=== PATIENT | female | born 1980 | race American Indian/Alaskan Native ===

== ENCOUNTER 2016-02-21 10:21 | Outpatient (CLI) | payer MEDICARE ==
[2016-02-21 10:46] LABS: Hematocrit 24.8 % (30.3-42.9); Hemoglobin 8.5 gm/dl (10.1-14.3); Mean Corpuscular HGB Conc 34 % (30-34); Mean Corpuscular Hemoglobin 32 pg (28-32); Mean Corpuscular Volume 92 fl (79-97); Platelet Count 235 K/mm3 (140-440); Red Blood Count 2.68 M/mm3 (3.65-5.03); Red Cell Distribution Width 14.8 % (13.2-15.2)
[2016-02-21 11:41] LABS: Albumin 3.7 g/dL (3.9-5); Alkaline Phosphatase 201 units/L (35-129); BUN/Creatinine Ratio 5.57; Bilirubin,Total 0.2 mg/dL (0.1-1.2); Blood Urea Nitrogen 53 mg/dL (7-17); Calcium 8.2 mg/dL (8.4-10.2); Carbon Dioxide 23 mmol/L (22-30); Chloride 97.2 mmol/L (98-107); Glucose 84 mg/dL (65-100); Potassium 4.9 mmol/L (3.6-5.0); Sodium 139 mmol/L (137-145); Total Protein 7.4 g/dL (6.3-8.2)
[2016-02-21 11:42] LABS: Alanine Aminotransferase < 5 units/L (7-56); Anion Gap 24 mmol/L
[2016-02-21 21:41] LABS: Iron 64 ug/dL (37-170); Total Iron Binding Capacity 220 mcg/dL (250-450)
== END 2016-02-21 10:22 | disposition home or self-care (01) ==
LOC: LAB 10:21
DX: N18.6 End stage renal disease (principal); D63.1 Anemia in chronic kidney disease; R06.02 Shortness of breath
CPT/HCPCS: 36415; 80053; 82728; 83550; 83735; 85027

== ENCOUNTER 2016-08-29 10:31 | Outpatient (CLI) | payer MEDICARE ==
--- NOTE | 2016-08-29 13:37 | Ultrasound Report ---
Thyroid ultrasound: Hyperparathyroid. The right thyroid lobe measures 4 x 4.2 x 8.2 cm. It is occupied by a large relatively inhomogeneous mass containing scattered cystic areas with confluence of poorly circumscribed a smaller masses. Some scattered cystic areas are noted. In the superior lobe there is a calcific shell that may lie in the periphery of a mass but the mass itself is obscured by shadowing. The left lobe measures 15 x 17 x 55 mm. It is also heterogeneous. There is a complex hypodense area in the medial mid gland measuring 17 mm which is at least partially cystic. In the inferior lobe is a similar mass which is partially solid and partially cystic measuring 2 cm. In the isthmus there are 2 relatively cystic masses containing calcification measuring 8 and 11 mm. Impression: The findings appear to be primarily those of a goiter. Although there are some defined masses none of these have any suspicious characteristics. Recommendation: Followup exam in approximately one year is recommended to reevaluate any changes.
--- NOTE | 2016-09-01 10:54 | Nuclear Medicine Report ---
Parathyroid nuclear scan: Clinical findings of secondary hyperparathyroidism. Following injection of sestamibi tagged technetium 99m initial images demonstrate normal distribution activity. A slight area of focal increased activity is identified overlying the superior right thyroid lobe. On the 3 hour washout images there is still a very faint area of retained increased activity in this region. Impression: Suspicious area overlying the upper right thyroid lobe. Recommendation: Confirmation with additional imaging such as enhanced CT scan should be considered.
== END 2016-08-29 10:32 | disposition home or self-care (01) ==
LOC: NM 10:31
DX: N18.6 End stage renal disease (principal); N25.81 Secondary hyperparathyroidism of renal origin; E07.89 Other specified disorders of thyroid
CPT/HCPCS: 76536; 78070; A9500

== ENCOUNTER 2017-01-31 07:01 | Inpatient (IN) | payer MEDICARE ==
[2017-01-31] MEDS ORDERED: ZOFRAN IM ONE (10:40)
[2017-01-31 11:01] LABS: Basophils % (Auto) 0.5 % (0.0-1.8); Eosinophils % (Auto) 0.1 % (0.0-4.3); Hematocrit 39.4 % (30.3-42.9); Hemoglobin 12.9 gm/dl (10.1-14.3); Mean Corpuscular HGB Conc 33 % (30-34); Mean Corpuscular Hemoglobin 32 pg (28-32); Mean Corpuscular Volume 97 fl (79-97); Platelet Count 312 K/mm3 (140-440); Red Blood Count 4.04 M/mm3 (3.65-5.03); Red Cell Distribution Width 14.6 % (13.2-15.2); White Blood Count 18.3 K/mm3 (4.5-11.0)
[2017-01-31] MEDS ORDERED: APRESOLINE IV ONE (11:18)
[2017-01-31] MEDS ORDERED: BENTYL PO ONE ×2 (11:18→12:00)
[2017-01-31] MEDS ORDERED: REGLAN IV ONE (11:18)
[2017-01-31] MEDS ORDERED: CARAFATE PO ONE (11:18)
--- NOTE | 2017-01-31 11:19 | Emergency Department Report ---
ED General Adult HPI - General Chief complaint: Nausea/Vomiting/Diarrhea Stated complaint: N/V Time Seen by Provider: 01/31/17 11:06 Source: patient, RN notes reviewed Mode of arrival: Ambulatory Limitations: No Limitations - History of Present Illness Initial comments: This is a 36-year-old female who is previously unknown to this provider. 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 Presents to the ER at the assistance of one of her children. Patient reports that for the past 2 weeks, she's had body aches and chills, reports low-grade fever at home to 99/100. Reports that her dialysis nurse and blood cultures, reports that blood cultures came back negative. Patient describes nausea and vomiting, epigastric and lower abdominal discomfort, and throat discomfort from nausea and vomiting. No cough or mucus production, positive total body aches, patient reports making scant urine, and denies irritative/obstructive urinary symptoms. Patient also reports being given "antibiotics" for a "stomach infection", but can't recall what she was given. Her symptoms do not radiate anywhere, and they do not have exacerbating or relieving factors. -: Gradual, week(s) Radiation: abdomen Severity scale (0 -10): 0 Quality: aching Consistency: intermittent Improves with: none Worsens with: none Associated Symptoms: fever/chills, loss of appetite, malaise, nausea/vomiting, weakness - Related Data Allergies Allergy/AdvReac Type Severity Reaction Status Date / Time promethazine HCl Allergy Itching Verified 01/31/17 11:41 [From Phenergan] ED Review of Systems ROS: Stated complaint: N/V Other details as noted in HPI ED Past Medical Hx - Past Medical History Previous Medical History?: Yes Hx Hypertension: Yes Hx Renal Disease: Yes (Home hemodialysis, Left chest AV graft) - Surgical History Past Surgical History?: Yes Additional Surgical History: Left chest permcath, AV fistula left arm - Social History Smoking Status: Never Smoker Substance Use Type: Prescribed ED Physical Exam - General Limitations: No Limitations General appearance: alert, in no apparent distress - Head Head exam: Present: atraumatic, normocephalic - Eye Eye exam: Present: normal appearance, EOMI. Absent: nystagmus - ENT ENT exam: Present: normal exam, normal orophraynx, mucous membranes moist, normal external ear exam - Neck Neck exam: Present: normal inspection, full ROM - Respiratory Respiratory exam: Present: normal lung sounds bilaterally. Absent: respiratory distress - Cardiovascular Cardiovascular Exam: Present: normal rhythm, tachycardia, normal heart sounds. Absent: systolic murmur, diastolic murmur, rubs, gallop - GI/Abdominal GI/Abdominal exam: Present: soft, tenderness, normal bowel sounds, other (there is epigastric tenderness, there is no rebound, guarding or peritoneal signs). Absent: distended, guarding, rebound, rigid, pulsatile mass - Extremities Exam Extremities exam: Present: normal inspection, full ROM, normal capillary refill , other (upper extremity AV fistula noted, no redness, pus or streaking. 2+ pulses noted in the bilateral upper and lower extremities, compartment is soft.) . Absent: pedal edema, joint swelling, calf tenderness - Back Exam Back exam: Present: normal inspection, full ROM. Absent: tenderness, CVA tenderness (R), paraspinal tenderness, vertebral tenderness - Neurological Exam Neurological exam: Present: alert, oriented X3, CN II-XII intact, other ( Extraocular movements intact. Tongue midline. No facial droop. Facial sensation intact to light touch in the V1, V2, V3 distribution bilaterally. 5 and 5 strength in 4 extremities.. Sensation is intact to light touch in 4 extremities.). Absent: motor sensory deficit - Psychiatric Psychiatric exam: Present: normal affect, normal mood - Skin Skin exam: Present: warm, dry, intact, normal color. Absent: rash ED Course Vital Signs 01/31/17 01/31/17 01/31/17 07:11 07:29 08:06 Temperature 98.7 F 99.9 F H Pulse Rate 114 H 105 H Respiratory 18 18 18 Rate Blood Pressure 164/122 164/122 183/140 O2 Sat by Pulse 99 99 Oximetry 01/31/17 01/31/17 01/31/17 10:30 10:45 11:00 Temperature Pulse Rate 100 H 103 H Respiratory 13 13 Rate Blood Pressure 174/131 194/142 O2 Sat by Pulse 99 100 98 Oximetry 01/31/17 01/31/17 01/31/17 11:30 11:43 12:05 Temperature 99.1 F Pulse Rate 107 H 114 H Respiratory 17 16 Rate Blood Pressure 194/147 194/147 O2 Sat by Pulse 100 98 Oximetry 01/31/17 12:37 Temperature Pulse Rate 100 H Respiratory 19 Rate Blood Pressure 194/147 O2 Sat by Pulse Oximetry - Reevaluation(s) Reevaluation #1: 01/31/17 11:29 Differential diagnosis, including not limited to: Viral syndrome, pneumonia, intra-abdominal infection, urinary tract infection, viremia, bacteremia, electrolyte derangement Assessment and plan: 36-year-old female with a complaint of abdominal pain, subjective fevers, epigastric burning, malaise, reports negative outpatient blood cultures with tachycardia, leukocytosis, ruling in for systemic inflammatory response syndrome. Has a mildly tender abdomen. Patient will be medicated appropriately, noncontrast CT scan of abdomen and pelvis and chest x- ray are pending, I will discuss with her lock and dam equipment repairer once her laboratory studies and CT scan have resulted. 01/31/17 12:24 Reevaluation #2: 01/31/17 13:[address] scan negative. X-ray of the chest nondiagnostic. Elevated lactic acid is noted. Elevated blood pressure also appreciated, however given the patient is ruling in for systemic inflammatory response syndrome, I am concerned about precipitating hemodynamic collapse if administering antihypertensive medication. Patient will be loaded empirically with 250 mL of normal saline, and ceftriaxone. Given underlying renal insufficiency, the recommended dose for sepsis, 30 mL/kg would not be safe or prudent at this time , especially given that the patient does not demonstrate hemodynamic instability. Discussed with covering nephrology, Dr. Marcos, he agrees with plan , and will follow in consultation. Hospital physician paged Reevaluation #3: 01/31/17 13:10 Dr Pedraza accepts patient to the medical service ED Medical Decision Making - Lab Data Result diagrams: 01/31/17 10:58 01/31/17 10:58 Vital Signs 01/31/17 01/31/17 01/31/17 07:11 07:29 08:06 Temperature 98.7 F 99.9 F H Pulse Rate 114 H 105 H Respiratory 18 18 18 Rate Blood Pressure 164/122 164/122 183/140 O2 Sat by Pulse 99 99 Oximetry 01/31/17 01/31/17 01/31/17 10:30 10:45 11:00 Temperature Pulse Rate 100 H 103 H Respiratory 13 13 Rate Blood Pressure 174/131 194/142 O2 Sat by Pulse 99 100 98 Oximetry 01/31/17 01/31/17 11:30 11:43 Temperature 99.1 F Pulse Rate 107 H Respiratory 17 Rate Blood Pressure 194/147 O2 Sat by Pulse 100 Oximetry Lab Results 01/31/17 01/31/17 01/31/17 Range/Units 10:58 10:58 10:58 WBC 18.3 H (4.5-11.0) K/mm3 RBC 4.04 (3.65-5.03) M/mm3 Hgb 12.9 (10.1-14.3) gm/dl Hct 39.4 (30.3-42.9) % MCV 97 (79-97) fl MCH 32 (28-32) pg MCHC 33 (30-34) % RDW 14.6 (13.2-15.2) % Plt Count 312 (140-440) K/mm3 Lymph % (Auto) 13.1 L (13.4-35.0) % [place] % (Auto) 8.0 H (0.0-7.3) % Eos % (Auto) 0.1 (0.0-4.3) % Baso % (Auto) 0.5 (0.0-1.8) % Lymph # 2.4 (1.2-5.4) K/mm3 [place] # 1.5 H (0.0-0.8) K/mm3 Eos # 0.0 (0.0-0.4) K/mm3 Baso # 0.1 (0.0-0.1) K/mm3 Seg Neutrophils % 78.3 H (40.0-70.0) % Seg Neutrophils # 14.3 H (1.8-7.7) K/mm3 Sodium 137 (137-145) mmol/L Potassium 4.5 (3.6-5.0) mmol/L Chloride 90.7 L (98-107) mmol/L Carbon Dioxide 23 (22-30) mmol/L Anion Gap 28 mmol/L BUN 30 H (7-17) mg/dL Creatinine 8.4 H (0.7-1.2) mg/dL Estimated GFR 6 ml/min BUN/Creatinine Ratio 4 % Glucose 87 (65-100) mg/dL Calcium 10.2 (8.4-10.2) mg/dL Total Bilirubin 0.30 (0.1-1.2) mg/dL Direct Bilirubin < 0.2 (0-0.2) mg/dL Indirect Bilirubin 0.1 mg/dL AST 26 (5-40) units/L ALT < 5 L (7-56) units/L Alkaline Phosphatase 174 H (35-129) units/L Total Creatine Kinase 74 (30-135) units/L Total Protein 9.1 H (6.3-8.2) g/dL Albumin 4.4 (3.9-5) g/dL Albumin/Globulin Ratio 0.9 % Lipase 19 (13-60) units/L HCG, Quant (0-4) mIU/mL // Range/Units 11:23 WBC (4.5-11.0) K/mm3 RBC (3.65-5.03) M/mm3 Hgb (10.1-14.3) gm/dl Hct (30.3-42.9) % MCV (79-97) fl MCH (28-32) pg MCHC (30-34) % RDW (13.2-15.2) % Plt Count (140-440) K/mm3 Lymph % (Auto) (13.4-35.0) % [place] % (Auto) (0.0-7.3) % Eos % (Auto) (0.0-4.3) % Baso % (Auto) (0.0-1.8) % Lymph # (1.2-5.4) K/mm3 [place] # (0.0-0.8) K/mm3 Eos # (0.0-0.4) K/mm3 Baso # (0.0-0.1) K/mm3 Seg Neutrophils % (40.0-70.0) % Seg Neutrophils # (1.8-7.7) K/mm3 Sodium (137-145) mmol/L Potassium (3.6-5.0) mmol/L Chloride (98-107) mmol/L Carbon Dioxide (22-30) mmol/L Anion Gap mmol/L BUN (7-17) mg/dL Creatinine (0.7-1.2) mg/dL Estimated GFR ml/min BUN/Creatinine Ratio % Glucose (65-100) mg/dL Calcium (8.4-10.2) mg/dL Total Bilirubin (0.1-1.2) mg/dL Direct Bilirubin (0-0.2) mg/dL Indirect Bilirubin mg/dL AST (5-40) units/L ALT (7-56) units/L Alkaline Phosphatase (35-129) units/L Total Creatine Kinase (30-135) units/L Total Protein (6.3-8.2) g/dL Albumin (3.9-5) g/dL Albumin/Globulin Ratio % Lipase (13-60) units/L HCG, Quant < 2 (0-4) mIU/mL - EKG Data When compared to previous EKG there are: previous EKG unavailable 01/31/17 12:25 Sinus tachycardia, 103 bpm, normal axis, QTC prolonged, poor R-wave progression , abnormal EKG, not having chest pain, not morphologically consistent with ST elevation myocardial infarction. - Radiology Data Radiology results: pending, report reviewed, image reviewed Referring Physician: RASHEED DENIS Patient Name: SAGE CABEZAS Date of : 1980 Sex: Female Report Date: 2017-01-31 Report Status: Finalized Findings [facility] [address] [place] [address] Cat Scan Report Signed Patient: SAGE CABEZAS MR#: [id number] : 1980 Acct:[id number] Age/Sex: 36 / F ADM Date: 01/31/17 Loc: ED Attending Dr: Ordering Physician: RASHEED DENIS MD Date of Service: 01/31/17 Procedure(s): CT abdomen pelvis wo con Accession Number(s): [id number] cc: RASHEED DENIS MD CT scan of abdomen and pelvis without IV contrast: Findings: Normal lung bases. No pleural pericardial effusion. Moderate sized hiatal hernia. Normal stomach gallbladder and pancreas. Calcification in the spleen probably is from calcified granuloma. Normal adrenals. Right kidney measures 7.3 cm vertically and left kidney measures 6.5 cm vertically. Subcentimeter cysts are identified in the cortex of the right kidney with the largest cyst measuring 2 cm. Exophytic large cyst in the lower pole of left kidney measures 2.2 cm. Subcentimeter exophytic cysts and intraparenchymal cysts also noted left kidney. No calculi. No evidence of hydronephrosis. Normal bladder. Uterus may be enlarged. No mass in the uterus. No free intraperitoneal fluid. No evidence of adenopathy. Small umbilical hernia containing fat. Normal appendix. Diverticulosis sigmoid colon. Large stool in the ascending and transverse colon. No bowel distention. Impression: Calcified granuloma spleen. Multiple cysts right and left kidney. Bilateral small kidneys. Moderate size hiatal hernia. Small umbilical hernia. Diverticulosis sigmoid colon stool in transverse and ascending colon Transcribed By: PTP Dictated By: TY BETTS MD Electronically Authenticated By: TY BETTS MD Signed Date/Time: 01/31/17 1214 [facility] [address] [place] [address] XRay Report Signed Patient: SAGE CABEZAS MR#: [id number] : 1980 Acct:[id number] Age/Sex: 36 / F ADM Date: 01/31/17 Loc: ED Attending Dr: Ordering Physician: RASHEED DENIS MD Date of Service: 01/31/17 Procedure(s): XR chest routine 2V Accession Number(s): [id number] cc: RASHEED DENIS MD Fluoro Time In Minutes: Single view chest: Compared to 12/20/14. History: Nausea vomiting. Fever. Findings: Cardiomegaly. Trachea is midline. Stable large well venous catheter with tip in the right atrium. No consolidation or pleural effusion. Impression: No acute cardiopulmonary findings. Transcribed By: PTP Dictated By: TY BETTS MD Electronically Authenticated By: TY BETTS MD Signed Date/Time: 01/31/17 1234 DD/ 1234 Critical care attestation.: If time is entered above; I have spent that time in minutes in the direct care of this critically ill patient, excluding procedure time. ED Disposition Clinical Impression: SIRS (systemic inflammatory response syndrome) Disposition: DC-[id number] OP ADMIT IP TO THIS HOSP Is pt being admited?: Yes Condition: Good Referrals: RASHEED TIWARI MD [Primary Care Provider] - 3-5 Days
[2017-01-31] MEDS ORDERED: TYLENOL PO ONE (11:23)
[2017-01-31 11:27] LABS: Calcium 10.2 mg/dL (8.4-10.2); Chloride 90.7 mmol/L (98-107)
[2017-01-31 11:33] LABS: Potassium 4.5 mmol/L (3.6-5.0)
[2017-01-31] MEDS ORDERED: BENTYL ONE (11:42)
[2017-01-31 11:51] LABS: Albumin 4.4 g/dL (3.9-5); Albumin/Globulin Ratio 0.9 %; Alkaline Phosphatase 174 units/L (35-129); Creatine Kinase 74 units/L (30-135); Lipase 19 units/L (13-60); Total Protein 9.1 g/dL (6.3-8.2)
[2017-01-31 11:57] LABS: Alanine Aminotransferase < 5 units/L (7-56); Bilirubin,Direct < 0.2 mg/dL (0-0.2); Bilirubin,Indirect 0.1 mg/dL
--- NOTE | 2017-01-31 12:32 | Cat Scan Report ---
CT scan of abdomen and pelvis without IV contrast: Findings: Normal lung bases. No pleural pericardial effusion. Moderate sized hiatal hernia. Normal stomach gallbladder and pancreas. Calcification in the spleen probably is from calcified granuloma. Normal adrenals. Right kidney measures 7.3 cm vertically and left kidney measures 6.5 cm vertically. Subcentimeter cysts are identified in the cortex of the right kidney with the largest cyst measuring 2 cm. Exophytic large cyst in the lower pole of left kidney measures 2.2 cm. Subcentimeter exophytic cysts and intraparenchymal cysts also noted left kidney. No calculi. No evidence of hydronephrosis. Normal bladder. Uterus may be enlarged. No mass in the uterus. No free intraperitoneal fluid. No evidence of adenopathy. Small umbilical hernia containing fat. Normal appendix. Diverticulosis sigmoid colon. Large stool in the ascending and transverse colon. No bowel distention. Impression: Calcified granuloma spleen. Multiple cysts right and left kidney. Bilateral small kidneys. Moderate size hiatal hernia. Small umbilical hernia. Diverticulosis sigmoid colon stool in transverse and ascending colon
[2017-01-31] MEDS ORDERED: ROCEPHIN/NS 1 GM/50 ML 1 GM/50 ML BAG IV ONE (12:51)
[2017-01-31] MEDS ORDERED: NACL 0.9% 250ML 250 ML IV ONE (12:51)
--- NOTE | 2017-01-31 12:52 | XRay Report ---
Single view chest: Compared to 12/20/14. History: Nausea vomiting. Fever. Findings: Cardiomegaly. Trachea is midline. Stable large well venous catheter with tip in the right atrium. No consolidation or pleural effusion. Impression: No acute cardiopulmonary findings.
[2017-01-31] MEDS ORDERED: NACL 0.9% 1000 ML 1,000 ML ONE ×2 (12:59→13:12)
[2017-01-31] MEDS ORDERED: cefTRIAXone 1 GM in NACL 0.9% 20 ML IV ONE (13:00)
[2017-01-31] MEDS ORDERED: ROCEPHIN ONE (13:04)
--- NOTE | 2017-01-31 13:10 | History and Physical Report ---
History of Present Illness Chief complaint: I have fever, and i feel sick, and i keep getting weak History of present illness: 36 YO Female with ESRD on Home HD(T,R,Sa), HTN, Obesity presents to ED for evaluation. Pt states that she has experienced feeling weak, tired for the past 2 weeks. Pt states tht she has experienced fever(subjective), body aches, and shaking chills. Pt states that symptoms have gotten worse over the past 3 days, and now she feel too weak to walk independently and connot conduct activities of daily living. Pt seen and evaluated in ED and found to have sepsis. Pt treated IAW sepsis protocol, Nephrology consulted in ED. Past History Past Medical History: ESRD, hypertension, other (obesity) Past Surgical History: Other (Left permachth, L AVF) Social history: . denies: smoking, alcohol abuse, prescription drug abuse Family history: diabetes, hypertension Medications and Allergies Allergies Allergy/AdvReac Type Severity Reaction Status Date / Time promethazine HCl Allergy Itching Verified 01/31/17 11:41 [From Phenergan] Review of Systems Constitutional: fever, chills, fatigue, weakness Ears, nose, mouth and throat: no ear pain, no ear discharge, no tinnitis, no decreased hearing, no nose pain Breasts: no change in shape, no swelling, no mass Cardiovascular: no chest pain, no orthopnea, no palpitations, no rapid/ irregular heart beat, no edema Respiratory: no cough, no cough with sputum, no excessive sputum, no hemoptysis , no shortness of breath Gastrointestinal: no nausea, no vomiting, no diarrhea, no constipation Genitourinary Female: no pelvic pain, no flank pain, no menorrhagia, no dysuria , no urinary frequency Rectal: no pain, no incontinence, no bleeding Musculoskeletal: no neck stiffness, no neck pain, no shooting arm pain, no arm numbness/tingling, no low back pain Integumentary: no rash, no pruritis, no redness, no sores, no wounds, no jaundice Neurological: no head injury, no transient paralysis, no paralysis, no weakness , no parathesias, no numbness Psychiatric: no anxiety, no memory loss, no change in sleep habits, no sleep disturbances, no insomnia, no hypersomnia Endocrine: no cold intolerance, no heat intolerance, no polyphagia, no excessive thirst, no polydipsia, no polyuria, no nocturia Hematologic/Lymphatic: no easy bruising, no easy bleeding Allergic/Immunologic: no urticaria, no allergic rhinitis, no wheezing Exam - Constitutional Vitals: Temp Pulse Resp BP Pulse Ox 99.1 F 100 H 19 194/147 98 01/31/17 11:43 01/31/17 12:37 01/31/17 12:37 01/31/17 12:37 01/31/17 12:05 General appearance: Present: mild distress - EENT Eyes: Present: PERRL ENT: hearing intact, clear oral mucosa - Neck Neck: Present: supple, normal ROM - Respiratory Respiratory effort: normal Respiratory: bilateral: CTA - Cardiovascular Heart Sounds: Present: S1 & S2. Absent: rub, click - Extremities Extremities: pulses symmetrical, No edema Peripheral Pulses: abnormal (Capillary refill greater than 3.5 seconds) - Abdominal General gastrointestinal: Present: soft, non-tender, non-distended, normal bowel sounds Female genitourinary: Present: normal - Integumentary Integumentary: Present: clear, warm, dry - Musculoskeletal Musculoskeletal: gait normal, strength equal bilaterally - Psychiatric Psychiatric: appropriate mood/affect, intact judgment & insight - Neurologic Neurologic: CNII-XII intact, moves all extremities Results - Labs CBC & Chem 7: 01/31/17 10:58 01/31/17 10:58 Labs: Abnormal lab results 01/31/17 01/31/17 01/31/17 Range/Units 10:58 10:58 10:58 WBC 18.3 H (4.5-11.0) K/mm3 Lymph % (Auto) 13.1 L (13.4-35.0) % [place] % (Auto) 8.0 H (0.0-7.3) % [place] # 1.5 H (0.0-0.8) K/mm3 Seg Neutrophils % 78.3 H (40.0-70.0) % Seg Neutrophils # 14.3 H (1.8-7.7) K/mm3 Chloride 90.7 L (98-107) mmol/L BUN 30 H (7-17) mg/dL Creatinine 8.4 H (0.7-1.2) mg/dL Lactic Acid (0.7-2.0) mmol/L ALT < 5 L (7-56) units/L Alkaline Phosphatase 174 H (35-129) units/L Total Protein 9.1 H (6.3-8.2) g/dL 01/31/ Range/Units 11:47 WBC (4.5-11.0) K/mm3 Lymph % (Auto) (13.4-35.0) % [place] % (Auto) (0.0-7.3) % [place] # (0.0-0.8) K/mm3 Seg Neutrophils % (40.0-70.0) % Seg Neutrophils # (1.8-7.7) K/mm3 Chloride (98-107) mmol/L BUN (7-17) mg/dL Creatinine (0.7-1.2) mg/dL Lactic Acid 2.40 H* (0.7-2.0) mmol/L ALT (7-56) units/L Alkaline Phosphatase (35-129) units/L Total Protein (6.3-8.2) g/dL Assessment and Plan - Patient Problems (1) Sepsis Current Visit: Yes Status: Acute Qualifiers: Sepsis type: sepsis due to unspecified organism Qualified Code(s): A41.9 - Sepsis, unspecified organism Plan to address problem: Sepsis Protocol: IV abx, IVF resuscitation IAW sepsis protocol, monitor uop q shift, serial lactic acid measurement, (2) ESRD (end stage renal disease) on dialysis Current Visit: Yes Status: Acute Plan to address problem: Nephrology consulted in ED, dialysis as per renal team. (3) Hypertensive urgency Current Visit: Yes Status: Acute Plan to address problem: monitor bp q shift, continue medical management, IV hydralazine for systolic above 155, (4) Obesity Current Visit: Yes Status: Acute Qualifiers: Body mass index: BMI 35.0-35.9 Plan to address problem: Increased physical activity at discharge, balanced diet, (5) DVT prophylaxis Current Visit: Yes Status: Acute
[2017-01-31] MEDS ORDERED: TYLENOL PO PRN (13:17)
[2017-01-31] MEDS ORDERED: NACL 0.9% 1000 ML IV ONE (13:17)
[2017-01-31] MEDS ORDERED: PROVENTIL IH PRN (13:17)
[2017-01-31] MEDS ORDERED: ZOFRAN IV PRN (13:17)
[2017-01-31] MEDS ORDERED: VANCOMYCIN VIAL IV ONE (13:17)
[2017-01-31] MEDS ORDERED: VANCOMYCIN 2,000 MG in NACL 0.9% 500 ML 500 ML IV ONE (13:45)
[2017-01-31] MEDS ORDERED: VANCOMYCIN PHARMACY TO DOSE IV SCH (14:00)
[2017-01-31] MEDS ORDERED: ZOSYN/NS 4.5GM/100ML 4.5 GM/100 ML VIAL IV SCH (14:00)
[2017-01-31] MEDS: ZOSYN/NS 2.25 GM/50ML 2.25 GM/50 ML BAG IV SCH ×2 (14:06→23:24)
[2017-01-31] MEDS ORDERED: ULTRAM PO PRN (15:46)
[2017-01-31] MEDS ORDERED: BENADRYL PO ONE (19:00)
[2017-01-31] MEDS: NORVASC PO SCH (20:44)
[2017-01-31] MEDS: CATAPRES PO SCH (20:45)
[2017-01-31] MEDS: PEPCID PO SCH (23:24)
[2017-02-01] MEDS: ZOSYN/NS 2.25 GM/50ML 2.25 GM/50 ML BAG IV SCH (05:34)
[2017-02-01 06:27] LABS: Bacteria,Urine 2+ /HPF (Negative); Bilirubin,Urine NEG (Negative); Blood,Urine LG (Negative); Ketones,Urine NEG (Negative); Leukocyte Esterase,Urine MOD (Negative); Nitrite,Urine NEG (Negative); RBC,Urine > 182.0 /HPF (0.0-6.0); Urobilinogen,Urine < 2.0 mg/dL (<2.0); WBC,Urine > 182.0 /HPF (0.0-6.0)
--- NOTE | 2017-02-01 08:46 | Progress Note ---
Assessment and Plan Assessment and plan: Sepsis Sepsis Protocol: continue IV abx, significant leukocytosis, monitor uop q shift , serial lactic acid improved, f/u cx UTI follow-up urine cultures ESRD (end stage renal disease) on dialysis Nephrology consulted in ED, dialysis as per renal team. Hypertensive urgency monitor bp q shift, continue medical management, IV hydralazine for systolic above 155, Obesity Increased physical activity at discharge, balanced diet, DVT prophylaxis Lovenox daily History Interval history: no new issues overnight Hospitalist Physical - Constitutional Vitals: Temp Pulse Resp BP Pulse Ox 98.8 F 95 H 20 137/88 100 02/01/17 07:35 02/01/17 07:35 02/01/17 07:35 02/01/17 07:35 02/01/17 07:35 General appearance: Present: no acute distress - EENT Eyes: Present: PERRL, EOM intact ENT: hearing intact, clear oral mucosa, dentition normal - Neck Neck: Present: supple, normal ROM - Respiratory Respiratory effort: normal Respiratory: bilateral: CTA - Cardiovascular Rhythm: regular Heart Sounds: Present: S1 & S2. Absent: gallop, rub - Extremities Extremities: no ischemia, No edema, Full ROM - Abdominal General gastrointestinal: soft, non-tender, non-distended, normal bowel sounds - Integumentary Integumentary: Present: clear, warm, dry - Neurologic Neurologic: CNII-XII intact, moves all extremities Results - Labs CBC & Chem 7: 01/31/17 10:58 01/31/17 10:58 Labs: Laboratory Last Values WBC 18.3 K/mm3 (4.5-11.0) H 01/31/17 10:58 RBC 4.04 M/mm3 (3.65-5.03) 01/31/17 10:58 Hgb 12.9 gm/dl (10.1-14.3) 01/31/17 10:58 Hct 39.4 % (30.3-42.9) 01/31/17 10:58 MCV 97 fl (79-97) 01/31/17 10:58 MCH 32 pg (28-32) 01/31/17 10:58 MCHC 33 % (30-34) 01/31/17 10:58 RDW 14.6 % (13.2-15.2) 01/31/17 10:58 Plt Count 312 K/mm3 (140-440) 01/31/17 10:58 Lymph % (Auto) 13.1 % (13.4-35.0) L 01/31/17 10:58 [place] % (Auto) 8.0 % (0.0-7.3) H 01/31/17 10:58 Eos % (Auto) 0.1 % (0.0-4.3) 01/31/17 10:58 Baso % (Auto) 0.5 % (0.0-1.8) 01/31/17 10:58 Lymph # 2.4 K/mm3 (1.2-5.4) 01/31/17 10:58 [place] # 1.5 K/mm3 (0.0-0.8) H 01/31/17 10:58 Eos # 0.0 K/mm3 (0.0-0.4) 01/31/17 10:58 Baso # 0.1 K/mm3 (0.0-0.1) 01/31/17 10:58 Seg Neutrophils % 78.3 % (40.0-70.0) H 01/31/17 10:58 Seg Neutrophils # 14.3 K/mm3 (1.8-7.7) H 01/31/17 10:58 Sodium 137 mmol/L (137-145) 01/31/17 10:58 Potassium 4.5 mmol/L (3.6-5.0) 01/31/17 10:58 Chloride 90.7 mmol/L (98-107) L 01/31/17 10:58 Carbon Dioxide 23 mmol/L (22-30) 01/31/17 10:58 Anion Gap 28 mmol/L 01/31/17 10:58 BUN 30 mg/dL (7-17) H 01/31/17 10:58 Creatinine 8.4 mg/dL (0.7-1.2) H 01/31/17 10:58 Estimated GFR 6 ml/min 01/31/17 10:58 BUN/Creatinine Ratio 4 % 01/31/17 10:58 Glucose 87 mg/dL (65-100) 01/31/17 10:58 Lactic Acid 1.20 mmol/L (0.7-2.0) 02/01/17 04:50 Calcium 10.2 mg/dL (8.4-10.2) 01/31/17 10:58 Total Bilirubin 0.30 mg/dL (0.1-1.2) 01/31/17 10:58 Direct Bilirubin < 0.2 mg/dL (0-0.2) 01/31/17 10:58 Indirect Bilirubin 0.1 mg/dL 01/31/17 10:58 AST 26 units/L (5-40) 01/31/17 10:58 ALT < 5 units/L (7-56) L 01/31/17 10:58 Alkaline Phosphatase 174 units/L (35-129) H 01/31/17 10:58 Total Creatine Kinase 74 units/L (30-135) 01/31/17 10:58 Total Protein 9.1 g/dL (6.3-8.2) H 01/31/17 10:58 Albumin 4.4 g/dL (3.9-5) 01/31/17 10:58 Albumin/Globulin Ratio 0.9 % 01/31/17 10:58 Lipase 19 units/L (13-60) 01/31/17 10:58 HCG, Quant < 2 mIU/mL (0-4) 01/31/17 11:23 Urine Color Red (Yellow) 01/31/17 05:10 Urine Turbidity Cloudy (Clear) 01/31/17 05:10 Urine pH 6.0 (5.0-7.0) 01/31/17 05:10 Ur Specific [place] 1.015 (1.003-1.030) 01/31/17 05:10 Urine Protein 100 mg/dl mg/dL (Negative) 01/31/17 05:10 Urine Glucose (UA) 50 mg/dL (Negative) 01/31/17 05:10 Urine Ketones Neg mg/dL (Negative) 01/31/17 05:10 Urine Blood Lg (Negative) 01/31/17 05:10 Urine Nitrite Neg (Negative) 01/31/17 05:10 Urine Bilirubin Neg (Negative) 01/31/17 05:10 Urine Urobilinogen < 2.0 mg/dL (<2.0) 01/31/17 05:10 Ur Leukocyte Esterase Mod (Negative) 01/31/17 05:10 Urine WBC (Auto) > 182.0 /HPF (0.0-6.0) H 01/31/17 05:10 Urine RBC (Auto) > 182.0 /HPF (0.0-6.0) 01/31/17 05:10 U Epithel Cells (Auto) 52.0 /HPF (0-13.0) H 01/31/17 05:10 Urine Bacteria (Auto) 2+ /HPF (Negative) 01/31/17 05:10
[2017-02-01] MEDS: CATAPRES PO SCH (09:08)
[2017-02-01] MEDS: NORVASC PO SCH (09:08)
[2017-02-01] MEDS: PEPCID PO SCH (09:09)
--- NOTE | 2017-02-01 10:42 | Consultation ---
History of Present Illness - Reason for Consult end stage renal disease Requesting physician: RUT FONTANA - History of Present Illness 36 YO Female with ESRD on Home HD, HTN, Obesity presents to ED for evaluation. Pt states that she has experienced feeling weak, tired for the past 2 weeks. Pt states tht she has experienced fever(subjective), body aches, and shaking chills. Pt states that symptoms have gotten worse over the past 3 days, and now she feel too weak to walk independently and connot conduct activities of daily living. Pt seen and evaluated in ED and found to have sepsis. Her last hemodialysis treatment was day before yesterday, i.e. Thursday. She has just completed her home dialysis training. However she has not started doing home dialysis yet. Patient denies any shortness of breath. No further nausea or vomiting. Abdominal pain has also improved Past History Past Medical History: ESRD, hypertension, other (obesity) Past Surgical History: Other (Left permachth, L AVF) Social history: . denies: smoking, alcohol abuse, prescription drug abuse Family history: diabetes, hypertension Medications and Allergies Allergies Allergy/AdvReac Type Severity Reaction Status Date / Time promethazine HCl Allergy Itching Verified 01/31/17 11:41 [From Phenergan] Home Medications Medication Instructions Recorded Confirmed Last Taken Type Carvedilol [Coreg] 25 mg PO BID 01/31/17 01/31/17 01/30/17 10:00 History 25 mg Clonidine HCl [Catapres] 0.3 tab PO TID 01/31/17 01/31/17 01/30/17 10:00 History 0.3 Losartan BID 01/31/17 01/30/17 10:00 History Sensipar 30 mg PO QPM 01/31/17 01/31/17 01/30/17 History 30 Sevelamer Carbonate [Renvela] 800 mg PO TIDWM 01/31/17 01/31/17 01/30/17 17:00 History 800 amLODIPine 10 mg PO DAILY 01/31/17 01/31/17 01/30/17 10:00 History 10 Active Meds: Active Medications Acetaminophen (Tylenol) 650 mg PO Q4H PRN PRN Reason: Pain MILD(1-3)/Fever >100.5/LEVIN Albuterol (Proventil) 2.5 mg IH Q4HRT PRN PRN Reason: Shortness Of Breath Amlodipine Besylate (Norvasc) 10 mg PO QDAY [facility] Last Admin: 02/01/17 09:08 Dose: 10 mg Clonidine HCl (Catapres) 0.3 mg PO TID [facility] Last Admin: 02/01/17 09:08 Dose: 0.3 mg Famotidine (Pepcid) 20 mg PO BID [facility] Last Admin: 02/01/17 09:09 Dose: 20 mg Piperacillin Sod/Tazobactam Sod (Zosyn/Ns 2.25 Gm/50ml) 2.25 gm in 50 mls @ 100 mls/hr IV Q8H [facility] Last Admin: 02/01/17 05:34 Dose: 100 mls/hr Ondansetron HCl (Zofran) 4 mg IV Q8H PRN PRN Reason: N/V unrelieved by Regkelvin Tramadol HCl (Ultram) 25 mg PO Q8H PRN PRN Reason: Pain, Moderate (4-6) Last Admin: 01/31/17 16:46 Dose: 25 mg Vancomycin HCl (Vancomycin Pharmacy To Dose) 1 each IV PKCONSULT [facility] PRN Reason: Protocol Review of Systems All systems: negative (negative except as noted above) Exam - Vital Signs Vital signs: Vital Signs Resp BP 18 164/122 01/31/17 07:11 01/31/17 07:11 - General Appearance General appearance: well-developed, well-nourished, appears stated age EENT: PERRL, mucous membranes moist Neck: Present: neck supple, trachea midline, Other (left IJ PermCath in place). Absent: JVD/HJR, Masses Respiratory: Clear to Ascultation Heart: regular, normal heart rate, S1S2, no murmurs Gastrointestinal: Present: normal, normoactive bowel sounds Integumentary: other (no edema) Results - Lab Results 01/31/17 10:58 01/31/17 10:58 Most recent lab results Calcium 10.2 mg/dL (8.4-10.2) 01/31/17 10:58 Assessment and Plan Impression * End-stage renal disease on maintenance hemodialysis * Sepsis * UTI * Hypertension * Anemia secondary to ESRD Recommendations * Agree with broad-spectrum IV antibiotic. Suspect source of her sepsis most likely GI. She also does have some pyuria. * No indication for hemodialysis today. Her volume status and electrolytes are all acceptable * Shall plan to dialyze her tomorrow. * Adjust diet and meds for ESRD state * Epogen per protocol * Avoid nephrotoxins * Thank you very much for the consultation. Shall follow along with you
[2017-02-01] MEDS ORDERED: NACL 0.9% 100 ML IV PRN (10:45)
[2017-02-01 12:05] VITALS: BP 146/100
== END 2017-02-01 13:15 | disposition left against medical advice (07) | DRG 871 ==
LOC: ED 07:01 → 3A 13:17
PROVIDERS: ADMIT Internal Medicine; ATTEND Hospitalist
DX: A41.9 Sepsis, unspecified organism (principal); N18.6 End stage renal disease; N39.0 Urinary tract infection, site not specified; I12.0 Hypertensive chronic kidney disease with stage 5 chronic kidney disease or end stage renal disease; D63.1 Anemia in chronic kidney disease; I16.0 Hypertensive urgency; E66.9 Obesity, unspecified; Z68.36 Body mass index [BMI] 36.0-36.9, adult; Z83.3 Family history of diabetes mellitus; Z82.49 Family history of ischemic heart disease and other diseases of the circulatory system; Z88.8 Allergy status to other drugs, medicaments and biological substances; Z95.828 Presence of other vascular implants and grafts
CPT/HCPCS: 36415; 71020; 74176; 80048; 80074; 81001; 82140; 82550; 83690; 84702; 85025; 87040; 87400; 93005; 93010; 96372; 96374; 96375; J0696; J2405; J2543; J2765; J3370; J7030; J7040

== ENCOUNTER 2017-05-07 08:52 | Day surgery (SDC) | payer MEDICARE ==
[2017-05-07] MEDS ORDERED: WATER FOR IRRIG STERILE IR ONE (08:53)
--- NOTE | 2017-05-07 09:25 | Anesthesia Day of Surgery ---
Anesthesia Day of Surgery - Day of Surgery Patient Examined: Yes Patient H&P Reviewed: Yes Patient is NPO: Yes Beta Blockers: Yes
--- NOTE | 2017-05-07 09:25 | Anesthesia Consultation ---
Anesthesia Consult and Med Hx Date of service: 05/07/17 - Airway Anesthetic Teeth Evaluation: Poor (broken teeth in back ) ROM Head & Neck: Adequate Mental/Hyoid Distance: Adequate Mallampati Class: Class II Intubation Access Assessment: Probably Good - Pulmonary Exam CTA: Yes - Cardiac Exam Cardiac Exam: RRR - Pre-Operative Health Status ASA Pre-Surgery Classification: ASA3 Proposed Anesthetic Plan: MAC - Cardiovascular System Hx Hypertension: Yes - Endocrine Hx Renal Disease: Yes (Home hemodialysis, Left chest AV graft) Hx End Stage Renal Disease: Yes - Other Systems Hx Obesity: Yes
[2017-05-07] MEDS ORDERED: XYLOCAINE 1% 20 mL ONE (09:37)
[2017-05-07] MEDS ORDERED: DIPRIVAN 10 MG/ML IV ONE ×2 (09:37)
[2017-05-07] MEDS ORDERED: ZOFRAN ONE (09:37)
--- NOTE | 2017-05-07 09:57 | Short Stay Summary ---
Short Stay Documentation Date of service: 05/07/17 - History H&P: obtained from office - Allergies and Medications Current Medications: Allergies promethazine HCl [From Phenergan] Allergy (Verified 01/31/17 11:41) Itching Home Medications Medication Instructions Recorded Confirmed Last Taken Type Carvedilol [Coreg] 25 mg PO BID 01/31/17 05/07/17 05/06/17 History RX: Clonidine HCl [Catapres] 0.3 tab PO TID 01/31/17 05/07/17 05/07/17 History Sensipar 30 mg PO QPM 01/31/17 05/07/17 05/06/17 History Sevelamer Carbonate [Renvela] 800 mg PO TIDWM 01/31/17 05/07/17 05/06/17 History amLODIPine 10 mg PO DAILY 01/31/17 05/07/17 05/06/17 History Active Medications Sodium Chloride (Nacl 0.9% 1000 Ml) 1,000 mls @ 50 mls/hr IV DIRECT DIANNE Last Admin: 05/07/17 09:37 Dose: 50 mls/hr - Brief post op/procedure progress note Date of procedure: 05/07/17 Findings: see dictated report Estimated blood loss: none Pathology: list (antral biopsies for h.pylori) Specimen disposition: to lab Condition: stable - Disposition Condition at discharge: Good Disposition: DC-01 TO HOME OR SELFCARE - Discharge Diagnoses (1) Nausea & vomiting Status: Acute Short Stay Discharge Plan Activity: other (no driving for 24 hours) Weight Bearing Status: Full Weight Bearing Diet: renal Follow up with: RASHEED TIWARI MD [Primary Care Provider] - 7 Days
[2017-05-07] MEDS ORDERED: NACL 0.9% 1000 ML 1,000 ML IV SCH (10:00)
--- NOTE | 2017-05-07 10:00 | Operative Report ---
Operative Report Operative Report: Date of procedure: 05/07/2017 Procedure: Esophagogastroduodenoscopy with antral biopsies for H. pylori Preprocedure diagnosis: Recurrent vomiting with a 30 pound weight loss. Post procedure diagnosis: Nodular duodenitis. Moderately large hiatus hernia. Endoscopist: Dr. Berrios Anesthesia: Monitored anesthesia care per anesthesia department Medications: Propofol per anesthesia. Estimated blood loss: 0 After careful discussion of the nature and purpose of the procedure as well as details the technique risks benefits and alternatives consent was obtained. The patient was placed in the left lateral decubitus position and medicated per anesthesia. The tip of the [employer] EQ 570 video scope was passed per orum under direct vision into the esophagus and advanced into the stomach and descending duodenum. The descending duodenum was normal. The duodenal bulb revealed nodularity and moderate inflammation. No discreet ulcers are present however. The pylorus was symmetrical and normal. The scope was withdrawn into the stomach and the stomach then gently insufflated with air. The antrum was normal. 3 biopsies were taken for H. pylori testing. The stomach was further insufflated and the scope was then retroflexed and partially withdrawn. The cardia revealed a hiatus hernia on retroflexed view. The fundus and body of the stomach were within normal limits and easily distensible.The scope was then withdrawn in the forward position. The esophagogastric junction was at 36 cm. A 4-5 cm hiatus hernia was present. The esophageal body was normal throughout. The procedure was was well tolerated and the patient was observed in recovery. Impressions: Nodular duodenitis, possibly related to renal disease. Rule out H. pylori. Moderately large hiatus hernia with probable acid reflux in this setting. Plan: ontinue omeprazole 40 mg daily. Await results of antral biopsies for H. pylori. The patient called the office in approximately 10 days for escutcheon of results and further management] Electronically signed: Lemuel Berrios MD
[2017-05-07 10:45] VITALS: BP 105/62
--- NOTE | 2017-05-07 14:21 | Post Anesthesia Evaluation ---
- Post Anesthesia Evaluation Patient Participated: Yes Airway Patent: Yes Stable Respiratory Function: Yes Nausea/Vomiting: No Temp > 96.8F: Yes Pain Manageable: Yes Adequeate Hydration: Yes Anesthesia Complications: No
== END 2017-05-07 08:53 | disposition home or self-care (01) ==
LOC: GIO 08:52
PROVIDERS: ATTEND Internal Medicine Gastroenterology
DX: K29.80 Duodenitis without bleeding (principal); K44.9 Diaphragmatic hernia without obstruction or gangrene; K21.9 Gastro-esophageal reflux disease without esophagitis; I12.0 Hypertensive chronic kidney disease with stage 5 chronic kidney disease or end stage renal disease; N18.6 End stage renal disease; E66.9 Obesity, unspecified; Z68.34 Body mass index [BMI] 34.0-34.9, adult; Z99.2 Dependence on renal dialysis; Z88.8 Allergy status to other drugs, medicaments and biological substances; Z98.890 Other specified postprocedural states
CPT/HCPCS: 43239; 88305; 88342; J2405; J2704; J7030

== ENCOUNTER 2018-07-22 10:19 | Inpatient (IN) | payer MEDICARE ==
[2018-07-22] MEDS ORDERED: LACTATED RINGERS 1,000 ML ONE (11:45)
--- NOTE | 2018-07-22 11:55 | History and Physical Report ---
History of Present Illness Date of examination: 07/22/18 Date of admission: 07/22/18 11:03 Chief complaint: vaginal bleeding History of present illness: 38y/o presents with dysfunctional uterine bleeding. The patient was triaged in the clinic and found to be hypotensive. She reported heavy vaginal bleeding with the passage of clots. Most recent ultrasound demonstrated a leiomyoma measuring 3.4cm. The patient complains of being lightheaded and weak. Past History Past Medical History: hypertension, renal disease Past Surgical History: other (renal transplant; dialysis shunt) Social history: single - Obstetrical History : 4 Para: 2 Hx # Term Pregnancies: 2 Number of Pregnancies: 0 Spontaneous Abortions: 2 Induced : 0 Number of Living Children: 2 Medications and Allergies Allergies Allergy/AdvReac Type Severity Reaction Status Date / Time promethazine HCl Allergy Itching Verified 01/31/17 11:41 [From Phenergan] Home Medications Medication Instructions Recorded Confirmed Last Taken Type RX: Carvedilol [Coreg] 25 mg PO BID 01/31/17 05/07/17 05/06/17 History RX: Clonidine HCl [Catapres] 0.3 tab PO TID 01/31/17 05/07/17 05/07/17 History RX: Sevelamer Carbonate [Renvela] 800 mg PO TIDWM 01/31/17 05/07/17 05/06/17 History Sensipar 30 mg PO QPM 01/31/17 05/07/17 05/06/17 History amLODIPine 10 mg PO DAILY 01/31/17 05/07/17 05/06/17 History Active Meds: Active Medications Lactated Ringer's (Lactated Ringers) 1,000 mls @ 125 mls/hr IV DIRECT DIANNE Review of Systems Constitutional: fatigue, weakness Genitourinary: vaginal bleeding - Vital Signs Vital signs: Vital Signs Temp Pulse Resp BP Pulse Ox 98.7 F 74 18 108/63 100 07/22/18 11:35 07/22/18 11:35 07/22/18 11:35 07/22/18 11:35 07/22/18 11:35 Temp Pulse Resp BP Pulse Ox 98.7 F 74 18 108/63 100 07/22/18 11:35 07/22/18 11:35 07/22/18 11:35 07/22/18 11:35 07/22/18 11:35 Results All other labs normal. Assessment and Plan - Patient Problems (1) DUB (dysfunctional uterine bleeding) Current Visit: Yes Status: Acute Plan to address problem: admit for evaluation and treatment (2) Anemia Current Visit: Yes Status: Acute (3) Uterine leiomyoma Current Visit: Yes Status: Acute
[2018-07-22] MEDS: PERCOCET 5/325 PO PRN ×2 (12:14→18:34)
[2018-07-22] MEDS: TORADOL IV SCH ×2 (12:14→20:48)
[2018-07-22] MEDS ORDERED: ZOFRAN ODT PO PRN (12:30)
[2018-07-22] MEDS ORDERED: TYLENOL PO PRN (12:30)
--- NOTE | 2018-07-22 13:03 | Event Note ---
Date: 07/22/18 Patient evaluated. States vaginal bleeding continues to be brisk. She complains of uterine cramping. Case discussed with Dr Pitts for further evaluation for a UFE. Procedure discussed with patient.
[2018-07-22] MEDS: LACTATED RINGERS 1,000 ML IV SCH ×2 (13:36→23:30)
[2018-07-22 13:49] LABS: Hematocrit 29.1 % (30.3-42.9); Hemoglobin 9.6 gm/dl (10.1-14.3); Mean Corpuscular HGB Conc 33 % (30-34); Mean Corpuscular Volume 93 fl (79-97); Platelet Count 180 K/mm3 (140-440); Red Blood Count 3.15 M/mm3 (3.65-5.03); Red Cell Distribution Width 14.7 % (13.2-15.2)
[2018-07-22 14:09] LABS: Alanine Aminotransferase 6 units/L (7-56); Albumin 3.2 g/dL (3.9-5); BUN/Creatinine Ratio 18; Blood Urea Nitrogen 16 mg/dL (7-17); Calcium 9.4 mg/dL (8.4-10.2); Hemolysis Index 10
--- NOTE | 2018-07-22 14:21 | Consultation ---
History of Present Illness - Reason for Consult Consult date: 07/22/18 Dysfunctional uterine bleeding - History of Present Illness 38 year old female presents with dysfunctional uterine bleeding. The patient has had bleeding which was low-grade ever since she had a renal transplant 8 months ago, but especially in the last 30 days which has become extensively profuse in the last 3 days with an extensive amount of clots passing with inability to even tolerate a tampon due to the clots pushing out anything in her vaginal cavity. The patient was triaged in the clinic and found to be hypotensive. She reported heavy vaginal bleeding with the passage of clots. Most recent ultrasound demonstrated a leiomyoma measuring 3.4cm. The patient complains of being lightheaded and weak. I had a discussion with the patient and she wants to preserve her fertility because she wants to have a boy and she has 4 girls. Past History Past Medical History: hypertension, renal failure (s/p transplant) Past Surgical History: Other (renal transplant ; left AV access creation and removal) Social history: single Family history: no significant family history Medications and Allergies Allergies Allergy/AdvReac Type Severity Reaction Status Date / Time promethazine HCl Allergy Itching Verified 01/31/17 11:41 [From Phenergan] Home Medications Medication Instructions Recorded Confirmed Last Taken Type Carvedilol [Coreg] 25 mg PO BID 01/31/17 05/07/17 05/06/17 History Clonidine HCl [Catapres] 0.3 tab PO TID 01/31/17 05/07/17 05/07/17 History Sensipar 30 mg PO QPM 01/31/17 05/07/17 05/06/17 History Sevelamer Carbonate [Renvela] 800 mg PO TIDWM 01/31/17 05/07/17 05/06/17 History amLODIPine 10 mg PO DAILY 01/31/17 05/07/17 05/06/17 History Active Meds: Active Medications Acetaminophen (Tylenol) 650 mg PO Q4H PRN PRN Reason: Pain, Mild (1-3) Lactated Ringer's (Lactated Ringers) 1,000 mls @ 125 mls/hr IV DIRECT DIANNE Last Admin: 07/22/18 13:36 Dose: 125 mls/hr Documented by: Ketorolac Tromethamine (Toradol) 30 mg IV Q6H DIANNE Stop: 07/27/18 12:59 Last Admin: 07/22/18 12:14 Dose: 30 mg Documented by: Ondansetron HCl (Zofran Odt) 4 mg PO Q8H PRN PRN Reason: Nausea And Vomiting Oxycodone/Acetaminophen (Percocet 5/325) 1 tab PO Q6H PRN PRN Reason: Pain, Moderate (4-6) Last Admin: 07/22/18 12:14 Dose: 1 tab Documented by: Review of Systems All systems: negative (see HPI) Exam - Constitutional Vitals: Temp Pulse Resp BP Pulse Ox 98.7 F 74 18 108/63 100 07/22/18 11:35 07/22/18 11:35 07/22/18 11:35 07/22/18 11:35 07/22/18 11:35 General appearance: Present: no acute distress - EENT Eyes: Present: EOM intact ENT: hearing intact - Respiratory Respiratory effort: normal - Extremities Extremities: pulses intact (left radial and ulnar), normal temperature, normal color - Psychiatric Psychiatric: appropriate mood/affect, cooperative Results - Labs CBC & Chem 7: 07/22/18 13:06 07/22/18 13:06 Labs: Abnormal lab results 07/22/18 07/22/18 Range/Units 13:06 13:06 WBC 20.3 H (4.5-11.0) K/mm3 RBC 3.15 L (3.65-5.03) M/mm3 Hgb 9.6 L (10.1-14.3) gm/dl Hct 29.1 L (30.3-42.9) % Carbon Dioxide 20 L (22-30) mmol/L ALT 6 L (7-56) units/L Total Protein 5.7 L (6.3-8.2) g/dL Albumin 3.2 L (3.9-5) g/dL - Imaging and Cardiology US - abdomen: report reviewed, image reviewed Assessment and Plan 38-year-old female with dysfunctional uterine bleeding ever since she had a renal transplant 8 months ago. Creatinine is preserved. Patient has been bleeding continuously for the last month and has been profusely bleeding the last 3 days. She is symptomatic. She has been refractory to medical therapy. The patient wishes to preserve future fertility and therefore a conventional uterine artery embolization will not be performed. A [place] uterine artery embolization will be performed. She will likely have postembolization syndrome for the next few days consisting of nausea, vomiting, pain, and possibly low-grade fever. This is normal. Patient will be prophylactically placed on ciprofloxacin (Levaquin at [facility]), Zofran when necessary, Dilaudid POLLS OR SURVEYS INTERVIEWER, and bowel regimen. Dilaudid POLLS OR SURVEYS INTERVIEWER can be transitioned to oral [place] or Percocet once her pain is under control. Risks, benefits, and alternatives discussed. She wishes to proceed.
[2018-07-22 14:41] LABS: Anisocytosis Few; Basophils % (Manual) 0 % (0.0-1.8); Eosinophils % (Manual) 0 % (0.0-4.3); Total Cells Counted 100
[2018-07-22 14:42] LABS: Platelet Estimate Consistent w Auto
[2018-07-22] MEDS ORDERED: XYLOCAINE 2% INFILTRATI ONE (14:48)
[2018-07-22] MEDS ORDERED: ANCEF/STERILE WATER 2 GM/20 ML 2 GM/20 ML SYRINGE IV ONE (14:48)
[2018-07-22] MEDS ORDERED: HEPARIN/NS 5000 UNIT/500ML(CATH LAB) 1,000 ML IR ONE (14:48)
[2018-07-22] MEDS ORDERED: NACL 0.9% 500 ML 500 ML ONE (14:48)
[2018-07-22] MEDS ORDERED: CALAN ONE ×2 (14:56→15:30)
[2018-07-22] MEDS ORDERED: NITROGLYCERIN SYRINGE 3 ML ONE (14:56)
[2018-07-22] MEDS ORDERED: HEPARIN 10,000 UNITS/10 ML ONE (14:56)
[2018-07-22] MEDS: SUBLIMAZE ONE ×2 (15:20→15:23)
[2018-07-22] MEDS: VERSED ONE ×2 (15:20→15:23)
[2018-07-22] MEDS ORDERED: VERSED ONE (15:29)
[2018-07-22] MEDS ORDERED: SUBLIMAZE ONE (15:29)
[2018-07-22] MEDS: GELFOAM TP ONE ×2 (15:47→16:02)
[2018-07-22] MEDS ORDERED: TORADOL ONE (16:16)
[2018-07-22] MEDS ORDERED: DILAUDID ONE ×2 (16:16→17:31)
[2018-07-22] MEDS ORDERED: ZOFRAN ONE (16:16)
--- NOTE | 2018-07-22 16:19 | Operative Report ---
Operative Report Operative Report: EXAM: 1. Abdominal aortography 2. Selection of the left internal iliac artery with angiography 3. Selection of the left uterine artery with angiography 4. Embolization of the left uterine artery with gelfoam slurry 5. Selection of the right internal iliac artery with angiography 6. Selection of the right superior gluteal artery with angiography 7. Selection of the right uterine artery with angiography 8. 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 Patient has history of leiomyoma and wishes for future fertility, and therefore Gelfoam slurry was used instead of embospheres. MEDICATIONS: Please see nursing report for full details. DEVICES: Embolic agent - gelfoam slurry Approximately 8 mL in the left uterine artery Approximately 8 mL is in the right uterine artery CONTRAST: Approximately 60 mL of nonionic contrast PROCEDURE: The risks, benefits, and alternatives were discussed; written informed consent was obtained. Patient was brought to the angiography suite and placed on the angiography table in the supine position. The left wrist was prepped and draped in a sterile fashion. Radial artery was patent with ultrasound. Under ultrasound guidance with a 21- gauge micropuncture needle, the left radial artery was accessed. 0.018 inch wire was advanced through the needle and the needle was exchanged for a 4/5 glidesheath. Radial cocktail was administered without heparin. Muhammad wire was used to select the thoracic aorta and with the use of a pigtail catheter, was negotiated into the infrarenal abdominal aorta. The aorta was selected. Digital subtraction angiography was performed in the infrarenal abdominal aorta demonstrating patency of the infrarenal abdominal aorta, bilateral common iliac arteries, bilateral external iliac arteries, and bilateral internal iliac arteries with robust bilateral uterine arteries supplying the uterus. 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 MPA catheter was used to select the left internal iliac artery and digital subtraction angiography was performed. Digital subtraction angiography demonstrated a small internal iliac artery with a large robust uterine artery. The uterine artery had a normal branching pattern. Renegade HI-GURDEEP microcatheter was advanced over a choice PT wire into the ascenting portion of the uterine artery past the descending and horizontal portion. Digital subtraction angiography was performed. Uterine artery was enlarged and had normal tortuosity and filled the left side of the uterus. Gelfoam embolization was performed until stasis was achieved. Microcatheter was removed and digital subtraction angiography was performed to the base catheter after the base catheter was aspirated and flushed. Digital subtraction angiography demonstrated stasis of the left uterine artery. Base catheter was then used to select the right internal iliac artery and digital subtraction angiography was performed. Digital subtraction angiography demonstrated a small internal iliac artery with a large robust uterine artery. The right superior gluteal artery was selected and digital subtraction angiography was performed. Digital subtraction angiography demonstrated a normal branching pattern of the posterior division of the internal iliac artery and the superior gluteal artery. The uterine artery could be seen from the anterior division. The right anterior division of the internal iliac artery was selected. Renegade HI-GURDEEP microcatheter was advanced over a choice PT wire into the ascenting portion of the uterine artery past the descending and horizontal portion. Digital subtraction angiography was performed demonstrating an enlarged uterine artery with normal tortuosity and filling of the right side of the uterus. Gelfoam embolization was performed until stasis was achieved. Microcatheter was removed and digital subtraction angiography was performed to the base catheter after the base catheter was aspirated and flushed. Digital subtraction angiography demonstrated stasis of the right uterine artery. Catheters and wires were removed. Sheath was aspirated and flushed with saline. TR Band was applied in the sheath was removed. The patient tolerated the procedure without incident. The patient was transported from the angiography suite in stable condition. FINDINGS: Please see procedure note above IMPRESSION: Successful bilateral pelvic angiograms and Gelfoam embolization of the uterine arteries.
[2018-07-22] MEDS ORDERED: BENADRYL IV PRN (16:27)
[2018-07-22] MEDS ORDERED: ZOFRAN IV PRN (16:27)
[2018-07-22] MEDS ORDERED: NARCAN 0.4 MG/1 ML IV PRN (16:27)
[2018-07-22] MEDS: DILAUDID IV PRN (16:45)
[2018-07-22] MEDS ORDERED: TYLENOL ONE (17:06)
[2018-07-22] MEDS ORDERED: DILAUDID IV ONE (17:30)
[2018-07-22] MEDS ORDERED: DILAUDID PCA 6MG/30ML IV SCH (18:00)
[2018-07-22] MEDS ORDERED: LEVAQUIN 500MG/100ML 0 MG/0 ML BAG IV ONE (18:16)
[2018-07-22] MEDS ORDERED: PERCOCET 5/325 ONE (18:36)
[2018-07-22] MEDS ORDERED: APRESOLINE IV NR (22:25)
[2018-07-23] MEDS: PERCOCET 5/325 PO PRN ×4 (00:04→22:29)
[2018-07-23] MEDS: TORADOL IV SCH ×4 (04:01→21:09)
[2018-07-23] MEDS: LEVAQUIN PO SCH (09:39)
[2018-07-23] MEDS: SENOKOT PO SCH ×2 (09:39→22:05)
[2018-07-23] MEDS: COLACE PO SCH ×2 (09:39→21:09)
--- NOTE | 2018-07-23 10:06 | Progress Note ---
Assessment and Plan Patient with expected post embolization pain. Would consider IV pain medication in addition to her baseline by mouth medication. Subjective Date of service: 07/23/18 Principal diagnosis: uterine fibroids with significant bleeding Interval history: Patient postop day 1 status post uterine artery embolization with Gelfoam to preserve fertility. She complains of abdominal pain that is controlled with oral and BARREL WATERER pain medication. Her bleeding has significantly declined. Objective - Constitutional Vitals: Vital Signs - 12hr 07/22/18 07/23/18 07/23/18 22:43 00:22 04:43 Temperature 97.4 F L 98.4 F Pulse Rate 81 75 Respiratory 18 16 Rate Blood Pressure Blood Pressure 168/107 134/72 117/70 [Left] O2 Sat by Pulse 97 100 Oximetry 07/23/18 07/23/18 07/23/18 07:32 08:04 08:31 Temperature 98.2 F Pulse Rate 79 Respiratory 20 20 20 Rate Blood Pressure 127/68 Blood Pressure [Left] O2 Sat by Pulse 93 Oximetry General appearance: Present: no acute distress - EENT Eyes: EOM intact ENT: hearing intact - Neck Neck: supple, normal ROM - Respiratory Respiratory effort: normal - Gastrointestinal Rectal Exam: deferred - Genitourinary Female genitourinary: deferred - Psychiatric Psychiatric: cooperative - Labs CBC & Chem 7: 07/22/18 13:06 07/22/18 13:06 Labs: Abnormal lab results 07/22/18 07/22/18 Range/Units 13:06 13:06 WBC 20.3 H (4.5-11.0) K/mm3 RBC 3.15 L (3.65-5.03) M/mm3 Hgb 9.6 L (10.1-14.3) gm/dl Hct 29.1 L (30.3-42.9) % Seg Neuts % (Manual) 94.0 H (40.0-70.0) % Lymphocytes % (Manual) 4.0 L (13.4-35.0) % Seg Neutrophils # Man 19.1 H (1.8-7.7) K/mm3 Lymphocytes # (Manual) 0.8 L (1.2-5.4) K/mm3 Carbon Dioxide 20 L (22-30) mmol/L ALT 6 L (7-56) units/L Total Protein 5.7 L (6.3-8.2) g/dL Albumin 3.2 L (3.9-5) g/dL Medications & Allergies - Medications Allergies/Adverse Reactions: Allergies promethazine HCl [From Phenergan] Allergy (Verified 01/31/17 11:41) Itching Home Medications: Home Medications Medication Instructions Recorded Confirmed Last Taken Type Carvedilol [Coreg] 25 mg PO BID 01/31/17 05/07/17 05/06/17 History Clonidine HCl [Catapres] 0.3 tab PO TID 01/31/17 05/07/17 05/07/17 History Sensipar 30 mg PO QPM 01/31/17 05/07/17 05/06/17 History Sevelamer Carbonate [Renvela] 800 mg PO TIDWM 01/31/17 05/07/17 05/06/17 History amLODIPine 10 mg PO DAILY 01/31/17 05/07/17 05/06/17 History Active Medications: Generic Name Dose Route Start Last Admin Trade Name Freq PRN Reason Stop Dose Admin Acetaminophen 650 mg 07/22/18 12:30 07/22/18 17:05 Tylenol PO 650 mg Q4H PRN Administration Pain, Mild (1-3) Diphenhydramine HCl 25 mg 07/22/18 16:27 Benadryl IV Q4H PRN Itching Docusate Sodium 100 mg 07/22/18 22:00 07/23/18 09:39 Colace PO 100 mg BID DIANNE Administration Hydromorphone HCl 1 mg 07/22/18 16:42 07/22/18 16:45 Dilaudid IV 1 mg NOW PRN Administration Pain , Severe (7-10) Hydromorphone/Sodium Chloride 0 mg 07/22/18 18:00 07/22/18 18:03 Dilaudid Gasoline Truck Operator 6mg/30ml IV 0.3 mg DIRECT DIANNE Administration Protocol Lactated Ringer's 1,000 mls @ 125 mls/hr 07/22/18 12:00 07/22/18 23:30 Lactated Ringers IV 125 mls/hr DIRECT DIANNE Administration Ketorolac Tromethamine 30 mg 07/22/18 13:00 07/23/18 08:04 Toradol IV 07/27/18 12:59 30 mg Q6H DIANNE Administration Levofloxacin 500 mg 07/22/18 18:00 07/23/18 09:39 Levaquin PO 07/29/18 17:59 500 mg Q24HR DIANNE Administration Naloxone HCl 0.1 mg 07/22/18 16:27 Narcan 0.4 Mg/1 Ml IV Q2MIN PRN Res Rate </= 8 or 02 SAT < 92% Ondansetron HCl 4 mg 07/22/18 12:30 07/23/18 08:31 Zofran Odt PO 4 mg Q8H PRN Administration Nausea And Vomiting Ondansetron HCl 4 mg 07/22/18 16:27 Zofran IV Q4H PRN Nausea Oxycodone/Acetaminophen 1 tab 07/22/18 12:30 07/23/18 07:32 Percocet 5/325 PO 1 tab Q6H PRN Administration Pain, Moderate (4-6) Senna 8.6 mg 07/22/18 17:00 07/23/18 09:39 Senokot PO 8.6 mg Q12HR DIANNE Administration
[2018-07-23] MEDS ORDERED: DILAUDID IM PRN (10:57)
[2018-07-23] MEDS: DILAUDID IV PRN (11:18)
--- NOTE | 2018-07-23 12:36 | Progress Note ---
Assessment and Plan A/P POD #1 for UFE with gel Pain continue with mgt seen by IR liana presnet mgt Subjective - Subjective Date of service: 07/23/18 Principal diagnosis: uterine fibroids with significant bleeding Patient reports: appetite normal, voiding normally, pain well controlled, flatus, ambulating normally Objective - Vital Signs Latest vital signs: Vital Signs Temp Pulse Resp BP BP Pulse Ox 07/23/18 08:31 98.2 F 79 20 127/68 93 07/23/18 08:04 20 07/23/18 07:32 20 07/23/18 04:43 98.4 F 75 16 117/70 100 07/23/18 00:22 97.4 F L 81 18 134/72 97 07/22/18 22:43 168/107 07/22/18 20:38 97.6 F 72 18 182/109 96 07/22/18 19:03 17 07/22/18 18:30 60 20 175/83 100 07/22/18 18:19 59 L 19 170/89 100 07/22/18 18:03 16 07/22/18 18:00 57 L 20 152/89 100 07/22/18 17:46 61 16 180/100 100 07/22/18 17:30 64 17 165/78 95 07/22/18 17:15 61 16 142/73 97 07/22/18 17:00 61 15 118/66 97 07/22/18 16:45 63 16 142/92 98 07/22/18 16:34 72 17 145/97 94 Intake and Output 07/22/18 07/23/18 07/23/18 23:59 07:59 15:59 Intake Total 1240 120 Output Total 800 Balance 440 120 Intake: IV 1000 Lactated Ringers 1,000 ml 1000 @ 125 mls/hr IV DIRECT DIANNE Rx#:[id number] Intake, Free Water 240 120 Output: Urine 800 Void 800 Other: Total, Output Amount 400 Voiding Method Bedpan Toilet # Voids Void 1 1 - Exam Breasts: Present: normal Cardiovascular: Present: Regular rate, Normal S1 Lungs: Present: Clear to auscultation, Normal air movement Abdomen: Present: normal appearance, soft, normal bowel sounds. Absent: distention, tenderness, guarding Vulva: both: normal Uterus: Present: normal, firm. Absent: bogginess, tenderness Extremities: Present: normal Deep Tendon Reflex Grade: Normal +2 - Labs Labs: Abnormal lab results 07/22/18 07/22/18 Range/Units 13:06 13:06 WBC 20.3 H (4.5-11.0) K/mm3 RBC 3.15 L (3.65-5.03) M/mm3 Hgb 9.6 L (10.1-14.3) gm/dl Hct 29.1 L (30.3-42.9) % Seg Neuts % (Manual) 94.0 H (40.0-70.0) % Lymphocytes % (Manual) 4.0 L (13.4-35.0) % Seg Neutrophils # Man 19.1 H (1.8-7.7) K/mm3 Lymphocytes # (Manual) 0.8 L (1.2-5.4) K/mm3 Carbon Dioxide 20 L (22-30) mmol/L ALT 6 L (7-56) units/L Total Protein 5.7 L (6.3-8.2) g/dL Albumin 3.2 L (3.9-5) g/dL
[2018-07-23] MEDS ORDERED: PERCOCET 5/325 PO ONE (13:28)
[2018-07-24] MEDS: TORADOL IV SCH (02:43)
[2018-07-24] MEDS: LEVAQUIN PO SCH (10:50)
[2018-07-24] MEDS: SENOKOT PO SCH ×2 (10:50→23:24)
[2018-07-24] MEDS: COLACE PO SCH ×2 (10:50→23:24)
--- NOTE | 2018-07-24 11:00 | Progress Note ---
Assessment and Plan A/P POD #2 for UFE with gel Pain continue with mgt discharge home in stable condition Subjective - Subjective Date of service: 07/24/18 Principal diagnosis: uterine fibroids with significant bleeding Patient reports: appetite normal, voiding normally, pain well controlled, flatus, ambulating normally Objective - Vital Signs Latest vital signs: Vital Signs Temp Pulse Resp BP BP Pulse Ox 07/24/18 07:29 98.2 F 100 H 18 111/82 100 07/24/18 04:50 98.4 F 72 20 115/63 99 07/24/18 01:23 98.3 F 64 20 109/56 100 07/23/18 21:05 98.4 F 75 20 113/59 100 07/23/18 16:20 98.5 F 64 18 110/69 99 07/23/18 16:08 20 07/23/18 14:02 20 07/23/18 13:26 20 07/23/18 12:53 98.3 F 18 130/71 Intake and Output 07/23/18 07/24/18 07/24/18 23:59 07:59 15:59 Other: Voiding Method Toilet - Exam Breasts: Present: normal Cardiovascular: Present: Regular rate, Normal S1 Lungs: Present: Clear to auscultation, Normal air movement Abdomen: Present: normal appearance, soft, normal bowel sounds. Absent: distention, tenderness, guarding Vulva: both: normal Uterus: Present: normal, firm. Absent: bogginess, tenderness Extremities: Present: normal Deep Tendon Reflex Grade: Normal +2
--- NOTE | 2018-07-24 11:04 | Discharge Summary ---
Providers - Providers Date of Admission: 07/22/18 11:03 Date of discharge: 07/24/18 Attending physician: JT BILL Primary care physician: PAINTER BARREL Hospitalization Reason for admission: other (vaginal bleeding ) Hospital course: Patient admitted for hevay vaginal bleeding. Was seen by IR and had a UFE performed. Bleeding subsided. Discharged home to follow uo in 3-4 weeks Condition at discharge: Good Disposition: DC-01 TO HOME OR SELFCARE Plan - Provider Discharge Summary Additional instructions: [] Smoking cessation referral if applicable(refer to patient education folder for contact #) [] Refer to [facility] Booklet Call your doctor immediately for: * Fever > 100.5 * Heavy vaginal bleeding ( >1 pad per hour) * Severe persistent headache * Shortness of breath * Reddened, hot, painful area to leg or breast * Drainage or odor from incision. * Keep incision clean and dry at all times and follow doctor's instructions regarding bathing/showering - Follow up plan Follow up: PRIMARY CARE, [Primary Care Provider] - 7 Days
[2018-07-24 11:43] LABS: Basophils # (Auto) 0.1 K/mm3 (0.0-0.1); Basophils % (Auto) 0.5 % (0.0-1.8); Eosinophils # (Auto) 0.2 K/mm3 (0.0-0.4); Hematocrit 26.3 % (30.3-42.9); Hemoglobin 8.7 gm/dl (10.1-14.3); Lymphocytes # (Auto) 1.2 K/mm3 (1.2-5.4); Lymphocytes % (Auto) 6.4 % (13.4-35.0); Mean Corpuscular HGB Conc 33 % (30-34); Mean Corpuscular Volume 93 fl (79-97); Monocytes # (Auto) 1.4 K/mm3 (0.0-0.8); Monocytes % (Auto) 7.4 % (0.0-7.3); Platelet Count 269 K/mm3 (140-440); Red Blood Count 2.83 M/mm3 (3.65-5.03); Red Cell Distribution Width 14.1 % (13.2-15.2)
[2018-07-24] MEDS ORDERED: LACTATED RINGERS 1,000 ML IV SCH (15:00)
[2018-07-24] MEDS: PERCOCET 5/325 PO PRN (19:24)
[2018-07-24] MEDS: FEOSOL PO SCH (21:32)
[2018-07-24] MEDS: PROGRAF PO SCH (22:16)
[2018-07-24] MEDS: PEPCID PO SCH (22:16)
[2018-07-25] MEDS: PERCOCET 5/325 PO PRN ×4 (04:19→18:30)
[2018-07-25] MEDS: FEOSOL PO SCH ×2 (09:09→22:40)
[2018-07-25] MEDS: COLACE PO SCH (09:11)
[2018-07-25] MEDS: PEPCID PO SCH ×2 (09:11→22:40)
[2018-07-25] MEDS: PROGRAF PO SCH ×2 (09:12→22:40)
--- NOTE | 2018-07-25 10:11 | Progress Note ---
Assessment and Plan A/P POD #3 for UFE with gel Pain continue with mgt discharge held up as patietn c/o sob CXR today consult with IM Leukocytosis - repeat cbc, ua, urine cultures, ID consult will contact IR concerning wbc anemia- on iron await cbc today Subjective - Subjective Date of service: 07/25/18 Principal diagnosis: uterine fibroids with significant bleeding Patient reports: voiding normally, pain well controlled, flatus, ambulating normally Objective - Vital Signs Latest vital signs: Vital Signs Temp Pulse Resp BP BP Pulse Ox 07/25/18 09:10 20 07/25/18 08:25 97.9 F 18 112/78 07/25/18 05:26 98.1 F 83 20 95/46 100 07/24/18 23:52 99.1 F 86 20 115/63 98 07/24/18 20:57 98.5 F 87 20 104/70 100 07/24/18 15:55 98.3 F 102 H 20 107/60 100 07/24/18 11:49 97.5 F L 116 H 18 118/86 99 Intake and Output 07/24/18 07/25/18 07/25/18 23:59 07:59 15:59 Intake Total 120 120 Output Total 200 Balance -80 120 Intake: Oral 120 120 Output: Urine 200 Void 200 Other: Total, Intake Amount 120 120 Total, Output Amount 200 Voiding Method Toilet # Voids Void 1 1 - Exam Breasts: Present: normal Cardiovascular: Present: Regular rate, Normal S1 Lungs: Present: Clear to auscultation Abdomen: Present: normal appearance, soft, normal bowel sounds. Absent: distention, tenderness, guarding Uterus: Present: normal, firm, fundal height below umbilicus. Absent: bogginess, tenderness Extremities: Present: normal Deep Tendon Reflex Grade: Normal +2 - Labs Labs: Abnormal lab results 07/24/18 Range/Units 11:09 WBC 18.8 H (4.5-11.0) K/mm3 RBC 2.83 L (3.65-5.03) M/mm3 Hgb 8.7 L (10.1-14.3) gm/dl Hct 26.3 L (30.3-42.9) % Lymph % (Auto) 6.4 L (13.4-35.0) % [place] % (Auto) 7.4 H (0.0-7.3) % [place] # 1.4 H (0.0-0.8) K/mm3 Seg Neutrophils % 84.7 H (40.0-70.0) % Seg Neutrophils # 16.0 H (1.8-7.7) K/mm3
[2018-07-25 11:26] LABS: Bacteria,Urine 2+ /HPF (Negative); Mucus,Urine 2+ /HPF
--- NOTE | 2018-07-25 12:22 | XRay Report ---
PROCEDURE: XR CHEST ROUTINE 2V TECHNIQUE: Chest, PA and lateral HISTORY: sob upon walking COMPARISON: 01/31/2017 FINDINGS: The heart size is normal. There is no pulmonary vascular congestion seen. Mediastinal contours are normal. Lungs are clear. There is no pleural effusion seen. There is no pneumothorax seen. IMPRESSION: No acute abnormality identified. This document is electronically signed by Gloria Bland MD., July 25 2018 12:20:48 PM ET
[2018-07-25] MEDS: LEVAQUIN PO SCH (12:48)
--- NOTE | 2018-07-25 16:25 | Consultation ---
History of Present Illness - Reason for Consult Consult date: 07/25/18 leukocytosis Requesting physician: JEANIE THIBODEAUX - History of Present Illness 38 y/o female with history of ESRD s/p renal transplant 8 months ago on tacrolimus admitted on 07/22/2018 due to dysfunctional uterine bleeding. Reports bleeding started after transplant but it was mild, during last month has become severe with clots associated with pelvic cramps. Denies any fever, chills, nausea, vomiting or diarrhea. Reports mild cough and shortness of reath last 2 days. On admission, temp 98.7, HR 74, R18, BP 108/63. WBC 20.3. Hg 9.6. Plat 180.. Creat 0.9 UA with 51 wbc. CXR negative. Recent ultrasound demonstrated a leiomyoma measuring 3.4cm. Patient underwent right uterine artery embolization on 07/22/2018. Review of Systems: General: no fever, chills, +generalized weakness, fatigue Cutaneous: no rash, pruritus Head: no headaches or injury Eyes: no changes in vision, eye pain, double vision Ears: no ear pain, ear discharge, ringing or hearing loss Nose: no nose bleeding, stuffiness Mouth & throat: no bleeding gums, no horseness, no dental problems, or swollen glands Neck: no pain, node enlargement/lumps, tyroid enlargement or tenderness Respiratory: no cough, wheezing, sputum, hemoptysis, pleuritic chest pain Cardiovascular: no chest pain, leg edema, cyanosis, AGUIRRE, orthopnea Musculoskeletal: no edema Gastrointestinal: no nausea, vomiting, no hematemesis, diarrhea, constipation, melena, bright red blood in stools, fecal incontinence, jaundice Genitourinary/Reproductive: no frequent urination, dysuria, hematuria, incontinence +vaginal bleeding Neurogical: no seizures, no headaches, no weakness, no paresthesias, no loss of speech or vision; no memory loss, no vertigo, no tremors, no numbness Psychiatric: stable mood; no excessive anxiety, sadness or moodiness Past History Past Medical History: hypertension, renal failure (s/p transplant) Past Surgical History: Other (renal transplant ; left AV access creation and removal) Social history: single Family history: no significant family history Medications and Allergies Allergies Allergy/AdvReac Type Severity Reaction Status Date / Time promethazine HCl Allergy Itching Verified 01/31/17 11:41 [From Phenergan] Home Medications Medication Instructions Recorded Confirmed Last Taken Type Carvedilol [Coreg] 25 mg PO BID 01/31/17 05/07/17 05/06/17 History Clonidine HCl [Catapres] 0.3 tab PO TID 01/31/17 05/07/17 05/07/17 History Sensipar 30 mg PO QPM 01/31/17 05/07/17 05/06/17 History Sevelamer Carbonate [Renvela] 800 mg PO TIDWM 01/31/17 05/07/17 05/06/17 History amLODIPine 10 mg PO DAILY 01/31/17 05/07/17 05/06/17 History levoFLOXacin [Levaquin TAB] 500 mg PO QDAY #7 tablet 07/24/18 Unknown Rx oxyCODONE /ACETAMINOPHEN [Percocet 1 tab PO Q6HR PRN #30 tablet 07/24/18 Unknown Rx 5/325] Active Meds: Active Medications Acetaminophen (Tylenol) 650 mg PO Q4H PRN PRN Reason: Pain, Mild (1-3) Last Admin: 07/22/18 17:05 Dose: 650 mg Documented by: Diphenhydramine HCl (Benadryl) 25 mg IV Q4H PRN PRN Reason: Itching Docusate Sodium (Colace) 100 mg PO BID [facility] Last Admin: 07/25/18 09:11 Dose: 100 mg Documented by: Famotidine (Pepcid) 20 mg PO BID [facility] Last Admin: 07/25/18 09:11 Dose: 20 mg Documented by: Ferrous Sulfate (Feosol) 325 mg PO BID [facility] Last Admin: 07/25/18 09:09 Dose: 325 mg Documented by: Hydromorphone/Sodium Chloride (Dilaudid Cake Tester 6mg/30ml) 0 mg IV DIRECT DIANNE; Protocol Last Admin: 07/22/18 18:03 Dose: 0.3 mg Documented by: Lactated Ringer's (Lactated Ringers) 1,000 mls @ 125 mls/hr IV DIRECT DIANNE Last Admin: 07/22/18 23:30 Dose: 125 mls/hr Documented by: Ketorolac Tromethamine (Toradol) 30 mg IV Q6H DIANNE Stop: 07/27/18 12:59 Last Admin: 07/24/18 02:43 Dose: 30 mg Documented by: Levofloxacin (Levaquin) 500 mg PO Q24HR [facility] Stop: 07/29/18 17:59 Last Admin: 07/25/18 12:48 Dose: 500 mg Documented by: Naloxone HCl (Narcan 0.4 Mg/1 Ml) 0.1 mg IV Q2MIN PRN PRN Reason: Res Rate </= 8 or 02 SAT < 92% Ondansetron HCl (Zofran Odt) 4 mg PO Q8H PRN PRN Reason: Nausea And Vomiting Last Admin: 07/23/18 08:31 Dose: 4 mg Documented by: Ondansetron HCl (Zofran) 4 mg IV Q4H PRN PRN Reason: Nausea Last Admin: 07/23/18 16:07 Dose: 4 mg Documented by: Oxycodone/Acetaminophen (Percocet 5/325) 1 tab PO Q6H PRN PRN Reason: Pain, Moderate (4-6) Last Admin: 07/25/18 12:57 Dose: 1 tab Documented by: Senna (Senokot) 8.6 mg PO Q12HR [facility] Last Admin: 07/24/18 23:24 Dose: Not Given Documented by: Tacrolimus (Prograf) 2 mg PO Q12HR [facility] Last Admin: 07/25/18 09:12 Dose: 2 mg Documented by: Physical Examination - Physical Exam Narrative exam: General appearance: Alert in NAD Eyes: anicteric sclerae, moist conjunctivae; no lid-lag; PERRLA HENT: Atraumatic; oropharynx clear with moist mucous membranes and no mucosal ulcerations/no oral thrush; normal hard and soft palate. Normal external ears. Neck: Trachea midline; supple, no thyromegaly or lymphadenopathy Lungs: CTA, with normal respiratory effort and no intercostal retractions CV: RRR no murmur Abdomen: Soft, non-tender; no masses or hepatosplenomegaly Extremities: no edema, cyanosis Skin: +tattoos, no rash, ulcers or subcutaneous nodules Psych: Appropriate affect, alert and oriented to person, place and time. Neuro: alert and oriented x 3. Moving all extermities - Constitutional Vitals: Vital Signs Temp Pulse Resp BP Pulse Ox 97.5 F L 95 H 20 106/58 100 07/25/18 11:58 07/25/18 11:58 07/25/18 12:57 07/25/18 11:58 07/25/18 11:58 Temperature -Last 24 Hours Temperature 97.5 F Temperature 97.9 F Temperature 97.9 F Temperature 98.1 F Temperature 99.1 F Temperature 98.5 F Results - Labs CBC & Chem 7: 07/24/18 11:09 07/22/18 13:06 Labs: Abnormal lab results 07/25/18 Range/Units 10:35 Urine WBC (Auto) 51.0 H (0.0-6.0) /HPF Assessment and Plan Cultures: none Assessment: 38 y/o female with history of ESRD s/p renal transplant 8 months ago on tacrolimus admitted on 07/22/2018 due to dysfunctional uterine bleeding, found with anemia and leukocytosis: 1) Leukocytosis: possible reactive due to acute blood loss/anemia +/- UTI. CXR no consolidations. 2) UTI: partially done UA shows 51 wbc. 3) Dysfunctional uterine bleeding s/p right uterine artery embolization on 07/22/2018. Recommendations: - obtain UA and urine culture to confirm UTI - renal US - stop levaquin - start ceftriaxone 2 gm IV qday - at discharge consider ceftin 500 mg PO BID total 7 days for UTI Will follow. Dottie Arroyo MD Infectious Diseases Counselor Manager [facility] M [phone]
--- NOTE | 2018-07-25 19:37 | Consultation ---
History of Present Illness - Reason for Consult Consult date: 07/25/18 Respiratory Failure. Requesting physician: JEANIE WESTON - History of Present Illness 38 YO Female with Obesity, Uterine Bleeding S/P UFE. Consult placed by Dr. Weston for respiratory failure. Pt seen and evaluated in her room. Pt acknowledges feeling weak and short of breath as well as decreased exercise tolerance over the past 1week, with worsening symptoms over the past 3 days. Pt denies fever, chills, CP, Palpitations, NVD, Shortness of breath, productive cough, skin rash, or recent ill contacts. No reported nursing events. Pt resting comfortably and denies shortness of breath at time of exam. Pt pulse oximetry is above 98% on room air. Past History Past Medical History: hypertension, renal failure (s/p transplant) Past Surgical History: Other (renal transplant ; left AV access creation and removal) Social history: single Family history: no significant family history Medications and Allergies Allergies Allergy/AdvReac Type Severity Reaction Status Date / Time promethazine HCl Allergy Itching Verified 01/31/17 11:41 [From Phenergan] Home Medications Medication Instructions Recorded Confirmed Last Taken Type Carvedilol [Coreg] 25 mg PO BID 01/31/17 05/07/17 05/06/17 History Clonidine HCl [Catapres] 0.3 tab PO TID 01/31/17 05/07/17 05/07/17 History Sensipar 30 mg PO QPM 01/31/17 05/07/17 05/06/17 History Sevelamer Carbonate [Renvela] 800 mg PO TIDWM 01/31/17 05/07/17 05/06/17 History amLODIPine 10 mg PO DAILY 01/31/17 05/07/17 05/06/17 History levoFLOXacin [Levaquin TAB] 500 mg PO QDAY #7 tablet 07/24/18 Unknown Rx oxyCODONE /ACETAMINOPHEN [Percocet 1 tab PO Q6HR PRN #30 tablet 07/24/18 Unknown Rx 5/325] Active Meds: Active Medications Acetaminophen (Tylenol) 650 mg PO Q4H PRN PRN Reason: Pain, Mild (1-3) Last Admin: 07/22/18 17:05 Dose: 650 mg Documented by: Diphenhydramine HCl (Benadryl) 25 mg IV Q4H PRN PRN Reason: Itching Docusate Sodium (Colace) 100 mg PO BID [facility] Last Admin: 07/25/18 09:11 Dose: 100 mg Documented by: Famotidine (Pepcid) 20 mg PO BID [facility] Last Admin: 07/25/18 09:11 Dose: 20 mg Documented by: Ferrous Sulfate (Feosol) 325 mg PO BID [facility] Last Admin: 07/25/18 09:09 Dose: 325 mg Documented by: Hydromorphone/Sodium Chloride (Dilaudid [employer] 6mg/30ml) 0 mg IV DIRECT DIANNE; Protocol Last Admin: 07/22/18 18:03 Dose: 0.3 mg Documented by: Lactated Ringer's (Lactated Ringers) 1,000 mls @ 125 mls/hr IV DIRECT DIANNE Last Admin: 07/22/18 23:30 Dose: 125 mls/hr Documented by: Ceftriaxone Sodium (Rocephin/Ns 2 Gm/100 Ml) 2 gm in 100 mls @ 200 mls/hr IV Q24H [facility]; Protocol Ketorolac Tromethamine (Toradol) 30 mg IV Q6H [facility] Stop: 07/27/18 12:59 Last Admin: 07/24/18 02:43 Dose: 30 mg Documented by: Naloxone HCl (Narcan 0.4 Mg/1 Ml) 0.1 mg IV Q2MIN PRN PRN Reason: Res Rate </= 8 or 02 SAT < 92% Ondansetron HCl (Zofran Odt) 4 mg PO Q8H PRN PRN Reason: Nausea And Vomiting Last Admin: 07/23/18 08:31 Dose: 4 mg Documented by: Ondansetron HCl (Zofran) 4 mg IV Q4H PRN PRN Reason: Nausea Last Admin: 07/23/18 16:07 Dose: 4 mg Documented by: Oxycodone/Acetaminophen (Percocet 5/325) 1 tab PO Q6H PRN PRN Reason: Pain, Moderate (4-6) Last Admin: 07/25/18 18:30 Dose: 1 tab Documented by: Senna (Senokot) 8.6 mg PO Q12HR [facility] Last Admin: 07/24/18 23:24 Dose: Not Given Documented by: Tacrolimus (Prograf) 2 mg PO Q12HR [facility] Last Admin: 07/25/18 09:12 Dose: 2 mg Documented by: Review of Systems Constitutional: fatigue, weakness, no weight loss, no weight gain, no fever, no chills Ears, nose, mouth and throat: no ear pain, no ear discharge, no tinnitis, no decreased hearing, no nose pain, no nasal congestion Breasts: no change in shape, no swelling, no mass Cardiovascular: no rapid/irregular heart beat, no edema, no syncope, no lightheadedness Respiratory: no cough, no cough with sputum, no excessive sputum, no hemoptysis Gastrointestinal: no nausea, no vomiting, no diarrhea, no constipation, no change in bowel habits Genitourinary Female: no pelvic pain, no flank pain, no menorrhagia, no dysuria, no urinary frequency Rectal: no pain, no incontinence, no bleeding Musculoskeletal: no neck pain, no shooting arm pain, no arm numbness/tingling, no leg numbness/tingling Integumentary: no rash, no pruritis, no redness, no sores, no wounds Neurological: no paralysis, no weakness, no parathesias, no numbness, no tingling Psychiatric: no memory loss, no change in sleep habits, no sleep disturbances, no insomnia, no hypersomnia, no change in appetite Endocrine: no cold intolerance, no heat intolerance, no polyphagia, no polydipsia, no polyuria, no nocturia Hematologic/Lymphatic: no easy bruising, no easy bleeding, no lymphadenopathy, no lymphedema Allergic/Immunologic: no urticaria, no allergic rhinitis, no wheezing, no per sistent infections, no anaphylaxis, no angioedema Exam - Constitutional Vitals: Temp Pulse Resp BP Pulse Ox 97.8 F 78 20 115/62 100 07/25/18 16:36 07/25/18 16:36 07/25/18 18:30 07/25/18 16:36 07/25/18 16:36 General appearance: Present: no acute distress, well-nourished - EENT Eyes: Present: PERRL ENT: hearing intact, clear oral mucosa - Neck Neck: Present: supple, normal ROM - Respiratory Respiratory effort: normal Respiratory: bilateral: CTA - Cardiovascular Heart Sounds: Present: S1 & S2. Absent: rub, click - Extremities Extremities: pulses symmetrical, No edema Peripheral Pulses: within normal limits - Abdominal General gastrointestinal: Present: soft, non-tender, non-distended, normal bowel sounds Female genitourinary: Present: normal - Integumentary Integumentary: Present: clear, warm, dry - Musculoskeletal Musculoskeletal: gait normal, strength equal bilaterally - Psychiatric Psychiatric: appropriate mood/affect, intact judgment & insight - Neurologic Neurologic: CNII-XII intact, moves all extremities Results - Labs CBC & Chem 7: 07/24/18 11:09 07/22/18 13:06 Labs: Abnormal lab results 07/25/18 Range/Units 10:35 Urine WBC (Auto) 51.0 H (0.0-6.0) /HPF Assessment and Plan - Patient Problems (1) Anemia Current Visit: Yes Status: Acute Qualifiers: Anemia type: iron deficiency Iron deficiency anemia type: chronic blood loss Qualified Code(s): D50.0 - Iron deficiency anemia secondary to blood loss (chronic) Plan to address problem: Symptomatic Anemia: Iron replacement therapy, consider blood transfusion, bowel regimen for constipation. F/U VQ scan which was ordered by the primary team.
[2018-07-25] MEDS ORDERED: ROCEPHIN/NS 2 GM/100 ML 2 GM/100 ML BAG IV SCH (20:00)
[2018-07-25] MEDS: LACTATED RINGERS 1,000 ML IV SCH (20:31)
[2018-07-26] MEDS: PERCOCET 5/325 PO PRN ×4 (00:24→21:54)
[2018-07-26] MEDS: TORADOL IV SCH ×6 (07:00→15:47)
--- NOTE | 2018-07-26 07:58 | Progress Note ---
Assessment and Plan A:POD #4 s/p uterine fibroid embolization with gel foam Symptomatic anemia Leukocytosis, UTI on Rocephin All outplacement consultant input greatly appreciated P: Recheck CBC, consider transfusion of 1 unit PRBCs and follow symptoms. Continue antibiotics Follow up renal ultrasound Closely monitor clinical status Subjective - Subjective Date of service: 07/26/18 Principal diagnosis: uterine fibroids with significant bleeding Interval history: Pt reports feeling short of breath, even before her uterine artery embolization since she started having heavy vaginal bleeding. She usually walks 5 miles per day, and reports feeling dizzy now when she walks from the bed to the bathroom. She denies vaginal bleeding this morning however. Patient reports: pain well controlled, no ambulating normally Objective - Vital Signs Latest vital signs: Vital Signs Temp Pulse Resp Resp BP BP Pulse Ox 07/26/18 05:30 98.0 F 82 20 99/59 100 07/26/18 00:27 99.7 F H 94 H 20 109/72 96 07/26/18 00:24 20 07/25/18 20:30 98.5 F 82 20 130/87 100 07/25/18 18:30 20 07/25/18 16:36 97.8 F 78 20 115/62 100 07/25/18 12:57 20 07/25/18 11:58 97.5 F L 95 H 20 106/58 100 07/25/18 11:57 100 07/25/18 09:10 20 07/25/18 08:30 20 07/25/18 08:25 97.9 F 18 112/78 07/25/18 08:20 97.9 F 66 20 112/78 Intake and Output 07/25/18 07/26/18 07/26/18 22:59 06:59 14:59 Intake Total 120 Balance 120 Intake: Oral 120 Other: Total, Intake Amount 120 # Voids Void 1 1 - Exam Breasts: Present: deferred Cardiovascular: Present: Regular rate Lungs: Present: Clear to auscultation Abdomen: Present: soft - Labs Labs: Abnormal lab results 07/25/18 Range/Units 10:35 Urine WBC (Auto) 51.0 H (0.0-6.0) /HPF
--- NOTE | 2018-07-26 08:32 | Ultrasound Report ---
ULTRASOUND RENAL BILATERAL HISTORY: Evaluate for pyelonephritis, stones. TECHNIQUE: transabdominal ultrasound with color Doppler interrogation. FINDINGS: Compared to the CT abdomen pelvis without contrast dated 01/31/17. The [place] kidneys are atrophic and echogenic measuring 6 - 7 cm in length. There are a few tiny cysts in the [place] kidneys but no evidence for large stones, mass or hydronephrosis. The renal transplant in the right lower quadrant appears normal size, contour and echotexture measuring 12.3 x 6.7 x 6.6 cm. Cortical thickness measures 1.8 cm. No evidence for focal lesion, hydronephrosis or perinephric fluid. Color Doppler interrogation demonstrates good perfusion of the right renal hilum. The bladder is empty. IMPRESSION: Chronic renal parenchymal disease. The renal transplant in the right lower quadrant is within normal limits. No evidence for obstructing stones. Pyelonephritis cannot be confirmed on ultrasound but there are no obvious findings to suggest pyelonephritis. If pyelonephritis is suspected, CT with contrast is recommended.
--- NOTE | 2018-07-26 08:51 | Nuclear Medicine Report ---
LUNG SCAN, VENTILATION AND PERFUSION: History: Short of breath, status post UFE assess for pulmonary embolism. Technique: 5mci of Tc99m MAA was infused for the perfusion images. 15mci XE 133 gas was inhaled for the ventilatory images. Correlation is made with a chest x-ray dated 07/25/18 at 1048 hrs. Findings: Inhalation of Xenon gas demonstrates a normal distribution of the activity throughout both lungs. The wash out phases demonstrate minimal retention of the radiotracer bilaterally, more so in the left lung. This suggests minimal obstructive pulmonary disease. After injection of Technetium 99m macroaggregated albumin gamma camera imaging of the lungs in multiple projections demonstrates A rather large perfusion defect in the right upper lobe. This appears to involve multiple segmental arteries. No abnormality is identified in this area on the chest x-ray. There is homogeneous distribution of the radiotracer throughout the remainder of the right lung and left lung. IMPRESSION: Intermediate to high probability of pulmonary embolus. A large perfusion defect is identified in the right upper lobe. Consider further evaluation with CTA chest as needed. These findings were relayed to Maddy UP, at 0844 hours.
--- NOTE | 2018-07-26 09:06 | Event Note ---
Date: 07/26/[address] Reich regarding V/Q scan with concern for pulmonary embolism. STAT consult to Internal Medicine for anticoagulation choice in the setting of recent PE and renal transplant. Dr Disla contacted at 0857 am.
[2018-07-26 10:18] LABS: Basophils # (Auto) 0.2 K/mm3 (0.0-0.1); Basophils % (Auto) 0.9 % (0.0-1.8); Eosinophils # (Auto) 0.2 K/mm3 (0.0-0.4); Hematocrit 26.3 % (30.3-42.9); Hemoglobin 8.6 gm/dl (10.1-14.3); Lymphocytes # (Auto) 1.5 K/mm3 (1.2-5.4); Lymphocytes % (Auto) 7.9 % (13.4-35.0); Mean Corpuscular HGB Conc 33 % (30-34); Mean Corpuscular Volume 93 fl (79-97); Monocytes # (Auto) 1.5 K/mm3 (0.0-0.8); Monocytes % (Auto) 8.2 % (0.0-7.3); Platelet Count 352 K/mm3 (140-440); Red Blood Count 2.84 M/mm3 (3.65-5.03); Red Cell Distribution Width 14.4 % (13.2-15.2)
[2018-07-26] MEDS: FEOSOL PO SCH ×2 (10:47→21:55)
[2018-07-26] MEDS: PEPCID PO SCH ×2 (10:47→21:55)
[2018-07-26] MEDS: PROGRAF PO SCH ×2 (10:48→21:55)
[2018-07-26] MEDS: SENOKOT PO SCH ×4 (10:48→21:57)
--- NOTE | 2018-07-26 10:52 | Progress Note ---
Assessment and Plan Cultures: 07/25/2018 Urine: in progress Assessment: 38 y/o female with history of ESRD s/p renal transplant 8 months ago on tacrolimus admitted on 07/22/2018 due to dysfunctional uterine bleeding, found with anemia and leukocytosis: 1) Leukocytosis: Continuing, possible reactive due to acute blood loss/anemia +/- UTI. CXR no consolidations. Presumed PE. 2) UTI: partially done UA shows 51 wbc.Urine culture in progress. Renal US shows the renal transplant in the right lower quadrant is within normal limits.No evidence for obstructing stones. There are no obvious findings to suggest pyelon ephritis 3) Dysfunctional uterine bleeding s/p right uterine artery embolization on 07/22/2018. 38 Presumed Pulmonary Embolus: VQ scan with concern for PE. On heparin. Recommendations: - follow-up U/A and urine culture - continue ceftriaxone 2 gm IV qday,D2 - at discharge consider ceftin 500 mg PO BID total 7 days for UTI [facility] M: [id number] O:[phone] Subjective Date of service: 07/26/18 Principal diagnosis: uterine fibroids with significant bleeding Interval history: Patient seen and examined. Reports no pain or generalized weakness. SOB on admission, no improved. No fevers . Objective - Exam Narrative Exam: General appearance: Alert in NAD Eyes: anicteric sclerae, moist conjunctivae; no lid-lag; PERRLA HENT: Atraumatic; oropharynx clear with moist mucous membranes and no mucosal ulcerations/no oral thrush; normal hard and soft palate. Normal external ears. Neck: Trachea midline; supple, no thyromegaly or lymphadenopathy Lungs: CTA, with normal respiratory effort and no intercostal retractions CV: RRR no murmur Abdomen: Soft, non-tender; no masses or hepatosplenomegaly Extremities: no edema, cyanosis Skin: +tattoos, no rash, ulcers or subcutaneous nodules Psych: Appropriate affect, alert and oriented to person, place and time. Neuro: alert and oriented x 3. Moving all extremities - Constitutional Vitals: Vital Signs Temp Pulse Resp BP Pulse Ox 98.0 F 82 20 99/59 100 07/26/18 05:30 07/26/18 05:30 07/26/18 05:30 06/17/19 05:30 07/26/18 05:30 Temperature -Last 24 Hours Temperature 98.0 F Temperature 99.7 F Temperature 98.5 F Temperature 97.8 F Temperature 97.5 F - Labs CBC & Chem 7: 07/26/18 09:32 07/22/18 13:06 Labs: Abnormal lab results 07/25/18 07/26/18 Range/Units 10:35 09:32 WBC 18.9 H (4.5-11.0) K/mm3 RBC 2.84 L (3.65-5.03) M/mm3 Hgb 8.6 L (10.1-14.3) gm/dl Hct 26.3 L (30.3-42.9) % Lymph % (Auto) 7.9 L (13.4-35.0) % [place] % (Auto) 8.2 H (0.0-7.3) % [place] # 1.5 H (0.0-0.8) K/mm3 Baso # 0.2 H (0.0-0.1) K/mm3 Seg Neutrophils % 82.0 H (40.0-70.0) % Seg Neutrophils # 15.5 H (1.8-7.7) K/mm3 Urine WBC (Auto) 51.0 H (0.0-6.0) /HPF
[2018-07-26] MEDS ORDERED: HEPARIN 10,000 UNITS/10 ML IV ONE (11:45)
[2018-07-26] MEDS: COLACE PO SCH ×2 (11:50→21:54)
[2018-07-26] MEDS: LEVAQUIN PO SCH (12:09)
[2018-07-26] MEDS: HEPARIN/ 0.45% NACL-25,000 UNIT/500 ML 25,000 UNIT/500 ML BAG IV SCH (12:59)
[2018-07-26 13:21] LABS: Hematocrit 23.9 % (30.3-42.9); Hemoglobin 7.8 gm/dl (10.1-14.3)
[2018-07-26] MEDS ORDERED: MYCOPHENOLATE MOFETIL 1000 MG PO SCH (13:30)
[2018-07-26 13:31] LABS: INR 1.14 (0.87-1.13)
[2018-07-26 13:32] LABS: Partial Thromboplastin Time 23.9 Sec. (24.2-36.6)
--- NOTE | 2018-07-26 14:39 | Progress Note ---
Assessment and Plan 38-year-old female with dysfunctional uterine bleeding ever since she had a renal transplant 8 months ago. Creatinine is preserved. Fibroids on uterus ultrasound without evidence of submucosal fibroid. Status post gelfoam UFE with good control of bleeding and minimal pelvic discomfort. Post embolization syndrome has improved. No significant fever, nausea, or vomiting. Pain has improved greatly. Continue PPX antibiotics. Has SOB of unclear cause. CXR normal. V/Q demonstrates intermediate to high probability for PE, but the perfusion defect is isolated to the right upper lung and does not involve the lower lobes and is not bilateral, all of which is strange for a PE. Given her renal transplant issues, risk of contrast may outweight benefit and treating may be reasonable instead of proceeding with CTPA. Anticoagulation for 3 months is reasonable, unless her uterine bleeding worsens. If it worsens, then she should probably discontinue anticoagulation. Recommend conversion to Eliquis due to renal independent dose. Eliquis is 10 mg PO BID x 7 days, then 5 mg PO BID afterwards. Given the previous bleeding iss ues, immediate conversion to 5 mg PO BID is reasonable. Followup as outpatient. Subjective Date of service: 07/26/18 Principal diagnosis: uterine fibroids with significant bleeding Interval history: Doing better. Has some SOB. No leg pain. Minimal abdominal pain. Minimal spotting. VQ scan strange -- right upper lung perfusion defect with ventilation. Unusual for a PE since it is not the lower lobe and not bilateral. CXR normal. Objective - Constitutional Vitals: Vital Signs - 12hr 07/26/18 07/26/18 05:30 11:45 Temperature 98.0 F 98.3 F Pulse Rate 82 85 Respiratory 20 20 Rate Blood Pressure 106/64 Blood Pressure 99/59 [Left] O2 Sat by Pulse 100 99 Oximetry General appearance: Present: no acute distress - EENT Eyes: EOM intact ENT: hearing intact - Respiratory Respiratory effort: normal (at rest) Extremities: pulses intact, normal temperature, normal color - Peripheral pulses dorsalis pedis Pulse Strength: 2+ (bilateral) radial pulse Pulse Strength: 2+ (left radial intact and ulnar intact) - Gastrointestinal General gastrointestinal: Present: other (minimal pubic discomfort) - Psychiatric Psychiatric: appropriate mood/affect, cooperative - Labs CBC & Chem 7: 07/26/18 12:31 07/22/18 13:06 Labs: Abnormal lab results 07/26/18 07/26/18 07/26/18 Range/Units 09:32 12:31 12:31 WBC 18.9 H (4.5-11.0) K/mm3 RBC 2.84 L (3.65-5.03) M/mm3 Hgb 8.6 L 7.8 L (10.1-14.3) gm/dl Hct 26.3 L 23.9 L (30.3-42.9) % Lymph % (Auto) 7.9 L (13.4-35.0) % [place] % (Auto) 8.2 H (0.0-7.3) % [place] # 1.5 H (0.0-0.8) K/mm3 Baso # 0.2 H (0.0-0.1) K/mm3 Seg Neutrophils % 82.0 H (40.0-70.0) % Seg Neutrophils # 15.5 H (1.8-7.7) K/mm3 INR 1.14 H (0.87-1.13) APTT 23.9 L (24.2-36.6) Sec. Medications & Allergies - Medications Allergies/Adverse Reactions: Allergies promethazine HCl [From Phenergan] Allergy (Verified 01/31/17 11:41) Itching Home Medications: Home Medications Medication Instructions Recorded Confirmed Last Taken Type Carvedilol [Coreg] 25 mg PO BID 01/31/17 05/07/17 05/06/17 History Sensipar 30 mg PO QPM 01/31/17 05/07/17 05/06/17 History amLODIPine 10 mg PO DAILY 01/31/17 05/07/17 05/06/17 History oxyCODONE /ACETAMINOPHEN [Percocet 1 tab PO Q6HR PRN #30 tablet 07/24/18 Unknown Rx 5/325] Cellcept 1,000 mg PO BID 07/26/18 07/26/18 Unknown History Ferrous Sulfate [Feosol 325 MG tab] 325 mg PO BID #60 tablet 07/26/18 Unknown Rx Tacrolimus [Prograf] 2 mg PO Q12H 07/26/18 07/26/18 Unknown History predniSONE [Deltasone] 5 mg PO QDAY 07/26/18 07/26/18 Unknown History Active Medications: Generic Name Dose Route Start Last Admin Trade Name Emilia PRN Reason Stop Dose Admin Acetaminophen 650 mg 07/22/18 12:30 07/22/18 17:05 Tylenol PO 650 mg Q4H PRN Administration Pain, Mild (1-3) Diphenhydramine HCl 25 mg 07/22/18 16:27 Benadryl IV Q4H PRN Itching Docusate Sodium 100 mg 07/22/18 22:00 07/26/18 11:50 Colace PO Not Given BID DIANNE Famotidine 20 mg 07/24/18 22:00 07/26/18 10:47 Pepcid PO 20 mg BID DIANNE Administration Ferrous Sulfate 325 mg 07/24/18 22:00 07/26/18 10:47 Feosol PO 325 mg BID DIANNE Administration Hydromorphone/Sodium Chloride 0 mg 07/22/18 18:00 07/22/18 18:03 Dilaudid Beet Flumer 6mg/30ml IV 0.3 mg DIRECT DIANNE Administration Protocol Lactated Ringer's 1,000 mls @ 125 mls/hr 07/22/18 12:00 07/25/18 20:31 Lactated Ringers IV 125 mls/hr DIRECT DIANNE Administration Ceftriaxone Sodium 2 gm in 100 mls @ 200 mls/hr 07/25/18 20:00 07/25/18 20:30 Rocephin/Ns 2 Gm/100 Ml IV 200 mls/hr Q24H DIANNE Administration Protocol Heparin Sodium/Sodium Chloride 25,000 unit in 500 mls @ 27 mls/hr 07/26/18 12:00 07/26/18 12:59 Heparin/ 0.45% Nacl-25,000 Unit/500 Ml IV 1,350 units/hr TITR DIANNE 27 mls/hr Administration Protocol 1,350 UNITS/HR Mycophenolate Mofetil 1,000 mg 07/26/18 14:30 Cellcept PO BID DIANNE Naloxone HCl 0.1 mg 07/22/18 16:27 Narcan 0.4 Mg/1 Ml IV Q2MIN PRN Res Rate </= 8 or 02 SAT < 92% Ondansetron HCl 4 mg 07/22/18 12:30 07/23/18 08:31 Zofran Odt PO 4 mg Q8H PRN Administration Nausea And Vomiting Ondansetron HCl 4 mg 07/22/18 16:27 07/23/18 16:07 Zofran IV 4 mg Q4H PRN Administration Nausea Oxycodone/Acetaminophen 2 tab 07/26/18 00:01 07/26/18 09:24 Percocet 5/325 PO 2 tab Q6H PRN Administration Pain, Moderate (4-6) Prednisone 5 mg 07/26/18 14:00 Deltasone PO QDAY DIANNE Senna 8.6 mg 07/22/18 17:00 07/26/18 11:50 Senokot PO Not Given Q12HR DIANNE Tacrolimus 2 mg 07/24/18 22:00 07/26/18 10:48 Prograf PO 2 mg Q12HR DIANNE Administration
[2018-07-26] MEDS ORDERED: ELIQUIS PO SCH (15:00)
--- NOTE | 2018-07-26 15:16 | Progress Note ---
Assessment and Plan Acute PE - Patient on heparin drip - Would recommend to confirm the diagnosis with CTA chest - Patient has history of kidney transplant, would consider getting nephrology recommendation for CTA chest Anemia, likely from chronic blood loss from Uterine Bleeding - Continue to monitor H&H, transfuse as needed History of kidney transplant - Continue CellCept, prednisone and Prograf - Consult nephrology DVT prophylaxis, on heparin drip Brief History: 38 YO Female with Obesity, Uterine Bleeding S/P UFE consult placed to hospitalist medicine by Dr. Weston for respiratory failure. VQ scan was ordered and showed intermediate to high probability of PE. Patient has history of end- stage renal disease with kidney transplant. Nephrology consult placed to get recommendation for CTA chest to confirm the diagnosis of PE. Radiological data: VQ scan: Intermediate to high probability for PE Hospitalist Physical exam: GENERAL: well-developed and well-nourished -[place] female lying on bed appeared to be in no discomfort. HEENT: Normocephalic. Atraumatic. No conjunctival congestion or icterus. Patient has moist mucous membranes. NECK: Supple. Trachea midline. CHEST/LUNGS: Clear to auscultated bilaterally, breathing nonlabored. No wheezes crackles or rhonchi. HEART/CARDIOVASCULAR: Regular in rate and rhythm. S1 and S2 positive. ABDOMEN: Abdomen is soft, nontender. Patient has normal bowel sounds. SKIN: There is no rash. Warm and dry. NEURO: No focal motor deficit. Follows command. MUSCULOSKELETAL: No joint effusion or tenderness. EXTRIMITY: No edema, no cyanosis or clubbing. PSYCH: Cooperative. Subjective Date of service: 07/26/18 Principal diagnosis: uterine fibroids with significant bleeding Interval history: Patient seen and examined. Medical records and medication list reviewed. No acute event overnight noted by the RN. Patient denies any chest pain or difficulty breathing. Patient is tolerating diet. Discussed plan of care at bedside with patient. Objective - Constitutional Vitals: Vital Signs - 12hr 07/26/18 07/26/18 05:30 11:45 Temperature 98.0 F 98.3 F Pulse Rate 82 85 Respiratory 20 20 Rate Blood Pressure 106/64 Blood Pressure 99/59 [Left] O2 Sat by Pulse 100 99 Oximetry - Labs CBC & Chem 7: 07/26/18 12:31 07/22/18 13:06 Labs: Abnormal lab results 07/26/18 07/26/18 07/26/18 Range/Units 09:32 12:31 12:31 WBC 18.9 H (4.5-11.0) K/mm3 RBC 2.84 L (3.65-5.03) M/mm3 Hgb 8.6 L 7.8 L (10.1-14.3) gm/dl Hct 26.3 L 23.9 L (30.3-42.9) % Lymph % (Auto) 7.9 L (13.4-35.0) % [place] % (Auto) 8.2 H (0.0-7.3) % [place] # 1.5 H (0.0-0.8) K/mm3 Baso # 0.2 H (0.0-0.1) K/mm3 Seg Neutrophils % 82.0 H (40.0-70.0) % Seg Neutrophils # 15.5 H (1.8-7.7) K/mm3 INR 1.14 H (0.87-1.13) APTT 23.9 L (24.2-36.6) Sec.
[2018-07-26] MEDS: CELLCEPT PO SCH ×2 (15:38→21:54)
[2018-07-26] MEDS: DELTASONE PO SCH (15:38)
[2018-07-26] MEDS: ROCEPHIN/NS 2 GM/100 ML 2 GM/100 ML BAG IV SCH (20:28)
--- NOTE | 2018-07-26 21:14 | Vascular Lab Report ---
PROCEDURE: US BILATERAL LOWER EXTREMITY VENOUS DUPLEX DOPPLER TECHNIQUE: Duplex Doppler ultrasound of the BILATERAL common and superficial femoral, popliteal, pos terior tibial and proximal deep femoral and greater saphenous veins was attempted. Webster scale imaging with and without compression, spectral waveform analysis with and without augmentation, and color fl ow Doppler were employed. CPT 72640 HISTORY: COMPARISONS: None . FINDINGS: RIGHT LOWER EXTREMITY: Deep Venous Thrombus: None . Soft tissue abnormality: None . Other: None . LEFT LOWER EXTREMITY: Deep Venous Thrombus: None . Soft tissue abnormality: None . Other: None . IMPRESSION: No evidence of deep venous thrombosis bilateral lower extremities. This document is electronically signed by Turner Carr MD., July 26 2018 09:12:03 PM ET
--- NOTE | 2018-07-26 21:48 | Event Note ---
Date: 07/26/18 [id number]
[2018-07-27 05:29] LABS: Basophils # (Auto) 0.1 K/mm3 (0.0-0.1); Basophils % (Auto) 0.4 % (0.0-1.8); Eosinophils # (Auto) 0.1 K/mm3 (0.0-0.4); Eosinophils % (Auto) 0.4 % (0.0-4.3); Hematocrit 23.8 % (30.3-42.9); Hemoglobin 7.8 gm/dl (10.1-14.3); Lymphocytes # (Auto) 1.9 K/mm3 (1.2-5.4); Lymphocytes % (Auto) 10.5 % (13.4-35.0); Mean Corpuscular HGB Conc 33 % (30-34); Mean Corpuscular Volume 92 fl (79-97); Monocytes # (Auto) 1.4 K/mm3 (0.0-0.8); Monocytes % (Auto) 7.5 % (0.0-7.3); Platelet Count 457 K/mm3 (140-440); Red Blood Count 2.58 M/mm3 (3.65-5.03); Red Cell Distribution Width 14.1 % (13.2-15.2)
[2018-07-27] MEDS: HEPARIN/ 0.45% NACL-25,000 UNIT/500 ML 25,000 UNIT/500 ML BAG IV SCH ×2 (05:59→21:43)
[2018-07-27 07:17] LABS: BUN/Creatinine Ratio 10; Blood Urea Nitrogen 8 mg/dL (7-17); Calcium 9.7 mg/dL (8.4-10.2); Hemolysis Index 0; Iron 17 ug/dL (37-170); Total Iron Binding Capacity 201 mcg/dL (250-450)
--- NOTE | 2018-07-27 07:48 | Progress Note ---
Assessment and Plan A:POD #5 s/p uterine fibroid embolization with gel foam now with dyspnea and suspected pulmonary embolism on VQ scan Symptomatic anemia Leukocytosis, UTI on Rocephin All financial consultant input greatly appreciated P: Continue anticoagulation per recommendations; currently on heparin drip Follow up Nephrology recommendation regarding a CT Angiogram Closely monitor clinical status Subjective - Subjective Date of service: 07/27/18 Principal diagnosis: uterine fibroids with significant bleeding Interval history: Pt reports that her shortness of breath is largely unchanged and she wants to go home. She reports light vaginal spotting since yesterday. Patient reports: voiding normally, ambulating normally Objective - Vital Signs Latest vital signs: Vital Signs Temp Pulse Pulse Resp BP Pulse Ox 07/27/18 05:12 98.4 F 77 16 128/77 97 07/26/18 22:40 121/80 07/26/18 22:00 94 H 16 96 07/26/18 16:44 98.8 F 94 H 16 127/82 96 07/26/18 11:45 98.3 F 85 20 106/64 99 Intake and Output 07/26/18 07/27/18 07/27/18 22:59 06:59 14:59 Intake Total 509.55 1130.45 Balance 509.55 1130.45 Intake: IV 269.55 130.45 HEPARIN/ 0.45% NACL-25, 269.55 130.45 000 UNIT/500 ML 25,000 unit In 500 ml @ 1,350 UNITS/HR 27 mls/hr IV TITR DIANNE Rx#:[id number] Oral 240 1000 Other: Total, Intake Amount 240 1000 # Voids Void 1 # Bowel Movements 0 Weight 95 kg - Exam Breasts: Present: deferred Cardiovascular: Present: Regular rate Lungs: Present: Clear to auscultation Abdomen: Present: soft Extremities: Present: normal - Labs Labs: Abnormal lab results 07/26/18 07/26/18 07/26/18 Range/Units 09:32 12:31 12:31 WBC 18.9 H (4.5-11.0) K/mm3 RBC 2.84 L (3.65-5.03) M/mm3 Hgb 8.6 L 7.8 L (10.1-14.3) gm/dl Hct 26.3 L 23.9 L (30.3-42.9) % Plt Count (140-440) K/mm3 Lymph % (Auto) 7.9 L (13.4-35.0) % [place] % (Auto) 8.2 H (0.0-7.3) % [place] # 1.5 H (0.0-0.8) K/mm3 Baso # 0.2 H (0.0-0.1) K/mm3 Seg Neutrophils % 82.0 H (40.0-70.0) % Seg Neutrophils # 15.5 H (1.8-7.7) K/mm3 INR 1.14 H (0.87-1.13) APTT 23.9 L (24.2-36.6) Sec. Heparin Anti-Xa Level (0.3-0.7) U.I./ml Iron (37-170) ug/dL TIBC (250-450) mcg/dL Folate (7.3-26.0) ng/mL 07/26/18 07/27/18 07/27/18 Range/Units 19:23 04:58 04:58 WBC 18.1 H (4.5-11.0) K/mm3 RBC 2.58 L (3.65-5.03) M/mm3 Hgb 7.8 L (10.1-14.3) gm/dl Hct 23.8 L (30.3-42.9) % Plt Count 457 H (140-440) K/mm3 Lymph % (Auto) 10.5 L (13.4-35.0) % [place] % (Auto) 7.5 H (0.0-7.3) % [place] # 1.4 H (0.0-0.8) K/mm3 Baso # (0.0-0.1) K/mm3 Seg Neutrophils % 81.2 H (40.0-70.0) % Seg Neutrophils # 14.7 H (1.8-7.7) K/mm3 INR (0.87-1.13) APTT (24.2-36.6) Sec. Heparin Anti-Xa Level 0.18 L (0.3-0.7) U.I./ml Iron 17 L (37-170) ug/dL TIBC 201 L (250-450) mcg/dL Folate (7.3-26.0) ng/mL 07/27/18 07/27/18 Range/Units 04:58 04:58 WBC (4.5-11.0) K/mm3 RBC (3.65-5.03) M/mm3 Hgb (10.1-14.3) gm/dl Hct (30.3-42.9) % Plt Count (140-440) K/mm3 Lymph % (Auto) (13.4-35.0) % [place] % (Auto) (0.0-7.3) % [place] # (0.0-0.8) K/mm3 Baso # (0.0-0.1) K/mm3 Seg Neutrophils % (40.0-70.0) % Seg Neutrophils # (1.8-7.7) K/mm3 INR (0.87-1.13) APTT (24.2-36.6) Sec. Heparin Anti-Xa Level 0.25 L (0.3-0.7) U.I./ml Iron (37-170) ug/dL TIBC (250-450) mcg/dL Folate 6.44 L (7.3-26.0) ng/mL
--- NOTE | 2018-07-27 08:36 | Consultation ---
History of Present Illness - Reason for Consult Consult date: 07/27/18 other (Kidney transplant) - History of Present Illness The patient is a 38 YO Female with history significant for Obesity, H ypertension, Anemia, past h/o ESRD s/p donor kidney Transplant (Nov 2017) and Uterine Bleeding S/P UFE who developed respiratory failure. VQ scan showed intermediate to high probability of PE. Patient denies any N, V, D, abd pain, cough, cp, leg swelling, dizziness or syncope. Nephrology consulted for further recommendation to reduce the risk of contrast induced nephropathy. Past History Past Medical History: anemia, hypertension, renal failure (s/p transplant), other (Uterine bleeding, Kidney transplant) Past Surgical History: Other (renal transplant ; left AV access creation and removal) Social history: single Family history: no significant family history Medications and Allergies Allergies Allergy/AdvReac Type Severity Reaction Status Date / Time promethazine HCl Allergy Itching Verified 01/31/17 11:41 [From Phenergan] Home Medications Medication Instructions Recorded Confirmed Last Taken Type Carvedilol [Coreg] 25 mg PO BID 01/31/17 05/07/17 05/06/17 History amLODIPine 10 mg PO DAILY 01/31/17 05/07/17 05/06/17 History oxyCODONE /ACETAMINOPHEN [Percocet 1 tab PO Q6HR PRN #30 tablet 07/24/18 Unknown Rx 5/325] Cellcept 1,000 mg PO BID 07/26/18 07/26/18 Unknown History Ferrous Sulfate [Feosol 325 MG tab] 325 mg PO BID #60 tablet 07/26/18 Unknown Rx Tacrolimus [Prograf] 2 mg PO Q12H 07/26/18 07/26/18 Unknown History predniSONE [Deltasone] 5 mg PO QDAY 07/26/18 07/26/18 Unknown History Active Meds: Active Medications Acetaminophen (Tylenol) 650 mg PO Q4H PRN PRN Reason: Pain, Mild (1-3) Last Admin: 07/22/18 17:05 Dose: 650 mg Documented by: Diphenhydramine HCl (Benadryl) 25 mg IV Q4H PRN PRN Reason: Itching Docusate Sodium (Colace) 100 mg PO BID DIANNE Last Admin: 07/26/18 21:54 Dose: 100 mg Documented by: Famotidine (Pepcid) 20 mg PO BID PENDING SALE TO [facility] Last Admin: 07/26/18 21:55 Dose: 20 mg Documented by: Ferrous Sulfate (Feosol) 325 mg PO BID PENDING SALE TO [facility] Last Admin: 07/26/18 21:55 Dose: 325 mg Documented by: Hydromorphone/Sodium Chloride (Dilaudid Blackjack Pit [employer] 6mg/30ml) 0 mg IV DIRECT PENDING SALE TO [facility]; Protocol Last Admin: 07/22/18 18:03 Dose: 0.3 mg Documented by: Heparin Sodium/Sodium Chloride (Heparin/ 0.45% Nacl-25,000 Unit/500 Ml) 25,000 unit in 500 mls @ 27 mls/hr IV TITR PENDING SALE TO [facility]; Protocol Last Admin: 07/27/18 05:59 Dose: 1,550 units/hr, 31 mls/hr Documented by: Ceftriaxone Sodium (Rocephin/Ns 2 Gm/100 Ml) 2 gm in 100 mls @ 200 mls/hr IV Q24H PENDING SALE TO [facility]; Protocol Last Admin: 07/26/18 20:28 Dose: 200 mls/hr Documented by: Mycophenolate Mofetil (Cellcept) 1,000 mg PO BID PENDING SALE TO [facility] Last Admin: 07/26/18 21:54 Dose: 1,000 mg Documented by: Naloxone HCl (Narcan 0.4 Mg/1 Ml) 0.1 mg IV Q2MIN PRN PRN Reason: Res Rate </= 8 or 02 SAT < 92% Ondansetron HCl (Zofran Odt) 4 mg PO Q8H PRN PRN Reason: Nausea And Vomiting Last Admin: 07/23/18 08:31 Dose: 4 mg Documented by: Ondansetron HCl (Zofran) 4 mg IV Q4H PRN PRN Reason: Nausea Last Admin: 07/23/18 16:07 Dose: 4 mg Documented by: Oxycodone/Acetaminophen (Percocet 5/325) 2 tab PO Q6H PRN PRN Reason: Pain, Moderate (4-6) Last Admin: 07/26/18 21:54 Dose: 2 tab Documented by: Prednisone (Deltasone) 5 mg PO QDAY PENDING SALE TO [facility] Last Admin: 07/26/18 15:38 Dose: 5 mg Documented by: Senna (Senokot) 8.6 mg PO Q12HR PENDING SALE TO [facility] Last Admin: 07/26/18 21:57 Dose: Not Given Documented by: Tacrolimus (Prograf) 2 mg PO Q12HR DIANNE Last Admin: 07/26/18 21:55 Dose: 2 mg Documented by: Review of Systems Constitutional: no weight loss, no weight gain, no fever, no anorexia, no weakness, no poor appetite Breasts: deferred Cardiovascular: shortness of breath, dyspnea on exertion, high blood pressure, no chest pain, no orthopnea, no edema, no syncope, no lightheadedness, no leg edema Respiratory: no cough Gastrointestinal: no abdominal pain, no nausea, no vomiting, no diarrhea, no melena Genitourinary Female: menorrhagia, no dysuria, no hematuria Rectal: no bleeding Integumentary: no rash, no wounds, no jaundice Neurological: no head injury, no paralysis, no weakness, no seizures, no syncope, no aphasia, no change in speech, no change in mentation, no confusion, no memory loss Exam - Vital Signs Vital signs: Vital Signs Temp Pulse Resp BP Pulse Ox 98.7 F 74 18 108/63 100 07/22/18 11:35 07/22/18 11:35 07/22/18 11:35 07/22/18 11:35 07/22/18 11:35 - General Appearance General appearance: well-developed, well-nourished, appears stated age, obese, other (daughter at the bedside, no distress) EENT: ATNC, PERRL, mucous membranes moist, hearing intact, vision intact Neck: Present: neck supple, trachea midline Respiratory: Clear to Ascultation Heart: regular, S1S2, no murmurs Gastrointestinal: Present: normoactive bowel sounds. Absent: tenderness, distended Integumentary: no rash, warm and dry Neurologic: no focal deficit, no asterixis, alert and oriented x3 Musculoskeletal: Present: other (no edema) Results - Lab Results 07/27/18 04:58 07/27/18 04:58 Most recent lab results Calcium 9.7 mg/dL (8.4-10.2) 07/27/18 04:58 Phosphorus 2.60 mg/dL (2.5-4.5) 07/27/18 04:58 Magnesium 1.70 mg/dL (1.7-2.3) 07/27/18 04:58 Assessment and Plan 1. S/p Kidney Transplant: Patient received kidney transplant in Nov 2017. Renal function is normal. Low risk for Contrast induced nephropathy. 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 Started on IV fluids and Mucomyst for prophylaxis. Informed the RN to run the IV fluids for atleast 3 hrs prior to CTA. Monitor renal function. Continue Transplant medications. 2. Respiratory failure: CTA pending to r/o PE. 3. Suspected PE: On Heparin drip. 4. Uterine bleeding: S/p selective uterine artery embolization. 5. Anemia: POA. 6. Hypertension.
--- NOTE | 2018-07-27 08:57 | Progress Note ---
Assessment and Plan Cultures: 07/25/2018 Urine: 10-100k of usual skin michelle Assessment: 38 y/o female with history of ESRD s/p renal transplant 8 months ago on tacrolimus admitted on 07/22/2018 due to dysfunctional uterine bleeding, found with anemia and leukocytosis: 1) Leukocytosis: Continuing, possible reactive due to acute blood loss/anemia +/- UTI. CXR no consolidations. Presumed PE. 2) UTI: partially done UA shows 51 wbc.Urine culture in progress. Renal US shows the renal transplant in the right lower quadrant is within normal limits.No evidence for obstructing stones. There are no obvious findings to suggest pyelonephritis 3) Dysfunctional uterine bleeding s/p right uterine artery embolization on 07/22/2018. Now very light vaginal spotting. 38 Presumed Pulmonary Embolus: VQ scan with concern for PE. On heparin. Recommendations: - follow-up repeat U/A - continue ceftriaxone 2 gm IV qday, D3 of D5 [facility] M: [id number] O:[phone] Subjective Date of service: 07/27/18 Principal diagnosis: uterine fibroids with significant bleeding Interval history: Patient seen and examined. Reports no pain or generalized weakness. Very light vaginal spotting. No SOB , no fevers. Objective - Exam Narrative Exam: General appearance: Awake. Alert. No acute distress. Eyes: anicteric sclerae, moist conjunctivae; no lid-lag; PERRLA HENT: Atraumatic; oropharynx clear with moist mucous membranes and no mucosal u lcerations/no oral thrush; normal hard and soft palate. Normal external ears. Neck: Trachea midline; supple, no thyromegaly or lymphadenopathy Lungs: CTA, with normal respiratory effort and no intercostal retractions CV: RRR no murmur Abdomen: Soft, non-tender; no masses or hepatosplenomegaly Extremities: no edema, cyanosis Skin: +tattoos, no rash, ulcers or subcutaneous nodules Psych: Appropriate affect, alert and oriented to person, place and time. Neuro: alert and oriented x 3. Moving all extremities - Constitutional Vitals: Vital Signs Temp Pulse Resp BP Pulse Ox 98.4 F 77 16 128/77 97 07/27/18 05:12 07/27/18 05:12 07/27/18 05:12 07/27/18 05:12 07/27/18 05:12 Temperature -Last 24 Hours Temperature 98.4 F Temperature 98.8 F Temperature 98.3 F - Labs CBC & Chem 7: 07/27/18 04:58 07/27/18 04:58 Labs: Abnormal lab results 07/26/18 07/26/18 07/26/18 Range/Units 09:32 12:31 12:31 WBC 18.9 H (4.5-11.0) K/mm3 RBC 2.84 L (3.65-5.03) M/mm3 Hgb 8.6 L 7.8 L (10.1-14.3) gm/dl Hct 26.3 L 23.9 L (30.3-42.9) % Plt Count (140-440) K/mm3 Lymph % (Auto) 7.9 L (13.4-35.0) % [place] % (Auto) 8.2 H (0.0-7.3) % [place] # 1.5 H (0.0-0.8) K/mm3 Baso # 0.2 H (0.0-0.1) K/mm3 Seg Neutrophils % 82.0 H (40.0-70.0) % Seg Neutrophils # 15.5 H (1.8-7.7) K/mm3 INR 1.14 H (0.87-1.13) APTT 23.9 L (24.2-36.6) Sec. Heparin Anti-Xa Level (0.3-0.7) U.I./ml Iron (37-170) ug/dL TIBC (250-450) mcg/dL Folate (7.3-26.0) ng/mL 07/26/18 07/27/18 07/27/18 Range/Units 19:23 04:58 04:58 WBC 18.1 H (4.5-11.0) K/mm3 RBC 2.58 L (3.65-5.03) M/mm3 Hgb 7.8 L (10.1-14.3) gm/dl Hct 23.8 L (30.3-42.9) % Plt Count 457 H (140-440) K/mm3 Lymph % (Auto) 10.5 L (13.4-35.0) % [place] % (Auto) 7.5 H (0.0-7.3) % [place] # 1.4 H (0.0-0.8) K/mm3 Baso # (0.0-0.1) K/mm3 Seg Neutrophils % 81.2 H (40.0-70.0) % Seg Neutrophils # 14.7 H (1.8-7.7) K/mm3 INR (0.87-1.13) APTT (24.2-36.6) Sec. Heparin Anti-Xa Level 0.18 L (0.3-0.7) U.I./ml Iron 17 L (37-170) ug/dL TIBC 201 L (250-450) mcg/dL Folate (7.3-26.0) ng/mL 07/27/18 07/27/18 Range/Units 04:58 04:58 WBC (4.5-11.0) K/mm3 RBC (3.65-5.03) M/mm3 Hgb (10.1-14.3) gm/dl Hct (30.3-42.9) % Plt Count (140-440) K/mm3 Lymph % (Auto) (13.4-35.0) % [place] % (Auto) (0.0-7.3) % [place] # (0.0-0.8) K/mm3 Baso # (0.0-0.1) K/mm3 Seg Neutrophils % (40.0-70.0) % Seg Neutrophils # (1.8-7.7) K/mm3 INR (0.87-1.13) APTT (24.2-36.6) Sec. Heparin Anti-Xa Level 0.25 L (0.3-0.7) U.I./ml Iron (37-170) ug/dL TIBC (250-450) mcg/dL Folate 6.44 L (7.3-26.0) ng/mL
[2018-07-27] MEDS: SENOKOT PO SCH ×2 (10:09→21:51)
[2018-07-27] MEDS: PEPCID PO SCH ×2 (10:09→21:33)
[2018-07-27] MEDS: COLACE PO SCH ×3 (10:10→21:51)
[2018-07-27] MEDS: DELTASONE PO SCH (10:10)
[2018-07-27] MEDS: CELLCEPT PO SCH ×2 (10:10→21:32)
[2018-07-27] MEDS: PERCOCET 5/325 PO PRN ×2 (10:10→21:31)
[2018-07-27] MEDS: PROGRAF PO SCH ×2 (10:10→21:32)
[2018-07-27] MEDS: FEOSOL PO SCH ×2 (10:10→21:33)
--- NOTE | 2018-07-27 10:22 | Progress Note ---
Assessment and Plan Assessment and plan: 38 YO Female with Obesity, Uterine Bleeding S/P UFE consult placed to hospitalist medicine by Dr. Weston for respiratory failure. VQ scan was ordered and showed intermediate to high probability of PE. Patient has history of end- stage renal disease with kidney transplant. Nephrology consult placed to get recommendation for CTA chest to confirm the diagnosis of PE. Acute PE - Patient on heparin drip - Its recommended to confirm the diagnosis with CTA chest - Patient has history of kidney transplant, therefore nephrology consulted to determine whether safe to do CT Angio chest Anemia, likely from chronic blood loss from Uterine Bleeding - Continue to monitor H&H, transfuse as needed History of kidney transplant - Continue CellCept, prednisone and Prograf - Consulted nephrology DVT prophylaxis: on heparin drip History Interval history: Feels better Weakness improved Hospitalist Physical - Physical exam Narrative exam: Gen: Not in acute distress, lying in bed HEENT: Normocephalic, atraumatic Neck: supple, no JVD Heart: S1 and S2 reg, no murmurs, rubs or gallop Lungs: Clear, no crackles, no wheeze Abd: soft, non tender, non distended, normal BS Ext: No edema, no clubbing, no cyanosis, Neuro: Awake,alert, oriented x 3, moves all ext, non focal Psych:Normal mood - Constitutional Vitals: Temp Pulse Resp BP Pulse Ox 98.4 F 77 16 128/77 97 07/27/18 05:12 07/27/18 05:12 07/27/18 05:12 07/27/18 05:12 07/27/18 05:12 General appearance: Present: no acute distress Results - Labs CBC & Chem 7: 07/27/18 04:58 07/27/18 04:58 Labs: Laboratory Last Values WBC 18.1 K/mm3 (4.5-11.0) H 07/27/18 04:58 RBC 2.58 M/mm3 (3.65-5.03) L 07/27/18 04:58 Hgb 7.8 gm/dl (10.1-14.3) L 07/27/18 04:58 Hct 23.8 % (30.3-42.9) L 07/27/18 04:58 MCV 92 fl (79-97) 07/27/18 04:58 MCH 30 pg (28-32) 07/27/18 04:58 MCHC 33 % (30-34) 07/27/18 04:58 RDW 14.1 % (13.2-15.2) 07/27/18 04:58 Plt Count 457 K/mm3 (140-440) H 07/27/18 04:58 Lymph % (Auto) 10.5 % (13.4-35.0) L 07/27/18 04:58 [place] % (Auto) 7.5 % (0.0-7.3) H 07/27/18 04:58 Eos % (Auto) 0.4 % (0.0-4.3) 07/27/18 04:58 Baso % (Auto) 0.4 % (0.0-1.8) 07/27/18 04:58 Lymph # 1.9 K/mm3 (1.2-5.4) 07/27/18 04:58 [place] # 1.4 K/mm3 (0.0-0.8) H 07/27/18 04:58 Eos # 0.1 K/mm3 (0.0-0.4) 07/27/18 04:58 Baso # 0.1 K/mm3 (0.0-0.1) 07/27/18 04:58 Add Manual Diff Complete 07/22/18 13:06 Total Counted 100 07/22/18 13:06 Seg Neutrophils % 81.2 % (40.0-70.0) H 07/27/18 04:58 Seg Neuts % (Manual) 94.0 % (40.0-70.0) H 07/22/18 13:06 0 % 07/22/18 13:06 4.0 % (13.4-35.0) L 07/22/18 13:06 Reactive Lymphs % (Man) 0 % 07/22/18 13:06 2.0 % (0.0-7.3) 07/22/18 13:06 0 % (0.0-4.3) 07/22/18 13:06 0 % (0.0-1.8) 07/22/18 13:06 0 % 07/22/18 13:06 0 % 07/22/18 13:06 0 % 07/22/18 13:06 0 % 07/22/18 13:06 Nucleated RBC % Not Reportable 07/22/18 13:06 Seg Neutrophils # 14.7 K/mm3 (1.8-7.7) H 07/27/18 04:58 Seg Neutrophils # Man 19.1 K/mm3 (1.8-7.7) H 07/22/18 13:06 Band Neutrophils # 0.0 K/mm3 07/22/18 13:06 0.8 K/mm3 (1.2-5.4) L 07/22/18 13:06 Abs React Lymphs (Man) 0.0 K/mm3 07/22/18 13:06 0.4 K/mm3 (0.0-0.8) 07/22/18 13:06 0.0 K/mm3 (0.0-0.4) 07/22/18 13:06 0.0 K/mm3 (0.0-0.1) 07/22/18 13:06 0.0 K/mm3 07/22/18 13:06 0.0 K/mm3 07/22/18 13:06 0.0 K/mm3 07/22/18 13:06 Blast Cells # 0.0 K/mm3 07/22/18 13:06 WBC Morphology Not Reportable 07/22/18 13:06 Hypersegmented Neuts Not Reportable 07/22/18 13:06 Hyposegmented Neuts Not Reportable 07/22/18 13:06 Hypogranular Neuts Not Reportable 07/22/18 13:06 Not Reportable 07/22/18 13:06 Not Reportable 07/22/18 13:06 Not Reportable 07/22/18 13:06 Not Reportable 07/22/18 13:06 Not Reportable 07/22/18 13:06 Not Reportable 07/22/18 13:06 Consistent w auto 07/22/18 13:06 Not Reportable 07/22/18 13:06 Plt Clumps, EDTA Not Reportable 07/22/18 13:06 Not Reportable 07/22/18 13:06 Not Reportable 07/22/18 13:06 Not Reportable 07/22/18 13:06 Plt Morphology Comment Not Reportable 07/22/18 13:06 RBC Morphology Not Reportable 07/22/18 13:06 Dimorphic RBCs Not Reportable 07/22/18 13:06 Not Reportable 07/22/18 13:06 Not Reportable 07/22/18 13:06 Not Reportable 07/22/18 13:06 Few 07/22/18 13:06 Not Reportable 07/22/18 13:06 Not Reportable 07/22/18 13:06 Not Reportable 07/22/18 13:06 Not Reportable 07/22/18 13:06 Not Reportable 07/22/18 13:06 Not Reportable 07/22/18 13:06 Not Reportable 07/22/18 13:06 Not Reportable 07/22/18 13:06 Not Reportable 07/22/18 13:06 Not Reportable 07/22/18 13:06 Not Reportable 07/22/18 13:06 Not Reportable 07/22/18 13:06 Not Reportable 07/22/18 13:06 Not Reportable 07/22/18 13:06 Not Reportable 07/22/18 13:06 Acanthocytes (Spur) Not Reportable 07/22/18 13:06 Rouleaux Not Reportable 07/22/18 13:06 Not Reportable 07/22/18 13:06 Not Reportable 07/22/18 13:06 Not Reportable 07/22/18 13:06 Not Reportable 07/22/18 13:06 Hem Pathologist Commnt No 07/22/18 13:06 PT 14.3 Sec. (12.2-14.9) 07/26/18 12:31 INR 1.14 (0.87-1.13) H 07/26/18 12:31 APTT 23.9 Sec. (24.2-36.6) L 07/26/18 12:31 Heparin Anti-Xa Level 0.25 U.I./ml (0.3-0.7) L 07/27/18 04:58 Sodium 138 mmol/L (137-145) 07/27/18 04:58 Potassium 3.6 mmol/L (3.6-5.0) 07/27/18 04:58 Chloride 101.3 mmol/L (98-107) 07/27/18 04:58 Carbon Dioxide 26 mmol/L (22-30) 07/27/18 04:58 14 mmol/L 07/27/18 04:58 BUN 8 mg/dL (7-17) 07/27/18 04:58 0.8 mg/dL (0.7-1.2) 07/27/18 04:58 Estimated GFR > 60 ml/min 07/27/18 04:58 10 % 07/27/18 04:58 Glucose 99 mg/dL (65-100) 07/27/18 04:58 Calcium 9.7 mg/dL (8.4-10.2) 07/27/18 04:58 Phosphorus 2.60 mg/dL (2.5-4.5) 07/27/18 04:58 Magnesium 1.70 mg/dL (1.7-2.3) 07/27/18 04:58 Iron 17 ug/dL (37-170) L 07/27/18 04:58 TIBC 201 mcg/dL (250-450) L 07/27/18 04:58 179.7 ng/mL (13.0-400.0) 07/27/18 04:58 0.30 mg/dL (0.1-1.2) 07/22/18 13:06 AST 9 units/L (5-40) 07/22/18 13:06 ALT 6 units/L (7-56) L 07/22/18 13:06 114 units/L (35-129) 07/22/18 13:06 5.7 g/dL (6.3-8.2) L 07/22/18 13:06 3.2 g/dL (3.9-5) L 07/22/18 13:06 1.3 % 07/22/18 13:06 Vitamin B12 533.1 pg/mL (211-911) 07/27/18 04:58 6.44 ng/mL (7.3-26.0) L 07/27/18 04:58 51.0 /HPF (0.0-6.0) H 07/25/18 10:35 8.0 /HPF (0.0-6.0) 07/25/18 10:35 U Epithel Cells (Auto) 11.0 /HPF (0-13.0) 07/25/18 10:35 2+ /HPF (Negative) 07/25/18 10:35 2+ /HPF 07/25/18 10:35 Blood Type O POSITIVE 07/22/18 13:06 Antibody Screen Negative 07/22/18 13:06 Active Medications - Current Medications Current Medications: Generic Name Dose Route Start Last Admin Trade Name Freq PRN Reason Stop Dose Admin Acetaminophen 650 mg 07/22/18 12:30 07/22/18 17:05 Tylenol PO 650 mg Q4H PRN Administration Pain, Mild (1-3) Diphenhydramine HCl 25 mg 07/22/18 16:27 Benadryl IV Q4H PRN Itching Docusate Sodium 100 mg 07/22/18 22:00 07/27/18 10:10 Colace PO Not Given BID DIANNE Famotidine 20 mg 07/24/18 22:00 07/27/18 10:09 Pepcid PO 20 mg BID DIANNE Administration Ferrous Sulfate 325 mg 07/24/18 22:00 07/27/18 10:10 Feosol PO 325 mg BID DIANNE Administration Hydromorphone/Sodium Chloride 0 mg 07/22/18 18:00 07/22/18 18:03 Dilaudid Field Manager 6mg/30ml IV 0.3 mg DIRECT DIANNE Administration Protocol Heparin Sodium/Sodium Chloride 25,000 unit in 500 mls @ 27 mls/hr 07/26/18 12:00 07/27/18 05:59 Heparin/ 0.45% Nacl-25,000 Unit/500 Ml IV 1,550 units/hr TITR DIANNE 31 mls/hr Administration Protocol 1,350 UNITS/HR Ceftriaxone Sodium 2 gm in 100 mls @ 200 mls/hr 07/26/18 20:00 07/26/18 20:28 Rocephin/Ns 2 Gm/100 Ml IV 200 mls/hr Q24H DIANNE Administration Protocol Mycophenolate Mofetil 1,000 mg 07/26/18 14:30 07/27/18 10:10 Cellcept PO 1,000 mg BID DIANNE Administration Naloxone HCl 0.1 mg 07/22/18 16:27 Narcan 0.4 Mg/1 Ml IV Q2MIN PRN Res Rate </= 8 or 02 SAT < 92% Ondansetron HCl 4 mg 07/22/18 12:30 07/23/18 08:31 Zofran Odt PO 4 mg Q8H PRN Administration Nausea And Vomiting Ondansetron HCl 4 mg 07/22/18 16:27 07/23/18 16:07 Zofran IV 4 mg Q4H PRN Administration Nausea Oxycodone/Acetaminophen 2 tab 07/26/18 00:01 07/27/18 10:10 Percocet 5/325 PO 2 tab Q6H PRN Administration Pain, Moderate (4-6) Prednisone 5 mg 07/26/18 14:00 07/27/18 10:10 Deltasone PO 5 mg QDAY DIANNE Administration Senna 8.6 mg 07/22/18 17:00 07/27/18 10:09 Senokot PO Not Given Q12HR DIANNE Tacrolimus 2 mg 07/24/18 22:00 07/27/18 10:10 Prograf PO 2 mg Q12HR DIANNE Administration
--- NOTE | 2018-07-27 12:54 | Hem/Onc Progress Note ---
Assessment and Plan 1. Pulmonary embolism based on V/Q scan. 2. History of renal transplant, right lower quadrant, done 11/2017. 3. The patient on mycophenolate, prednisone, and tacrolimus. 4. Anemia. We will investigate. 5. History of dysfunctional uterine bleeding - DUB, status post foam embolization. 6. History of hypertension. 7. Leukocytosis. 8. V/Q scan shows high probability pulmonary embolism, right upper lobe. 9. History of fibroid uterus. I will follow the patient during inpatient stay and then in the clinic setting. I discussed with the patient regarding heparin, Eliquis, Xarelto and Coumadin. pt was on hormonal supplements for her DUB - this may have a role - Patient Problems (1) Pulmonary embolism Current Visit: Yes Status: Acute Subjective Date of service: 07/27/18 Principal diagnosis: PE Interval history: less SOB Objective - Constitutional Vitals: Last Vital Signs Temp 98.4 F 07/27/18 05:12 Pulse 77 07/27/18 05:12 Resp 16 07/27/18 05:12 BP 128/77 07/27/18 05:12 Pulse Ox 97 07/27/18 05:12 Pain Intensity (0-10): denies any pain General appearance: no acute distress Performance status: 2- selfcare, ambulatory - EENT Eyes: EOM intact ENT: hearing intact Lymph node exam: negative cervical - Neck Neck: normal ROM - Respiratory Respiratory effort: Positive: normal Respiratory: bilateral: CTA - Cardiovascular Heart Sounds: Present: S1 & S2 Extremities: No edema - Gastrointestinal General gastrointestinal: Present: soft, non-tender Rectal Exam: deferred - Genitourinary Female genitourinary: Present: deferred - Integumentary Integumentary: warm - Musculoskeletal Musculoskeletal: strength equal bilaterally - Neurologic Neurologic: moves all extremities - Labs Lab Results: Laboratory Results - last 24 hr 07/26/18 07/26/18 07/26/18 12:31 12:31 19:23 WBC RBC Hgb 7.8 L Hct 23.9 L MCV MCH MCHC RDW Plt Count 374 Lymph % (Auto) [place]ard % (Auto) Eos % (Auto) Baso % (Auto) Lymph # Millard # Eos # Baso # Seg Neutrophils % Seg Neutrophils # PT 14.3 INR 1.14 H APTT 23.9 L Heparin Anti-Xa Level 0.18 L Sodium Potassium Chloride Carbon Dioxide Anion Gap BUN Creatinine Estimated GFR BUN/Creatinine Ratio Glucose Calcium Phosphorus Magnesium Iron TIBC Ferritin Vitamin B12 Folate 07/27/18 07/27/18 07/27/18 04:58 04:58 04:58 WBC 18.1 H RBC 2.58 L Hgb 7.8 L Hct 23.8 L MCV 92 MCH 30 MCHC 33 RDW 14.1 Plt Count 457 H Lymph % (Auto) 10.5 L [place] % (Auto) 7.5 H Eos % (Auto) 0.4 Baso % (Auto) 0.4 Lymph # 1.9 Millard # 1.4 H Eos # 0.1 Baso # 0.1 Seg Neutrophils % 81.2 H Seg Neutrophils # 14.7 H PT INR APTT Heparin Anti-Xa Level Sodium 138 Potassium 3.6 Chloride 101.3 Carbon Dioxide 26 Anion Gap 14 BUN 8 Creatinine 0.8 Estimated GFR > 60 BUN/Creatinine Ratio 10 Glucose 99 Calcium 9.7 Phosphorus 2.60 Magnesium 1.70 Iron 17 L TIBC 201 L Ferritin 179.7 Vitamin B12 Folate 07/27/18 07/27/18 07/27/18 04:58 04:58 04:58 WBC RBC Hgb Hct MCV MCH MCHC RDW Plt Count Lymph % (Auto) [place] % (Auto) Eos % (Auto) Baso % (Auto) Lymph # Millard # Eos # Baso # Seg Neutrophils % Seg Neutrophils # PT INR APTT Heparin Anti-Xa Level 0.25 L Sodium Potassium Chloride Carbon Dioxide Anion Gap BUN Creatinine Estimated GFR BUN/Creatinine Ratio Glucose Calcium Phosphorus Magnesium Iron TIBC Ferritin Vitamin B12 533.1 Folate 6.44 L Medications & Allergies - Medications Allergies/Adverse Reactions: Allergies promethazine HCl [From Phenergan] Allergy (Verified 01/31/17 11:41) Itching Home Medications: Home Medications Medication Instructions Recorded Confirmed Last Taken Type Carvedilol [Coreg] 25 mg PO BID 01/31/17 05/07/17 05/06/17 History amLODIPine 10 mg PO DAILY 01/31/17 05/07/17 05/06/17 History oxyCODONE /ACETAMINOPHEN [Percocet 1 tab PO Q6HR PRN #30 tablet 07/24/18 Unknown Rx 5/325] Cellcept 1,000 mg PO BID 07/26/18 07/26/18 Unknown History Ferrous Sulfate [Feosol 325 MG tab] 325 mg PO BID #60 tablet 07/26/18 Unknown Rx Tacrolimus [Prograf] 2 mg PO Q12H 07/26/18 07/26/18 Unknown History predniSONE [Deltasone] 5 mg PO QDAY 07/26/18 07/26/18 Unknown History Active Medications: Generic Name Dose Route Start Last Admin Trade Name Freq PRN Reason Stop Dose Admin Acetaminophen 650 mg 07/22/18 12:30 07/22/18 17:05 Tylenol PO 650 mg Q4H PRN Administration Pain, Mild (1-3) Diphenhydramine HCl 25 mg 07/22/18 16:27 Benadryl IV Q4H PRN Itching Docusate Sodium 100 mg 07/22/18 22:00 07/27/18 10:10 Colace PO Not Given BID DIANNE Famotidine 20 mg 07/24/18 22:00 07/27/18 10:09 Pepcid PO 20 mg BID DIANNE Administration Ferrous Sulfate 325 mg 07/24/18 22:00 07/27/18 10:10 Feosol PO 325 mg BID DIANNE Administration Folic Acid 1 mg 07/27/18 12:00 Folvite PO QDAY DIANNE Hydromorphone/Sodium Chloride 0 mg 07/22/18 18:00 07/22/18 18:03 Dilaudid Basketball Player 6mg/30ml IV 0.3 mg DIRECT DIANNE Administration Protocol Heparin Sodium/Sodium Chloride 25,000 unit in 500 mls @ 27 mls/hr 07/26/18 12:00 07/27/18 05:59 Heparin/ 0.45% Nacl-25,000 Unit/500 Ml IV 1,550 units/hr TITR DIANNE 31 mls/hr Administration Protocol 1,350 UNITS/HR Ceftriaxone Sodium 2 gm in 100 mls @ 200 mls/hr 07/26/18 20:00 07/26/18 20:28 Rocephin/Ns 2 Gm/100 Ml IV 200 mls/hr Q24H DIANNE Administration Protocol Ferric Sodium Gluconate 110 mls @ 100 mls/hr 07/27/18 14:00 Complex 125 mg/ Sodium IV 07/27/18 15:05 Chloride ONCE ONE Mycophenolate Mofetil 1,000 mg 07/26/18 14:30 07/27/18 10:10 Cellcept PO 1,000 mg BID DIANNE Administration Naloxone HCl 0.1 mg 07/22/18 16:27 Narcan 0.4 Mg/1 Ml IV Q2MIN PRN Res Rate </= 8 or 02 SAT < 92% Ondansetron HCl 4 mg 07/22/18 12:30 07/23/18 08:31 Zofran Odt PO 4 mg Q8H PRN Administration Nausea And Vomiting Ondansetron HCl 4 mg 07/22/18 16:27 07/23/18 16:07 Zofran IV 4 mg Q4H PRN Administration Nausea Oxycodone/Acetaminophen 2 tab 07/26/18 00:01 07/27/18 10:10 Percocet 5/325 PO 2 tab Q6H PRN Administration Pain, Moderate (4-6) Prednisone 5 mg 07/26/18 14:00 07/27/18 10:10 Deltasone PO 5 mg QDAY DIANNE Administration Senna 8.6 mg 07/22/18 17:00 07/27/18 10:09 Senokot PO Not Given Q12HR DIANNE Tacrolimus 2 mg 07/24/18 22:00 07/27/18 10:10 Prograf PO 2 mg Q12HR DIANNE Administration
[2018-07-27] MEDS ORDERED: FERRLECIT 125 MG in NACL 0.9% 100 ML IV ONE (14:00)
[2018-07-27] MEDS ORDERED: SODIUM BICARBONATE 150 MEQ in STERILE WATER 1,000 ML IV SCH (17:00)
[2018-07-27] MEDS: FOLVITE PO SCH (18:11)
[2018-07-27] MEDS: MUCOMYST ORAL PO SCH ×2 (18:54→21:34)
--- NOTE | 2018-07-27 20:21 | Consultation ---
REFERRING PHYSICIAN: Dr. Root REASON FOR CONSULTATION: PE. HISTORY OF PRESENT ILLNESS: I saw the patient, a 38-year-old female with a history of renal disease, renal transplant, on tacrolimus, was admitted on 07/22/2018 because of dysfunctional bleeding. She states that after the transplant in November, she has been having bleeding, slight amount but persistently. She saw her DISTRIBUTOR CLEANER but she is not keen for hysterectomy. There was a discussion about bead placement and foam placement. The patient agreed to a foam-based treatment and right uterine artery embolization was done on 07/22/2018. She was having tiredness and she was also having shortness of breath. Because of transplant, CTA was not done, but a V/Q scan was done. This showed high probability of PE. She was also found to be anemic. There was a large defect in the right upper lobe. DVT study was negative. Hemoglobin was found to be 7.8 and there was a discussion of intervention for this. I have been asked to evaluate the patient in view of anemia and PE and heavy cycles. After the uterine foam embolization procedure, the patient states the bleeding has decreased. At this time, no headache, no visual disturbances. No ear discharge. Chest pain improved, shortness of breath better. No abdominal pain, at this time, intermittent abdominal pain present. History of uterine bleeding present. No leg swelling. No calf tenderness. No seizure or syncope. No loss of consciousness. PAST SURGICAL HISTORY: Includes hypertension and renal disease. PAST SURGICAL HISTORY: Transplant, 11/2017. SOCIAL HISTORY: Single. ALLERGIES: PHENERGAN. HOME MEDICATIONS: Coreg, clonidine, amlodipine. FAMILY HISTORY: Not contributory. PHYSICAL EXAMINATION: VITAL SIGNS: Temperature 98, pulse 94, respirations 16, BP 127/82. HEENT: Pallor present. No icterus. NECK: No neck lymph nodes. HEART: S1, S2. LUNGS: Clear to auscultation. ABDOMEN: Soft, no rebound. EXTREMITIES: No calf tenderness. NEUROLOGIC: Alert, awake, oriented. LABORATORY DATA: White cells 18, hemoglobin 8.6, MCV 93, platelet 352. Potassium 3.7, creatinine 0.9, bilirubin 0.3, calcium 9.4. ASSESSMENT: 1. Pulmonary embolism based on V/Q scan. 2. History of renal transplant, right lower quadrant, done 11/2017. 3. The patient on mycophenolate, prednisone, and tacrolimus. 4. Anemia. We will investigate. 5. History of dysfunctional uterine bleeding, status post foam embolization. 6. History of hypertension. 7. Leukocytosis. 8. V/Q scan shows high probability pulmonary embolism, right upper lobe. 9. History of fibroid uterus. I will follow the patient during inpatient stay and then in the clinic setting. I discussed with the patient regarding heparin, Eliquis, Xarelto and Coumadin. JOB# [id number] NM/NTS
[2018-07-27 20:23] LABS: Bilirubin,Urine NEG (Negative); Blood,Urine MOD (Negative); Color,Urine Yellow (Yellow); Protein,Urine <15 mg/dL mg/dL (Negative); Urobilinogen,Urine < 2.0 mg/dL (<2.0)
[2018-07-27] MEDS: ROCEPHIN/NS 2 GM/100 ML 2 GM/100 ML BAG IV SCH (21:35)
--- NOTE | 2018-07-28 07:36 | Hem/Onc Progress Note ---
Assessment and Plan 1. Pulmonary embolism based on V/Q scan. 2. History of renal transplant, right lower quadrant, done 11/2017. 3. The patient on mycophenolate, prednisone, and tacrolimus. 4. Anemia. We will investigate. 5. History of dysfunctional uterine bleeding - DUB, status post foam embolization. 6. History of hypertension. 7. Leukocytosis. 8. V/Q scan shows high probability pulmonary embolism, right upper lobe. 9. History of fibroid uterus. I will follow the patient during inpatient stay and then in the clinic setting. I discussed with the patient regarding heparin, Eliquis, Xarelto and Coumadin. pt was on hormonal supplements for her DUB - this may have a role in her PE however later CTA shows no PE - Patient Problems (1) Pulmonary embolism Status: Acute Subjective Date of service: 07/28/18 Principal diagnosis: anemia - PE Interval history: CTA planned Objective - Exam Narrative Exam: Pain none General appearance no acute distress Performance status selfcare ambulatory Eyes EOM intact ENT hearing intact/ Clear oral mucosa LNs cervical not palpable Neck normal ROM Respiratory Normal Breath sounds - CTA CVS S1 S2 + Extremities normal temperature/ no edema General GI Soft non tender Rectal deferred Female - deferred Skin warm Musculoskeletal strength equal bilaterally Neurologically no Focal deficit/ moves all extremities - Constitutional Vitals: Last Vital Signs Temp 98.1 F 07/28/18 04:55 Pulse 79 07/28/18 04:55 Resp 16 07/28/18 04:55 BP 158/96 07/28/18 04:55 Pulse Ox 100 07/28/18 04:55 - Labs Lab Results: Laboratory Results - last 24 hr 07/27/18 07/27/18 07/27/18 04:58 04:58 13:19 Heparin Anti-Xa Level 0.24 L Vitamin B12 533.1 Folate 6.44 L Urine Color Urine Turbidity Urine pH Ur Specific [place] Urine Protein Urine Glucose (UA) Urine Ketones Urine Blood Urine Nitrite Urine Bilirubin Urine Urobilinogen Ur Leukocyte Esterase Urine WBC (Auto) Urine RBC (Auto) U Epithel Cells (Auto) 07/27/18 07/27/18 19:40 20:00 Heparin Anti-Xa Level 0.33 Vitamin B12 Folate Urine Color Yellow Urine Turbidity Clear Urine pH 8.0 H Ur Specific [place] 1.013 Urine Protein <15 mg/dl Urine Glucose (UA) Neg Urine Ketones Neg Urine Blood Mod Urine Nitrite Neg Urine Bilirubin Neg Urine Urobilinogen < 2.0 Ur Leukocyte Esterase Sm Urine WBC (Auto) 5.0 Urine RBC (Auto) 1.0 U Epithel Cells (Auto) 3.0 Medications & Allergies - Medications Allergies/Adverse Reactions: Allergies promethazine HCl [From Phenergan] Allergy (Verified 01/31/17 11:41) Itching Home Medications: Home Medications Medication Instructions Recorded Confirmed Last Taken Type Carvedilol [Coreg] 25 mg PO BID 01/31/17 07/29/18 05/06/17 History amLODIPine 10 mg PO DAILY 01/31/17 07/29/18 05/06/17 History oxyCODONE /ACETAMINOPHEN [Percocet 1 tab PO Q6HR PRN #30 tablet 07/24/18 Unknown Rx 5/325] Cellcept 1,000 mg PO BID 07/26/18 07/26/18 Unknown History Ferrous Sulfate [Feosol 325 MG tab] 325 mg PO BID #60 tablet 07/26/18 Unknown Rx Tacrolimus [Prograf] 2 mg PO Q12H 07/26/18 07/26/18 Unknown History predniSONE [Deltasone] 5 mg PO QDAY 07/26/18 07/26/18 Unknown History Active Medications: Generic Name Dose Route Start Last Admin Trade Name Freq PRN Reason Stop Dose Admin Acetaminophen 650 mg 07/22/18 12:30 07/22/18 17:05 Tylenol PO 650 mg Q4H PRN Administration Pain, Mild (1-3) Acetylcysteine 600 mg 07/27/18 18:00 07/27/18 21:34 Mucomyst Oral PO 600 mg Q12HR DIANNE Administration Diphenhydramine HCl 25 mg 07/22/18 16:27 Benadryl IV Q4H PRN Itching Docusate Sodium 100 mg 07/22/18 22:00 07/27/18 21:51 Colace PO Not Given BID DIANNE Famotidine 20 mg 07/24/18 22:00 07/27/18 21:33 Pepcid PO 20 mg BID DIANNE Administration Ferrous Sulfate 325 mg 07/24/18 22:00 07/27/18 21:33 Feosol PO 325 mg BID DIANNE Administration Folic Acid 1 mg 07/27/18 12:00 07/27/18 18:11 Folvite PO 1 mg QDAY DIANNE Administration Hydromorphone/Sodium Chloride 0 mg 07/22/18 18:00 07/22/18 18:03 Dilaudid I[employer] 6mg/30ml IV 0.3 mg DIRECT DIANNE Administration Protocol Heparin Sodium/Sodium Chloride 25,000 unit in 500 mls @ 27 mls/hr 07/26/18 12:00 07/27/18 21:43 Heparin/ 0.45% Nacl-25,000 Unit/500 Ml IV 1,650 units/hr TITR DIANNE 33 mls/hr Administration Protocol 1,350 UNITS/HR Ceftriaxone Sodium 2 gm in 100 mls @ 200 mls/hr 07/26/18 20:00 07/27/18 21:35 Rocephin/Ns 2 Gm/100 Ml IV 200 mls/hr Q24H DIANNE Administration Protocol Sodium Bicarbonate 150 meq/ 1,150 mls @ 75 mls/hr 07/27/18 17:00 Sterile Water IV DIRECT DIANNE Mycophenolate Mofetil 1,000 mg 07/26/18 14:30 07/27/18 21:32 Cellcept PO 1,000 mg BID DIANNE Administration Naloxone HCl 0.1 mg 07/22/18 16:27 Narcan 0.4 Mg/1 Ml IV Q2MIN PRN Res Rate </= 8 or 02 SAT < 92% Ondansetron HCl 4 mg 07/22/18 12:30 07/23/18 08:31 Zofran Odt PO 4 mg Q8H PRN Administration Nausea And Vomiting Ondansetron HCl 4 mg 07/22/18 16:27 07/23/18 16:07 Zofran IV 4 mg Q4H PRN Administration Nausea Oxycodone/Acetaminophen 2 tab 07/26/18 00:01 07/27/18 21:31 Percocet 5/325 PO 2 tab Q6H PRN Administration Pain, Moderate (4-6) Prednisone 5 mg 07/26/18 14:00 07/27/18 10:10 Deltasone PO 5 mg QDAY DIANNE Administration Senna 8.6 mg 07/22/18 17:00 07/27/18 21:51 Senokot PO Not Given Q12HR DIANNE Tacrolimus 2 mg 07/24/18 22:00 07/27/18 21:32 Prograf PO 2 mg Q12HR DIANNE Administration
--- NOTE | 2018-07-28 07:51 | Progress Note ---
Assessment and Plan Cultures: 07/25/2018 Urine: 10-100k of usual skin michelle Assessment: 38 y/o female with history of ESRD s/p renal transplant 8 months ago on tacrolimus admitted on 07/22/2018 due to dysfunctional uterine bleeding, found with anemia and leukocytosis: 1) Leukocytosis: Trending down, 15K today, possible reactive due to acute blood loss/anemia +/- UTI. CXR no consolidations. Presumed PE. 2) UTI: partially done UA shows 51 wbc. Repeat u/s w/o pyuria. small LE. Renal US shows the renal transplant in the right lower quadrant is within normal limits.No evidence for obstructing stones. There are no obvious findings to suggest pyelonephritis 3) Dysfunctional uterine bleeding s/p right uterine artery embolization on 07/22/2018. Now very light vaginal spotting. 4) Presumed Pulmonary Embolus: VQ scan with concern for PE. On heparin. 5) [place] vaginitis: Fluconazole ordered, times 1 dose. Recommendations: - continue ceftriaxone 2 gm IV qday, D4 of D5 -Fluconazole 150mg PO times 1 dose -CBC ordered for tomorrow [facility] M: [id number] O:[phone] Subjective Date of service: 07/28/18 Principal diagnosis: PE Interval history: Patient seen and examined. Reports no pain or generalized weakness. continued light vaginal spotting. No SOB , no fevers. Objective - Exam Narrative Exam: General appearance: Awake. Alert. No acute distress. Eyes: anicteric sclerae, moist conjunctivae; no lid-lag; PERRLA HENT: Atraumatic; oropharynx clear with moist mucous membranes and no mucosal ulcerations/no oral thrush; normal hard and soft palate. Normal external ears. Neck: Trachea midline; supple, no thyromegaly or lymphadenopathy Lungs: CTA, with normal respiratory effort and no intercostal retractions CV: RRR no murmur Abdomen: Soft, non-tender; no masses or hepatosplenomegaly Extremities: no edema, cyanosis Skin: +tattoos, no rash, ulcers or subcutaneous nodules Psych: Appropriate affect, alert and oriented to person, place and time. Neuro: alert and oriented x 3. Moving all extremities - Constitutional Vitals: Vital Signs Temp Pulse Resp BP Pulse Ox 98.1 F 79 16 158/96 100 07/28/18 04:55 07/28/18 04:55 07/28/18 04:55 07/28/18 04:55 07/28/18 04:55 Temperature -Last 24 Hours Temperature 98.1 F Temperature 98.8 F Temperature 98.8 F Temperature 98.5 F - Labs CBC & Chem 7: 07/28/18 09:25 07/28/18 09:25 Labs: Abnormal lab results 07/27/18 07/27/18 Range/Units 13:19 19:40 Heparin Anti-Xa Level 0.24 L (0.3-0.7) U.I./ml Urine pH 8.0 H (5.0-7.0)
[2018-07-28] MEDS: PERCOCET 5/325 PO PRN ×2 (08:03→18:03)
[2018-07-28 10:07] LABS: BUN/Creatinine Ratio 13; Blood Urea Nitrogen 10 mg/dL (7-17); Calcium 9.7 mg/dL (8.4-10.2); Hemolysis Index 5
[2018-07-28 10:19] LABS: Hematocrit 24.3 % (30.3-42.9); Hemoglobin 7.3 gm/dl (10.1-14.3); Mean Corpuscular HGB Conc 30 % (30-34); Mean Corpuscular Volume 99 fl (79-97); Platelet Count 568 K/mm3 (140-440); Red Blood Count 2.45 M/mm3 (3.65-5.03); Red Cell Distribution Width 15.7 % (13.2-15.2)
[2018-07-28] MEDS: PEPCID PO SCH ×2 (11:00→22:17)
[2018-07-28] MEDS: PROGRAF PO SCH ×2 (11:04→22:14)
[2018-07-28] MEDS: COLACE PO SCH ×2 (11:05→22:13)
[2018-07-28] MEDS: DELTASONE PO SCH (11:05)
[2018-07-28] MEDS: FEOSOL PO SCH ×2 (11:05→22:18)
[2018-07-28] MEDS: FOLVITE PO SCH (11:05)
[2018-07-28] MEDS: SENOKOT PO SCH ×2 (11:05→22:13)
[2018-07-28] MEDS: CELLCEPT PO SCH ×2 (11:06→22:14)
[2018-07-28] MEDS: MUCOMYST ORAL PO SCH ×2 (11:18→22:13)
--- NOTE | 2018-07-28 12:12 | Progress Note ---
Assessment and Plan Assessment and plan: 38 YO Female with Obesity, Uterine Bleeding S/P UFE consult placed to hospitalist medicine by Dr. Weston for respiratory failure. VQ scan was ordered and showed intermediate to high probability of PE. Patient has history of end- stage renal disease with kidney transplant. Nephrology consult placed to get recommendation for CTA chest to confirm the diagnosis of PE. Acute PE - Patient on heparin drip - Its recommended to confirm the diagnosis with CTA chest - Patient has history of kidney transplant, therefore nephrology consulted to determine whether safe to do CT Angio chest -nephrology ok doing CT Angio after pre-med - For Ct Angio today Anemia, likely from chronic blood loss from Uterine Bleeding - Continue to monitor H&H, transfuse as needed History of kidney transplant - Continue CellCept, prednisone and Prograf - Nephrology following DVT prophylaxis: on heparin drip History Interval history: Feels better Weakness improved For CT chest today Hospitalist Physical - Physical exam Narrative exam: Gen: Not in acute distress, lying in bed HEENT: Normocephalic, atraumatic Neck: supple, no JVD Heart: S1 and S2 reg, no murmurs, rubs or gallop Lungs: Clear, no crackles, no wheeze Abd: soft, non tender, non distended, normal BS Ext: No edema, no clubbing, no cyanosis, Neuro: Awake,alert, oriented x 3, moves all ext, non focal Psych:Normal mood - Constitutional Vitals: Temp Pulse Resp BP Pulse Ox 98.1 F 79 16 158/96 100 07/28/18 04:55 07/28/18 04:55 07/28/18 04:55 07/28/18 04:55 07/28/18 04:55 General appearance: Present: no acute distress Results - Labs CBC & Chem 7: 07/28/18 09:25 07/28/18 09:25 Labs: Laboratory Last Values WBC 15.9 K/mm3 (4.5-11.0) H 07/28/18 09:25 RBC 2.45 M/mm3 (3.65-5.03) L 07/28/18 09:25 Hgb 7.3 gm/dl (10.1-14.3) L 07/28/18 09:25 Hct 24.3 % (30.3-42.9) L 07/28/18 09:25 MCV 99 fl (79-97) H 07/28/18 09:25 MCH 30 pg (28-32) 07/28/18 09:25 MCHC 30 % (30-34) 07/28/18 09:25 RDW 15.7 % (13.2-15.2) H 07/28/18 09:25 Plt Count 568 K/mm3 (140-440) H 07/28/18 09:25 Lymph % (Auto) 10.5 % (13.4-35.0) L 07/27/18 04:58 [place] % (Auto) 7.5 % (0.0-7.3) H 07/27/18 04:58 Eos % (Auto) 0.4 % (0.0-4.3) 07/27/18 04:58 Baso % (Auto) 0.4 % (0.0-1.8) 07/27/18 04:58 Lymph # 1.9 K/mm3 (1.2-5.4) 07/27/18 04:58 [place] # 1.4 K/mm3 (0.0-0.8) H 07/27/18 04:58 Eos # 0.1 K/mm3 (0.0-0.4) 07/27/18 04:58 Baso # 0.1 K/mm3 (0.0-0.1) 07/27/18 04:58 Add Manual Diff Complete 07/22/18 13:06 Total Counted 100 07/22/18 13:06 Seg Neutrophils % 81.2 % (40.0-70.0) H 07/27/18 04:58 Seg Neuts % (Manual) 94.0 % (40.0-70.0) H 07/22/18 13:06 0 % 07/22/18 13:06 4.0 % (13.4-35.0) L 07/22/18 13:06 Reactive Lymphs % (Man) 0 % 07/22/18 13:06 2.0 % (0.0-7.3) 07/22/18 13:06 0 % (0.0-4.3) 07/22/18 13:06 0 % (0.0-1.8) 07/22/18 13:06 0 % 07/22/18 13:06 0 % 07/22/18 13:06 0 % 07/22/18 13:06 0 % 07/22/18 13:06 Nucleated RBC % Not Reportable 07/22/18 13:06 Seg Neutrophils # 14.7 K/mm3 (1.8-7.7) H 07/27/18 04:58 Seg Neutrophils # Man 19.1 K/mm3 (1.8-7.7) H 07/22/18 13:06 Band Neutrophils # 0.0 K/mm3 07/22/18 13:06 0.8 K/mm3 (1.2-5.4) L 07/22/18 13:06 Abs React Lymphs (Man) 0.0 K/mm3 07/22/18 13:06 0.4 K/mm3 (0.0-0.8) 07/22/18 13:06 0.0 K/mm3 (0.0-0.4) 07/22/18 13:06 0.0 K/mm3 (0.0-0.1) 07/22/18 13:06 0.0 K/mm3 07/22/18 13:06 0.0 K/mm3 07/22/18 13:06 0.0 K/mm3 07/22/18 13:06 Blast Cells # 0.0 K/mm3 07/22/18 13:06 WBC Morphology Not Reportable 07/22/18 13:06 Hypersegmented Neuts Not Reportable 07/22/18 13:06 Hyposegmented Neuts Not Reportable 07/22/18 13:06 Hypogranular Neuts Not Reportable 07/22/18 13:06 Not Reportable 07/22/18 13:06 Not Reportable 07/22/18 13:06 Not Reportable 07/22/18 13:06 Not Reportable 07/22/18 13:06 Not Reportable 07/22/18 13:06 Not Reportable 07/22/18 13:06 Consistent w auto 07/22/18 13:06 Not Reportable 07/22/18 13:06 Plt Clumps, EDTA Not Reportable 07/22/18 13:06 Not Reportable 07/22/18 13:06 Not Reportable 07/22/18 13:06 Not Reportable 07/22/18 13:06 Plt Morphology Comment Not Reportable 07/22/18 13:06 RBC Morphology Not Reportable 07/22/18 13:06 Dimorphic RBCs Not Reportable 07/22/18 13:06 Not Reportable 07/22/18 13:06 Not Reportable 07/22/18 13:06 Not Reportable 07/22/18 13:06 Few 07/22/18 13:06 Not Reportable 07/22/18 13:06 Not Reportable 07/22/18 13:06 Not Reportable 07/22/18 13:06 Not Reportable 07/22/18 13:06 Not Reportable 07/22/18 13:06 Not Reportable 07/22/18 13:06 Not Reportable 07/22/18 13:06 Not Reportable 07/22/18 13:06 Not Reportable 07/22/18 13:06 Not Reportable 07/22/18 13:06 Not Reportable 07/22/18 13:06 Not Reportable 07/22/18 13:06 Not Reportable 07/22/18 13:06 Not Reportable 07/22/18 13:06 Not Reportable 07/22/18 13:06 Acanthocytes (Spur) Not Reportable 07/22/18 13:06 Rouleaux Not Reportable 07/22/18 13:06 Not Reportable 07/22/18 13:06 Not Reportable 07/22/18 13:06 Not Reportable 07/22/18 13:06 Not Reportable 07/22/18 13:06 Hem Pathologist Commnt No 07/22/18 13:06 PT 14.3 Sec. (12.2-14.9) 07/26/18 12:31 INR 1.14 (0.87-1.13) H 07/26/18 12:31 APTT 23.9 Sec. (24.2-36.6) L 07/26/18 12:31 Heparin Anti-Xa Level 0.33 U.I./ml (0.3-0.7) 07/27/18 20:00 Sodium 139 mmol/L (137-145) 07/28/18 09:25 Potassium 3.8 mmol/L (3.6-5.0) 07/28/18 09:25 Chloride 103.0 mmol/L (98-107) 07/28/18 09:25 Carbon Dioxide 23 mmol/L (22-30) 07/28/18 09:25 17 mmol/L 07/28/18 09:25 BUN 10 mg/dL (7-17) 07/28/18 09:25 0.8 mg/dL (0.7-1.2) 07/28/18 09:25 Estimated GFR > 60 ml/min 07/28/18 09:25 13 % 07/28/18 09:25 Glucose 89 mg/dL (65-100) 07/28/18 09:25 Calcium 9.7 mg/dL (8.4-10.2) 07/28/18 09:25 Phosphorus 2.60 mg/dL (2.5-4.5) 07/27/18 04:58 Magnesium 1.70 mg/dL (1.7-2.3) 07/27/18 04:58 Iron 17 ug/dL (37-170) L 07/27/18 04:58 TIBC 201 mcg/dL (250-450) L 07/27/18 04:58 179.7 ng/mL (13.0-400.0) 07/27/18 04:58 0.30 mg/dL (0.1-1.2) 07/22/18 13:06 AST 9 units/L (5-40) 07/22/18 13:06 ALT 6 units/L (7-56) L 07/22/18 13:06 114 units/L (35-129) 07/22/18 13:06 5.7 g/dL (6.3-8.2) L 07/22/18 13:06 3.2 g/dL (3.9-5) L 07/22/18 13:06 1.3 % 07/22/18 13:06 Vitamin B12 533.1 pg/mL (211-911) 07/27/18 04:58 6.44 ng/mL (7.3-26.0) L 07/27/18 04:58 Yellow (Yellow) 07/27/18 19:40 Clear (Clear) 07/27/18 19:40 8.0 (5.0-7.0) H 07/27/18 19:40 Ur Specific Rebuck 1.013 (1.003-1.030) 07/27/18 19:40 <15 mg/dl mg/dL (Negative) 07/27/18 19:40 Neg mg/dL (Negative) 07/27/18 19:40 Neg mg/dL (Negative) 07/27/18 19:40 Mod (Negative) 07/27/18 19:40 Neg (Negative) 07/27/18 19:40 Neg (Negative) 07/27/18 19:40 < 2.0 mg/dL (<2.0) 07/27/18 19:40 Ur Leukocyte Esterase Sm (Negative) 07/27/18 19:40 5.0 /HPF (0.0-6.0) 07/27/18 19:40 1.0 /HPF (0.0-6.0) 07/27/18 19:40 U Epithel Cells (Auto) 3.0 /HPF (0-13.0) 07/27/18 19:40 2+ /HPF (Negative) 07/25/18 10:35 2+ /HPF 07/25/18 10:35 Blood Type O POSITIVE 07/22/18 13:06 Antibody Screen Negative 07/22/18 13:06 Active Medications - Current Medications Current Medications: Generic Name Dose Route Start Last Admin Trade Name Freq PRN Reason Stop Dose Admin Acetaminophen 650 mg 07/22/18 12:30 07/22/18 17:05 Tylenol PO 650 mg Q4H PRN Administration Pain, Mild (1-3) Acetylcysteine 600 mg 07/27/18 18:00 07/28/18 11:18 Mucomyst Oral PO 600 mg Q12HR DIANNE Administration Diphenhydramine HCl 25 mg 07/22/18 16:27 Benadryl IV Q4H PRN Itching Docusate Sodium 100 mg 07/22/18 22:00 07/28/18 11:05 Colace PO 100 mg BID DIANNE Administration Famotidine 20 mg 07/24/18 22:00 07/27/18 21:33 Pepcid PO 20 mg BID DIANNE Administration Ferrous Sulfate 325 mg 07/24/18 22:00 07/28/18 11:05 Feosol PO 325 mg BID DIANNE Administration Folic Acid 1 mg 07/27/18 12:00 07/28/18 11:05 Folvite PO 1 mg QDAY DIANNE Administration Hydromorphone/Sodium Chloride 0 mg 07/22/18 18:00 07/22/18 18:03 Dilaudid Engineering Aide 6mg/30ml IV 0.3 mg DIRECT DIANNE Administration Protocol Heparin Sodium/Sodium Chloride 25,000 unit in 500 mls @ 27 mls/hr 07/26/18 12:00 07/27/18 21:43 Heparin/ 0.45% Nacl-25,000 Unit/500 Ml IV 1,650 units/hr TITR DIANNE 33 mls/hr Administration Protocol 1,350 UNITS/HR Ceftriaxone Sodium 2 gm in 100 mls @ 200 mls/hr 07/26/18 20:00 07/27/18 21:35 Rocephin/Ns 2 Gm/100 Ml IV 200 mls/hr Q24H DIANNE Administration Protocol Sodium Bicarbonate 150 meq/ 1,150 mls @ 75 mls/hr 07/27/18 17:00 07/28/18 10:34 Sterile Water IV 75 mls/hr DIRECT DIANNE Administration Mycophenolate Mofetil 1,000 mg 07/26/18 14:30 07/28/18 11:06 Cellcept PO 1,000 mg BID DIANNE Administration Naloxone HCl 0.1 mg 07/22/18 16:27 Narcan 0.4 Mg/1 Ml IV Q2MIN PRN Res Rate </= 8 or 02 SAT < 92% Ondansetron HCl 4 mg 07/22/18 12:30 07/23/18 08:31 Zofran Odt PO 4 mg Q8H PRN Administration Nausea And Vomiting Ondansetron HCl 4 mg 07/22/18 16:27 07/23/18 16:07 Zofran IV 4 mg Q4H PRN Administration Nausea Oxycodone/Acetaminophen 2 tab 07/26/18 00:01 07/28/18 08:03 Percocet 5/325 PO 2 tab Q6H PRN Administration Pain, Moderate (4-6) Prednisone 5 mg 07/26/18 14:00 07/28/18 11:05 Deltasone PO 5 mg QDAY DIANNE Administration Senna 8.6 mg 07/22/18 17:00 07/28/18 11:05 Senokot PO 8.6 mg Q12HR DIANNE Administration Tacrolimus 2 mg 07/24/18 22:00 07/28/18 11:04 Prograf PO 2 mg Q12HR DIANNE Administration
--- NOTE | 2018-07-28 12:18 | Progress Note ---
Assessment and Plan A:POD #6 s/p uterine fibroid embolization with gel foam now with dyspnea and suspected pulmonary embolism on VQ scan Acute PE - Heparin drip per IM - Nephrology recommneded ct chest - Scheduled CT angiogram Anemia, chronic blood loss from Uterine Bleedings/p UFE - Continue to monitor H&H, transfuse ( check CBC today) History of kidney transplant - Continue CellCept, prednisone and Prograf - Consulted nephrology DVT prophylaxis: on heparin drip Appreciate all consults Subjective - Subjective Date of service: 07/28/18 Principal diagnosis: PE Patient reports: appetite normal, voiding normally, pain well controlled, flatus, ambulating normally Objective - Vital Signs Latest vital signs: Vital Signs Temp Pulse Resp BP Pulse Ox 07/28/18 04:55 98.1 F 79 16 158/96 100 07/27/18 22:07 98.8 F 24 07/27/18 22:05 98.8 F 84 24 118/67 100 07/27/18 17:08 147/109 07/27/18 12:26 98.5 F 92 H 18 152/77 95 Intake and Output 07/27/18 07/28/18 07/28/18 23:59 07:59 15:59 Intake Total 1179.267 800 Balance 1179.267 800 Intake: IV 229.267 HEPARIN/ 0.45% NACL-25, 229.267 000 UNIT/500 ML 25,000 unit In 500 ml @ 1,350 UNITS/HR 27 mls/hr IV TITR DIANNE Rx#:[id number] Oral 950 800 Other: Total, Intake Amount 950 800 Voiding Method Toilet Weight 70.2 kg Patient Weight 07/28/18 23:59 Weight 70.2 kg - Exam Breasts: Present: normal Cardiovascular: Present: Regular rate, Normal S1 Lungs: Present: Clear to auscultation, Normal air movement Abdomen: Present: normal appearance, soft, normal bowel sounds. Absent: distention, tenderness, guarding Uterus: Present: normal, firm, fundal height below umbilicus. Absent: bogginess, tenderness Extremities: Present: normal Deep Tendon Reflex Grade: Normal +2 - Labs Labs: Abnormal lab results 07/27/18 07/27/18 07/28/18 Range/Units 13:19 19:40 09:25 WBC 15.9 H (4.5-11.0) K/mm3 RBC 2.45 L (3.65-5.03) M/mm3 Hgb 7.3 L (10.1-14.3) gm/dl Hct 24.3 L (30.3-42.9) % MCV 99 H (79-97) fl RDW 15.7 H (13.2-15.2) % Plt Count 568 H (140-440) K/mm3 Heparin Anti-Xa Level 0.24 L (0.3-0.7) U.I./ml Urine pH 8.0 H (5.0-7.0)
[2018-07-28] MEDS: HEPARIN/ 0.45% NACL-25,000 UNIT/500 ML 25,000 UNIT/500 ML BAG IV SCH (13:32)
--- NOTE | 2018-07-28 14:12 | Cat Scan Report ---
CTA chest: History: Pulmonary embolism. Findings: Enlarged right lobe of thyroid gland. Sonographic examination recommended. No evidence of pulmonary embolism or aortic aneurysm. No mediastinal adenopathy. No lung consolidation or nodularity. Impression: Enlarged right lobe thyroid gland. Sonographic examination advised. No evidence of pulmonary embolism.
[2018-07-28] MEDS ORDERED: DIFLUCAN PO ONE ×2 (15:00→18:00)
--- NOTE | 2018-07-28 20:26 | Progress Note ---
Assessment and Plan 1. S/p Kidney Transplant: Patient received kidney transplant in Nov 2017. Renal function is normal. Low risk for Contrast induced nephropathy. Started on IV fluids and Mucomyst for prophylaxis. Couldn't do CTA yesterday due to IV issues. Informed the RN to run the IV fluids for atleast 2 hrs prior to CTA. Monitor renal function. Continue Transplant medications. 2. Respiratory failure: CTA pending to r/o PE. 3. Suspected PE: On Heparin drip. 4. Uterine bleeding: S/p selective uterine artery embolization. 5. Anemia: POA. 6. Leukocytosis: UTI. 7. Hypertension. Subjective Date of service: 07/28/18 Principal diagnosis: PE Interval history: Patient was seen and examined at the bedside. Doing well. Daughter at the bedside. Objective - Vital Signs Vital signs: Vital Signs - 12hr 07/28/18 07/28/18 11:56 17:35 Temperature 98.2 F 97.9 F Pulse Rate 79 Respiratory 16 18 Rate Blood Pressure 129/83 169/97 O2 Sat by Pulse 100 Oximetry - General Appearance General appearance: well-developed, well-nourished, appears stated age, obese, other (no distress) EENT: ATNC, PERRL, mucous membranes moist, hearing intact, vision intact Neck: supple Respiratory: Present: Clear to Ascultation Cardiology: regular, S1S2, no murmurs Gastrointestinal: normoactive bowel sounds, no tenderness, no distended, obese Integumentary: no rash, warm and dry Neurologic: no focal deficit, no asterixis, alert and oriented x3 Musculoskeletal: other (no edema) - Lab 07/28/18 09:25 07/28/18 09:25 Most recent lab results Calcium 9.7 mg/dL (8.4-10.2) 07/28/18 09:25 Phosphorus 2.60 mg/dL (2.5-4.5) 07/27/18 04:58 Magnesium 1.70 mg/dL (1.7-2.3) 07/27/18 04:58 Medications & Allergies - Medications Allergies/Adverse Reactions: Allergies promethazine HCl [From Phenergan] Allergy (Verified 01/31/17 11:41) Itching Home Medications: Home Medications Medication Instructions Recorded Confirmed Last Taken Type Carvedilol [Coreg] 25 mg PO BID 01/31/17 05/07/17 05/06/17 History amLODIPine 10 mg PO DAILY 01/31/17 05/07/17 05/06/17 History oxyCODONE /ACETAMINOPHEN [Percocet 1 tab PO Q6HR PRN #30 tablet 07/24/18 Unknown Rx 5/325] Cellcept 1,000 mg PO BID 07/26/18 07/26/18 Unknown History Ferrous Sulfate [Feosol 325 MG tab] 325 mg PO BID #60 tablet 07/26/18 Unknown Rx Tacrolimus [Prograf] 2 mg PO Q12H 07/26/18 07/26/18 Unknown History predniSONE [Deltasone] 5 mg PO QDAY 07/26/18 07/26/18 Unknown History Active Medications: Generic Name Dose Route Start Last Admin Trade Name Freq PRN Reason Stop Dose Admin Acetaminophen 650 mg 07/22/18 12:30 07/22/18 17:05 Tylenol PO 650 mg Q4H PRN Administration Pain, Mild (1-3) Acetylcysteine 600 mg 07/27/18 18:00 07/28/18 11:18 Mucomyst Oral PO 600 mg Q12HR DIANNE Administration Diphenhydramine HCl 25 mg 07/22/18 16:27 Benadryl IV Q4H PRN Itching Docusate Sodium 100 mg 07/22/18 22:00 07/28/18 11:05 Colace PO 100 mg BID DIANNE Administration Famotidine 20 mg 07/24/18 22:00 07/28/18 11:00 Pepcid PO 20 mg BID DIANNE Administration Ferrous Sulfate 325 mg 07/24/18 22:00 07/28/18 11:05 Feosol PO 325 mg BID DIANNE Administration Folic Acid 1 mg 07/27/18 12:00 07/28/18 11:05 Folvite PO 1 mg QDAY DIANNE Administration Hydromorphone/Sodium Chloride 0 mg 07/22/18 18:00 07/22/18 18:03 Dilaudid Replacer 6mg/30ml IV 0.3 mg DIRECT DIANNE Administration Protocol Ceftriaxone Sodium 2 gm in 100 mls @ 200 mls/hr 07/26/18 20:00 07/27/18 21:35 Rocephin/Ns 2 Gm/100 Ml IV 200 mls/hr Q24H DIANNE Administration Protocol Sodium Bicarbonate 150 meq/ 1,150 mls @ 75 mls/hr 07/27/18 17:00 07/28/18 10:34 Sterile Water IV 75 mls/hr DIRECT DIANNE Administration Mycophenolate Mofetil 1,000 mg 07/26/18 14:30 07/28/18 11:06 Cellcept PO 1,000 mg BID DIANNE Administration Naloxone HCl 0.1 mg 07/22/18 16:27 Narcan 0.4 Mg/1 Ml IV Q2MIN PRN Res Rate </= 8 or 02 SAT < 92% Ondansetron HCl 4 mg 07/22/18 12:30 07/23/18 08:31 Zofran Odt PO 4 mg Q8H PRN Administration Nausea And Vomiting Ondansetron HCl 4 mg 07/22/18 16:27 07/23/18 16:07 Zofran IV 4 mg Q4H PRN Administration Nausea Oxycodone/Acetaminophen 2 tab 07/26/18 00:01 07/28/18 18:03 Percocet 5/325 PO 2 tab Q6H PRN Administration Pain, Moderate (4-6) Prednisone 5 mg 07/26/18 14:00 07/28/18 11:05 Deltasone PO 5 mg QDAY DIANNE Administration Senna 8.6 mg 07/22/18 17:00 07/28/18 11:05 Senokot PO 8.6 mg Q12HR DIANNE Administration Tacrolimus 2 mg 07/24/18 22:00 07/28/18 11:04 Prograf PO 2 mg Q12HR DIANNE Administration
[2018-07-28] MEDS: ROCEPHIN/NS 2 GM/100 ML 2 GM/100 ML BAG IV SCH (22:14)
[2018-07-28] MEDS ORDERED: VITAMIN B-12 SUB-Q ONE (22:45)
[2018-07-28] MEDS ORDERED: FERRLECIT 125 MG in NACL 0.9% 100 ML IV ONE (23:00)
[2018-07-29] MEDS ORDERED: NORVASC PO ONE (01:20)
[2018-07-29] MEDS: PERCOCET 5/325 PO PRN ×2 (05:06→12:24)
[2018-07-29 05:50] LABS: Hematocrit 23.4 % (30.3-42.9); Hemoglobin 7.6 gm/dl (10.1-14.3); Mean Corpuscular HGB Conc 32 % (30-34); Mean Corpuscular Volume 94 fl (79-97); Red Blood Count 2.49 M/mm3 (3.65-5.03); Red Cell Distribution Width 15.4 % (13.2-15.2)
[2018-07-29 05:53] LABS: Platelet Count 664 K/mm3 (140-440)
[2018-07-29 06:10] LABS: BUN/Creatinine Ratio 10; Blood Urea Nitrogen 7 mg/dL (7-17); Hemolysis Index 5
[2018-07-29 07:03] LABS: Basophils % (Manual) 0 % (0.0-1.8); Total Cells Counted 100
[2018-07-29 07:04] LABS: Anisocytosis 1+; Platelet Estimate Consistent w Auto
--- NOTE | 2018-07-29 07:27 | Hem/Onc Progress Note ---
Assessment and Plan 1. Pulmonary embolism based on V/Q scan. however CTA no PE 2. History of renal transplant, right lower quadrant, done 11/2017. 3. The patient on mycophenolate, prednisone, and tacrolimus. 4. Anemia. We will investigate. 5. History of dysfunctional uterine bleeding - DUB, status post foam embolization. 6. History of hypertension. 7. Leukocytosis. 8. V/Q scan shows high probability pulmonary embolism, right upper lobe. 9. History of fibroid uterus. I will follow the patient during inpatient stay and then in the clinic setting. I discussed with the patient regarding heparin, Eliquis, Xarelto and Coumadin. pt was on hormonal supplements for her DUB - this may have a role in her PE however later CTA shows no PE could this be fat or air embolism??? OP follow up for anemia - Patient Problems (1) Pulmonary embolism Status: Acute Subjective Date of service: 07/29/18 Principal diagnosis: anemia Interval history: no PE on CTA Objective - Exam Narrative Exam: Pain none General appearance no acute distress Performance status selfcare ambulatory Eyes EOM intact ENT hearing intact/ Clear oral mucosa LNs cervical not palpable Neck normal ROM Respiratory Normal Breath sounds - CTA CVS S1 S2 + Extremities normal temperature/ no edema General GI Soft non tender Rectal deferred Female - deferred Skin warm Musculoskeletal strength equal bilaterally Neurologically no Focal deficit/ moves all extremities - Constitutional Vitals: Last Vital Signs Temp 98.6 F 07/29/18 06:45 Pulse 77 07/29/18 06:45 Resp 20 07/29/18 06:45 BP 133/85 07/29/18 06:45 Pulse Ox 96 07/29/18 06:45 - Labs Lab Results: Laboratory Results - last 24 hr 07/28/18 07/28/18 07/29/18 09:25 09:25 04:47 WBC 15.9 H 19.9 H RBC 2.45 L 2.49 L Hgb 7.3 L 7.6 L Hct 24.3 L 23.4 L MCV 99 H 94 MCH 30 30 MCHC 30 32 RDW 15.7 H 15.4 H Plt Count 568 H 664 H Add Manual Diff Complete Total Counted 100 Seg Neuts % (Manual) 81.0 H Band Neutrophils % 0 Lymphocytes % (Manual) 10.0 L Reactive Lymphs % (Man) 0 Monocytes % (Manual) 7.0 Eosinophils % (Manual) 1.0 Basophils % (Manual) 0 Metamyelocytes % 1.0 Myelocytes % 0 Promyelocytes % 0 Blast Cells % 0 Nucleated RBC % 2.0 H Seg Neutrophils # Man 16.1 H Band Neutrophils # 0.0 Lymphocytes # (Manual) 2.0 Abs React Lymphs (Man) 0.0 Monocytes # (Manual) 1.4 H Eosinophils # (Manual) 0.2 Basophils # (Manual) 0.0 Metamyelocytes # 0.2 Myelocytes # 0.0 Promyelocytes # 0.0 Blast Cells # 0.0 WBC Morphology Not Reportable Hypersegmented Neuts Not Reportable Hyposegmented Neuts Not Reportable Hypogranular Neuts Not Reportable Smudge Cells Not Reportable Toxic Granulation Not Reportable Toxic Vacuolation Not Reportable Dohle Bodies Not Reportable Pelger-Huet Anomaly Not Reportable Rodo Rods Not Reportable Platelet Estimate Consistent w auto Clumped Platelets Not Reportable Plt Clumps, EDTA Not Reportable Large Platelets Not Reportable Giant Platelets Not Reportable Platelet Satelliting Not Reportable Plt Morphology Comment Not Reportable RBC Morphology Not Reportable Dimorphic RBCs Not Reportable Polychromasia Not Reportable Hypochromasia Not Reportable Poikilocytosis Not Reportable Anisocytosis 1+ Microcytosis Not Reportable Macrocytosis Not Reportable Spherocytes Not Reportable Pappenheimer Bodies Not Reportable Sickle Cells Not Reportable Target Cells Not Reportable Tear Drop Cells Not Reportable Ovalocytes Not Reportable Helmet Cells Not Reportable Mejia-Joaquin Bodies Not Reportable [place] Rings Not Reportable [place] Cells Not Reportable Bite Cells Not Reportable Crenated Cell Not Reportable Elliptocytes Not Reportable Acanthocytes (Spur) Not Reportable Rouleaux Not Reportable Hemoglobin C Crystals Not Reportable Schistocytes Not Reportable Malaria parasites Not Reportable Joel Bodies Not Reportable Hem Pathologist Commnt No Sodium 139 Potassium 3.8 Chloride 103.0 Carbon Dioxide 23 Anion Gap 17 BUN 10 Creatinine 0.8 Estimated GFR > 60 BUN/Creatinine Ratio 13 Glucose 89 Calcium 9.7 07/29/18 04:47 WBC RBC Hgb Hct MCV MCH MCHC RDW Plt Count Add Manual Diff Total Counted Seg Neuts % (Manual) Band Neutrophils % Lymphocytes % (Manual) Reactive Lymphs % (Man) Monocytes % (Manual) Eosinophils % (Manual) Basophils % (Manual) Metamyelocytes % Myelocytes % Promyelocytes % Blast Cells % Nucleated RBC % Seg Neutrophils # Man Band Neutrophils # Lymphocytes # (Manual) Abs React Lymphs (Man) Monocytes # (Manual) Eosinophils # (Manual) Basophils # (Manual) Metamyelocytes # Myelocytes # Promyelocytes # Blast Cells # WBC Morphology Hypersegmented Neuts Hyposegmented Neuts Hypogranular Neuts Smudge Cells Toxic Granulation Toxic Vacuolation Dohle Bodies Pelger-Huet Anomaly Rodo Rods Platelet Estimate Clumped Platelets Plt Clumps, EDTA Large Platelets Giant Platelets Platelet Satelliting Plt Morphology Comment RBC Morphology Dimorphic RBCs Polychromasia Hypochromasia Poikilocytosis Anisocytosis Microcytosis Macrocytosis Spherocytes Pappenheimer Bodies Sickle Cells Target Cells Tear Drop Cells Ovalocytes Helmet Cells Mejia-Joaquin Bodies [place] Rings Lluvia Cells Bite Cells Crenated Cell Elliptocytes Acanthocytes (Spur) Rouleaux Hemoglobin C Crystals Schistocytes Malaria parasites Joel Bodies Hem Pathologist Commnt Sodium 138 Potassium 3.8 Chloride 100.2 Carbon Dioxide 24 Anion Gap 18 BUN 7 Creatinine 0.7 Estimated GFR > 60 BUN/Creatinine Ratio 10 Glucose 83 Calcium 10.0 Medications & Allergies - Medications Allergies/Adverse Reactions: Allergies promethazine HCl [From Phenergan] Allergy (Verified 01/31/17 11:41) Itching Home Medications: Home Medications Medication Instructions Recorded Confirmed Last Taken Type Carvedilol [Coreg] 25 mg PO BID 01/31/17 07/29/18 05/06/17 History amLODIPine 10 mg PO DAILY 01/31/17 07/29/18 05/06/17 History oxyCODONE /ACETAMINOPHEN [Percocet 1 tab PO Q6HR PRN #30 tablet 07/24/18 Unknown Rx 5/325] Cellcept 1,000 mg PO BID 07/26/18 07/26/18 Unknown History Ferrous Sulfate [Feosol 325 MG tab] 325 mg PO BID #60 tablet 07/26/18 Unknown Rx Tacrolimus [Prograf] 2 mg PO Q12H 07/26/18 07/26/18 Unknown History predniSONE [Deltasone] 5 mg PO QDAY 07/26/18 07/26/18 Unknown History Active Medications: Generic Name Dose Route Start Last Admin Trade Name Freq PRN Reason Stop Dose Admin Acetaminophen 650 mg 07/22/18 12:30 07/22/18 17:05 Tylenol PO 650 mg Q4H PRN Administration Pain, Mild (1-3) Acetylcysteine 600 mg 07/27/18 18:00 07/28/18 22:13 Mucomyst Oral PO Not Given Q12HR [facility] Amlodipine Besylate 10 mg 07/29/18 10:00 Norvasc PO DAILY [facility] Diphenhydramine HCl 25 mg 07/22/18 16:27 Benadryl IV Q4H PRN Itching Docusate Sodium 100 mg 07/22/18 22:00 07/28/18 22:13 Colace PO Not Given BID DIANNE Famotidine 20 mg 07/24/18 22:00 07/28/18 22:17 Pepcid PO 20 mg BID DIANNE Administration Ferrous Sulfate 325 mg 07/24/18 22:00 07/28/18 22:18 Feosol PO 325 mg BID DIANNE Administration Folic Acid 1 mg 07/27/18 12:00 07/28/18 11:05 Folvite PO 1 mg QDAY DIANNE Administration Hydromorphone/Sodium Chloride 0 mg 07/22/18 18:00 07/22/18 18:03 Dilaudid Complex Human Resources Manager 6mg/30ml IV 0.3 mg DIRECT DIANNE Administration Protocol Ceftriaxone Sodium 2 gm in 100 mls @ 200 mls/hr 07/26/18 20:00 07/28/18 22:14 Rocephin/Ns 2 Gm/100 Ml IV 200 mls/hr Q24H DIANNE Administration Protocol Sodium Bicarbonate 150 meq/ 1,150 mls @ 75 mls/hr 07/27/18 17:00 07/28/18 10:34 Sterile Water IV 75 mls/hr DIRECT DIANNE Administration Mycophenolate Mofetil 1,000 mg 07/26/18 14:30 07/28/18 22:14 Cellcept PO 1,000 mg BID DIANNE Administration Naloxone HCl 0.1 mg 07/22/18 16:27 Narcan 0.4 Mg/1 Ml IV Q2MIN PRN Res Rate </= 8 or 02 SAT < 92% Ondansetron HCl 4 mg 07/22/18 12:30 07/23/18 08:31 Zofran Odt PO 4 mg Q8H PRN Administration Nausea And Vomiting Ondansetron HCl 4 mg 07/22/18 16:27 07/23/18 16:07 Zofran IV 4 mg Q4H PRN Administration Nausea Oxycodone/Acetaminophen 2 tab 07/26/18 00:01 07/29/18 05:06 Percocet 5/325 PO 2 tab Q6H PRN Administration Pain, Moderate (4-6) Prednisone 5 mg 07/26/18 14:00 07/28/18 11:05 Deltasone PO 5 mg QDAY DIANNE Administration Senna 8.6 mg 07/22/18 17:00 07/28/18 22:13 Senokot PO Not Given Q12HR DIANNE Tacrolimus 2 mg 07/24/18 22:00 07/28/18 22:14 Prograf PO 2 mg Q12HR DIANNE Administration
--- NOTE | 2018-07-29 08:54 | Progress Note ---
Assessment and Plan Cultures: 07/25/2018 Urine: 10-100k of usual skin michelle Assessment: 38 y/o female with history of ESRD s/p renal transplant 8 months ago on tacrolimus admitted on 07/22/2018 due to dysfunctional uterine bleeding, found with anemia and leukocytosis: 1) Leukocytosis: Trending up , 19K today. On steroids. Etiology unclear. no fevers. possible reactive due to acute blood loss/anemia +/- UTI. CXR no consolidations. PE ruled out 2) UTI: partially done UA shows 51 wbc. Repeat u/s w/o pyuria. small LE. Renal US shows the renal transplant in the right lower quadrant is within normal limits.No evidence for obstructing stones. There are no obvious findings to suggest pyelonephritis 3) Dysfunctional uterine bleeding s/p right uterine artery embolization on 07/22/2018. Now very light vaginal spotting. 4) Presumed Pulmonary Embolus: Ruled out. VQ scan with concern for PE. Chest CT found no evidence of pulmonary embolism. 5) Galilea vaginitis: Fluconazole ordered, times 1 dose. Recommendations: - continue ceftriaxone 2 gm IV qday, D5- last dose today -Ok to discharge from ID standpoint - f/u with ID clinic in 3 weeks to check WBC (sent to mill order scheduler) China Ovalle NP [facility] M: [id number] O:[phone] Subjective Date of service: 07/29/18 Principal diagnosis: PE Interval history: Patient seen and examined. Reports no pain or generalized weakness. Light vaginal spotting continuing. No fevers. Objective - Exam Narrative Exam: General appearance: Awake. Alert. No acute distress. Eyes: anicteric sclerae, moist conjunctivae; no lid-lag; PERRLA HENT: Atraumatic; oropharynx clear with moist mucous membranes and no mucosal ulcerations/no oral thrush; normal hard and soft palate. Normal external ears. Neck: Trachea midline; supple, no thyromegaly or lymphadenopathy Lungs: CTA, with normal respiratory effort and no intercostal retractions CV: RRR no murmur Abdomen: Soft, non-tender; no masses or hepatosplenomegaly Extremities: no edema, cyanosis Skin: +tattoos, no rash, ulcers or subcutaneous nodules Psych: Appropriate affect, alert and oriented to person, place and time. Neuro: alert and oriented x 3. Moving all extremities - Constitutional Vitals: Vital Signs Temp Pulse Resp BP Pulse Ox 98.6 F 77 20 133/85 96 07/29/18 06:45 07/29/18 06:45 07/29/18 06:45 07/29/18 06:45 07/29/18 06:45 Temperature -Last 24 Hours Temperature 98.6 F Temperature 98.8 F Temperature 97.9 F Temperature 98.2 F - Labs CBC & Chem 7: 07/29/18 04:47 07/29/18 04:47 Labs: Abnormal lab results 07/28/18 07/29/18 Range/Units 09:25 04:47 WBC 15.9 H 19.9 H (4.5-11.0) K/mm3 RBC 2.45 L 2.49 L (3.65-5.03) M/mm3 Hgb 7.3 L 7.6 L (10.1-14.3) gm/dl Hct 24.3 L 23.4 L (30.3-42.9) % MCV 99 H (79-97) fl RDW 15.7 H 15.4 H (13.2-15.2) % Plt Count 568 H 664 H (140-440) K/mm3 Seg Neuts % (Manual) 81.0 H (40.0-70.0) % Lymphocytes % (Manual) 10.0 L (13.4-35.0) % Nucleated RBC % 2.0 H (0.0-0.9) % Seg Neutrophils # Man 16.1 H (1.8-7.7) K/mm3 Monocytes # (Manual) 1.4 H (0.0-0.8) K/mm3
--- NOTE | 2018-07-29 09:27 | Progress Note ---
Assessment and Plan 1. S/p Kidney Transplant: Patient received kidney transplant in Nov 2017. Had CTA. Renal function is normal. Continue Transplant medications. 2. Respiratory failure with suspected PE: CTA negative for PE. 3. Uterine bleeding: S/p selective uterine artery embolization. 4. Anemia: POA. 5. Leukocytosis: ?UTI. On Ceftriaxone. 6. Hypertension. Subjective Date of service: 07/29/18 Principal diagnosis: PE Interval history: Patient was seen and examined at the bedside. Doing well. Objective - Vital Signs Vital signs: Vital Signs - 12hr 07/29/18 07/29/18 07/29/18 00:49 01:38 06:45 Temperature 98.8 F 98.6 F Pulse Rate 85 85 77 Respiratory 20 20 Rate Blood Pressure 159/95 159/95 133/85 O2 Sat by Pulse 100 96 Oximetry - General Appearance General appearance: well-developed, well-nourished, appears stated age, obese, other (no distress) EENT: ATNC, PERRL, mucous membranes moist, hearing intact, vision intact Neck: supple Respiratory: Present: Clear to Ascultation Cardiology: regular, S1S2, no murmurs Gastrointestinal: normoactive bowel sounds, no tenderness, no distended Integumentary: no rash, warm and dry Neurologic: no focal deficit, no asterixis, alert and oriented x3 Musculoskeletal: other (no edema) Psychiatric: cooperative - Lab 07/29/18 04:47 07/29/18 04:47 Most recent lab results Calcium 10.0 mg/dL (8.4-10.2) 07/29/18 04:47 Phosphorus 2.60 mg/dL (2.5-4.5) 07/27/18 04:58 Magnesium 1.70 mg/dL (1.7-2.3) 07/27/18 04:58 Medications & Allergies - Medications Allergies/Adverse Reactions: Allergies promethazine HCl [From Phenergan] Allergy (Verified 01/31/17 11:41) Itching Home Medications: Home Medications Medication Instructions Recorded Confirmed Last Taken Type Carvedilol [Coreg] 25 mg PO BID 01/31/17 07/29/18 05/06/17 History amLODIPine 10 mg PO DAILY 01/31/17 07/29/18 05/06/17 History oxyCODONE /ACETAMINOPHEN [Percocet 1 tab PO Q6HR PRN #30 tablet 07/24/18 Unknown Rx 5/325] Cellcept 1,000 mg PO BID 07/26/18 07/26/18 Unknown History Ferrous Sulfate [Feosol 325 MG tab] 325 mg PO BID #60 tablet 07/26/18 Unknown Rx Tacrolimus [Prograf] 2 mg PO Q12H 07/26/18 07/26/18 Unknown History predniSONE [Deltasone] 5 mg PO QDAY 07/26/18 07/26/18 Unknown History Active Medications: Generic Name Dose Route Start Last Admin Trade Name Freq PRN Reason Stop Dose Admin Acetaminophen 650 mg 07/22/18 12:30 07/22/18 17:05 Tylenol PO 650 mg Q4H PRN Administration Pain, Mild (1-3) Acetylcysteine 600 mg 07/27/18 18:00 07/28/18 22:13 Mucomyst Oral PO Not Given Q12HR DIANNE Amlodipine Besylate 10 mg 07/29/18 10:00 Norvasc PO DAILY DIANNE Diphenhydramine HCl 25 mg 07/22/18 16:27 Benadryl IV Q4H PRN Itching Docusate Sodium 100 mg 07/22/18 22:00 07/28/18 22:13 Colace PO Not Given BID DIANNE Famotidine 20 mg 07/24/18 22:00 07/28/18 22:17 Pepcid PO 20 mg BID DIANNE Administration Ferrous Sulfate 325 mg 07/24/18 22:00 07/28/18 22:18 Feosol PO 325 mg BID DIANNE Administration Folic Acid 1 mg 07/27/18 12:00 07/28/18 11:05 Folvite PO 1 mg QDAY DIANNE Administration Hydromorphone/Sodium Chloride 0 mg 07/22/18 18:00 07/22/18 18:03 Dilaudid Forestry Biology Specialist 6mg/30ml IV 0.3 mg DIRECT DIANNE Administration Protocol Ceftriaxone Sodium 2 gm in 100 mls @ 200 mls/hr 07/26/18 20:00 07/28/18 22:14 Rocephin/Ns 2 Gm/100 Ml IV 200 mls/hr Q24H DIANNE Administration Protocol Sodium Bicarbonate 150 meq/ 1,150 mls @ 75 mls/hr 07/27/18 17:00 07/28/18 10:34 Sterile Water IV 75 mls/hr DIRECT DIANNE Administration Mycophenolate Mofetil 1,000 mg 07/26/18 14:30 07/28/18 22:14 Cellcept PO 1,000 mg BID DIANNE Administration Naloxone HCl 0.1 mg 07/22/18 16:27 Narcan 0.4 Mg/1 Ml IV Q2MIN PRN Res Rate </= 8 or 02 SAT < 92% Ondansetron HCl 4 mg 07/22/18 12:30 07/23/18 08:31 Zofran Odt PO 4 mg Q8H PRN Administration Nausea And Vomiting Ondansetron HCl 4 mg 07/22/18 16:27 07/23/18 16:07 Zofran IV 4 mg Q4H PRN Administration Nausea Oxycodone/Acetaminophen 2 tab 07/26/18 00:01 07/29/18 05:06 Percocet 5/325 PO 2 tab Q6H PRN Administration Pain, Moderate (4-6) Prednisone 5 mg 07/26/18 14:00 07/28/18 11:05 Deltasone PO 5 mg QDAY DIANNE Administration Senna 8.6 mg 07/22/18 17:00 07/28/18 22:13 Senokot PO Not Given Q12HR DIANNE Tacrolimus 2 mg 07/24/18 22:00 07/28/18 22:14 Prograf PO 2 mg Q12HR DIANNE Administration
[2018-07-29] MEDS ORDERED: NORVASC PO SCH (10:00)
[2018-07-29] MEDS: PROGRAF PO SCH (11:18)
[2018-07-29] MEDS: DELTASONE PO SCH (11:18)
[2018-07-29] MEDS: CELLCEPT PO SCH (11:19)
[2018-07-29] MEDS: SENOKOT PO SCH (11:19)
[2018-07-29] MEDS: PEPCID PO SCH (11:19)
[2018-07-29] MEDS: FOLVITE PO SCH (11:19)
[2018-07-29] MEDS: FEOSOL PO SCH (11:19)
[2018-07-29] MEDS: COLACE PO SCH (11:19)
--- NOTE | 2018-07-29 12:21 | Progress Note ---
Assessment and Plan Assessment and plan: 38 YO Female with Obesity, Uterine Bleeding S/P UFE consult placed to hospitalist medicine by Dr. Weston for respiratory failure. VQ scan was ordered and showed intermediate to high probability of PE. Patient has history of end- stage renal disease with kidney transplant. Nephrology consulted to get re commendation for CTA chest to confirm the diagnosis of pulmonary embilism. CT Angio chest negative for pulmonary embolism. Patient does not have pulmonary embolism. CT Angio negative for PE - Heparin drip discontinued -V/Q scan had reported PE, but now ruled out. Anemia, likely from chronic blood loss from Uterine Bleeding - Continue to monitor H&H, transfuse as needed History of kidney transplant - Continue CellCept, prednisone and Prograf - Nephrology following Patient medically stable to dc from Hospitalist standpoint. To follow up with PCP in 1 week. History Interval history: Feels better Weakness improved Hospitalist Physical - Physical exam Narrative exam: Gen: Not in acute distress, lying in bed,obese HEENT: Normocephalic, atraumatic Neck: supple, no JVD Heart: S1 and S2 reg, no murmurs, rubs or gallop Lungs: Clear, no crackles, no wheeze Abd: soft, non tender, non distended, normal BS Ext: No edema, no clubbing, no cyanosis, Neuro: Awake,alert, oriented x 3, moves all ext, non focal Psych:Normal mood - Constitutional Vitals: Temp Pulse Resp BP Pulse Ox 98.6 F 104 H 20 157/92 96 07/29/18 06:45 07/29/18 11:22 07/29/18 06:45 07/29/18 11:22 07/29/18 06:45 General appearance: Present: no acute distress Results - Labs CBC & Chem 7: 07/29/18 04:47 07/29/18 04:47 Labs: Laboratory Last Values WBC 19.9 K/mm3 (4.5-11.0) H 07/29/18 04:47 RBC 2.49 M/mm3 (3.65-5.03) L 07/29/18 04:47 Hgb 7.6 gm/dl (10.1-14.3) L 07/29/18 04:47 Hct 23.4 % (30.3-42.9) L 07/29/18 04:47 MCV 94 fl (79-97) 07/29/18 04:47 MCH 30 pg (28-32) 07/29/18 04:47 MCHC 32 % (30-34) 07/29/18 04:47 RDW 15.4 % (13.2-15.2) H 07/29/18 04:47 Plt Count 664 K/mm3 (140-440) H 07/29/18 04:47 Lymph % (Auto) 10.5 % (13.4-35.0) L 07/27/18 04:58 [place] % (Auto) 7.5 % (0.0-7.3) H 07/27/18 04:58 Eos % (Auto) 0.4 % (0.0-4.3) 07/27/18 04:58 Baso % (Auto) 0.4 % (0.0-1.8) 07/27/18 04:58 Lymph # 1.9 K/mm3 (1.2-5.4) 07/27/18 04:58 [place] # 1.4 K/mm3 (0.0-0.8) H 07/27/18 04:58 Eos # 0.1 K/mm3 (0.0-0.4) 07/27/18 04:58 Baso # 0.1 K/mm3 (0.0-0.1) 07/27/18 04:58 Add Manual Diff Complete 07/29/18 04:47 Total Counted 100 07/29/18 04:47 Seg Neutrophils % 81.2 % (40.0-70.0) H 07/27/18 04:58 Seg Neuts % (Manual) 81.0 % (40.0-70.0) H 07/29/18 04:47 0 % 07/29/18 04:47 10.0 % (13.4-35.0) L 07/29/18 04:47 Reactive Lymphs % (Man) 0 % 07/29/18 04:47 7.0 % (0.0-7.3) 07/29/18 04:47 1.0 % (0.0-4.3) 07/29/18 04:47 0 % (0.0-1.8) 07/29/18 04:47 1.0 % 07/29/18 04:47 0 % 07/29/18 04:47 0 % 07/29/18 04:47 0 % 07/29/18 04:47 Nucleated RBC % 2.0 % (0.0-0.9) H 07/29/18 04:47 Seg Neutrophils # 14.7 K/mm3 (1.8-7.7) H 07/27/18 04:58 Seg Neutrophils # Man 16.1 K/mm3 (1.8-7.7) H 07/29/18 04:47 Band Neutrophils # 0.0 K/mm3 07/29/18 04:47 2.0 K/mm3 (1.2-5.4) 07/29/18 04:47 Abs React Lymphs (Man) 0.0 K/mm3 07/29/18 04:47 1.4 K/mm3 (0.0-0.8) H 07/29/18 04:47 0.2 K/mm3 (0.0-0.4) 07/29/18 04:47 0.0 K/mm3 (0.0-0.1) 07/29/18 04:47 0.2 K/mm3 07/29/18 04:47 0.0 K/mm3 07/29/18 04:47 0.0 K/mm3 07/29/18 04:47 Blast Cells # 0.0 K/mm3 07/29/18 04:47 WBC Morphology Not Reportable 07/29/18 04:47 Hypersegmented Neuts Not Reportable 07/29/18 04:47 Hyposegmented Neuts Not Reportable 07/29/18 04:47 Hypogranular Neuts Not Reportable 07/29/18 04:47 Not Reportable 07/29/18 04:47 Not Reportable 07/29/18 04:47 Not Reportable 07/29/18 04:47 Not Reportable 07/29/18 04:47 Not Reportable 07/29/18 04:47 Not Reportable 07/29/18 04:47 Consistent w auto 07/29/18 04:47 Not Reportable 07/29/18 04:47 Plt Clumps, EDTA Not Reportable 07/29/18 04:47 Not Reportable 07/29/18 04:47 Not Reportable 07/29/18 04:47 Not Reportable 07/29/18 04:47 Plt Morphology Comment Not Reportable 07/29/18 04:47 RBC Morphology Not Reportable 07/29/18 04:47 Dimorphic RBCs Not Reportable 07/29/18 04:47 Not Reportable 07/29/18 04:47 Not Reportable 07/29/18 04:47 Not Reportable 07/29/18 04:47 1+ 07/29/18 04:47 Not Reportable 07/29/18 04:47 Not Reportable 07/29/18 04:47 Not Reportable 07/29/18 04:47 Not Reportable 07/29/18 04:47 Not Reportable 07/29/18 04:47 Not Reportable 07/29/18 04:47 Not Reportable 07/29/18 04:47 Not Reportable 07/29/18 04:47 Not Reportable 07/29/18 04:47 Not Reportable 07/29/18 04:47 Not Reportable 07/29/18 04:47 Not Reportable 07/29/18 04:47 Not Reportable 07/29/18 04:47 Not Reportable 07/29/18 04:47 Not Reportable 07/29/18 04:47 Acanthocytes (Spur) Not Reportable 07/29/18 04:47 Rouleaux Not Reportable 07/29/18 04:47 Not Reportable 07/29/18 04:47 Not Reportable 07/29/18 04:47 Not Reportable 07/29/18 04:47 Not Reportable 07/29/18 04:47 Hem Pathologist Commnt No 07/29/18 04:47 PT 14.3 Sec. (12.2-14.9) 07/26/18 12:31 INR 1.14 (0.87-1.13) H 07/26/18 12:31 APTT 23.9 Sec. (24.2-36.6) L 07/26/18 12:31 Heparin Anti-Xa Level 0.33 U.I./ml (0.3-0.7) 07/27/18 20:00 Sodium 138 mmol/L (137-145) 07/29/18 04:47 Potassium 3.8 mmol/L (3.6-5.0) 07/29/18 04:47 Chloride 100.2 mmol/L (98-107) 07/29/18 04:47 Carbon Dioxide 24 mmol/L (22-30) 07/29/18 04:47 18 mmol/L 07/29/18 04:47 BUN 7 mg/dL (7-17) 07/29/18 04:47 0.7 mg/dL (0.7-1.2) 07/29/18 04:47 Estimated GFR > 60 ml/min 07/29/18 04:47 10 % 07/29/18 04:47 Glucose 83 mg/dL (65-100) 07/29/18 04:47 Calcium 10.0 mg/dL (8.4-10.2) 07/29/18 04:47 Phosphorus 2.60 mg/dL (2.5-4.5) 07/27/18 04:58 Magnesium 1.70 mg/dL (1.7-2.3) 07/27/18 04:58 Iron 17 ug/dL (37-170) L 07/27/18 04:58 TIBC 201 mcg/dL (250-450) L 07/27/18 04:58 179.7 ng/mL (13.0-400.0) 07/27/18 04:58 0.30 mg/dL (0.1-1.2) 07/22/18 13:06 AST 9 units/L (5-40) 07/22/18 13:06 ALT 6 units/L (7-56) L 07/22/18 13:06 114 units/L (35-129) 07/22/18 13:06 5.7 g/dL (6.3-8.2) L 07/22/18 13:06 3.2 g/dL (3.9-5) L 07/22/18 13:06 1.3 % 07/22/18 13:06 Vitamin B12 533.1 pg/mL (211-911) 07/27/18 04:58 6.44 ng/mL (7.3-26.0) L 07/27/18 04:58 Yellow (Yellow) 07/27/18 19:40 Clear (Clear) 07/27/18 19:40 8.0 (5.0-7.0) H 07/27/18 19:40 Ur Specific [place] 1.013 (1.003-1.030) 07/27/18 19:40 <15 mg/dl mg/dL (Negative) 07/27/18 19:40 Neg mg/dL (Negative) 07/27/18 19:40 Neg mg/dL (Negative) 07/27/18 19:40 Mod (Negative) 07/27/18 19:40 Neg (Negative) 07/27/18 19:40 Neg (Negative) 07/27/18 19:40 < 2.0 mg/dL (<2.0) 07/27/18 19:40 Ur Leukocyte Esterase Sm (Negative) 07/27/18 19:40 5.0 /HPF (0.0-6.0) 07/27/18 19:40 1.0 /HPF (0.0-6.0) 07/27/18 19:40 U Epithel Cells (Auto) 3.0 /HPF (0-13.0) 07/27/18 19:40 2+ /HPF (Negative) 07/25/18 10:35 2+ /HPF 07/25/18 10:35 Blood Type O POSITIVE 07/22/18 13:06 Antibody Screen Negative 07/22/18 13:06 Active Medications - Current Medications Current Medications: Generic Name Dose Route Start Last Admin Trade Name Freq PRN Reason Stop Dose Admin Acetaminophen 650 mg 07/22/18 12:30 07/22/18 17:05 Tylenol PO 650 mg Q4H PRN Administration Pain, Mild (1-3) Acetylcysteine 600 mg 07/27/18 18:00 07/28/18 22:13 Mucomyst Oral PO Not Given Q12HR DIANNE Amlodipine Besylate 10 mg 07/29/18 10:00 07/29/18 11:22 Norvasc PO 10 mg DAILY DIANNE Administration Diphenhydramine HCl 25 mg 07/22/18 16:27 Benadryl IV Q4H PRN Itching Docusate Sodium 100 mg 07/22/18 22:00 07/29/18 11:19 Colace PO Not Given BID DIANNE Famotidine 20 mg 07/24/18 22:00 07/29/18 11:19 Pepcid PO 20 mg BID DIANNE Administration Ferrous Sulfate 325 mg 07/24/18 22:00 07/29/18 11:19 Feosol PO 325 mg BID DIANNE Administration Folic Acid 1 mg 07/27/18 12:00 07/29/18 11:19 Folvite PO 1 mg QDAY DIANNE Administration Hydromorphone/Sodium Chloride 0 mg 07/22/18 18:00 07/22/18 18:03 Dilaudid Surgical Services Director 6mg/30ml IV 0.3 mg DIRECT DIANNE Administration Protocol Ceftriaxone Sodium 2 gm in 100 mls @ 200 mls/hr 07/26/18 20:00 07/28/18 22:14 Rocephin/Ns 2 Gm/100 Ml IV 07/29/18 23:59 200 mls/hr Q24H DIANNE Administration Protocol Mycophenolate Mofetil 1,000 mg 07/26/18 14:30 07/29/18 11:19 Cellcept PO 1,000 mg BID DIANNE Administration Naloxone HCl 0.1 mg 07/22/18 16:27 Narcan 0.4 Mg/1 Ml IV Q2MIN PRN Res Rate </= 8 or 02 SAT < 92% Ondansetron HCl 4 mg 07/22/18 12:30 07/23/18 08:31 Zofran Odt PO 4 mg Q8H PRN Administration Nausea And Vomiting Ondansetron HCl 4 mg 07/22/18 16:27 07/23/18 16:07 Zofran IV 4 mg Q4H PRN Administration Nausea Oxycodone/Acetaminophen 2 tab 07/26/18 00:01 07/29/18 05:06 Percocet 5/325 PO 2 tab Q6H PRN Administration Pain, Moderate (4-6) Prednisone 5 mg 07/26/18 14:00 07/29/18 11:18 Deltasone PO 5 mg QDAY DIANNE Administration Senna 8.6 mg 07/22/18 17:00 07/29/18 11:19 Senokot PO Not Given Q12HR DIANNE Tacrolimus 2 mg 07/24/18 22:00 07/29/18 11:18 Prograf PO 2 mg Q12HR DIANNE Administration
--- NOTE | 2018-07-29 13:13 | Progress Note ---
Assessment and Plan A:POD #7 s/p uterine fibroid embolization with gel foam r/o PE by ct of chest Acute PE - D/C Heparin drip per IM -await nephrology recommnedation for dispo - Anemia, chronic blood loss from Uterine Bleedings/p UFE - Continue to monitor H&H, - Hem consult as outpatient - stable h/h referr to hem for possible iron infusion - on iron History of kidney transplant - Continue CellCept, prednisone and Prograf - recommnedations from nephrology Consider discharge home today with f/u in 1-2 weeks with OVENS SUPERVISOR, nephrology and hematology Subjective - Subjective Date of service: 07/29/18 Principal diagnosis: vaginal bleeding s/p UFE sob suspected PE ruled out Patient reports: appetite normal, voiding normally, pain well controlled, flatus, bowel movement, ambulating normally Objective - Vital Signs Latest vital signs: Vital Signs Temp Pulse Resp BP Pulse Ox 07/29/18 11:22 104 H 157/92 07/29/18 06:45 98.6 F 77 20 133/85 96 07/29/18 01:38 85 159/95 07/29/18 00:49 98.8 F 85 20 159/95 100 07/28/18 17:35 97.9 F 18 169/97 Intake and Output 07/28/18 07/29/18 07/29/18 23:59 07:59 15:59 Intake Total 480 Balance 480 Intake: Intake, Free Water 480 Other: Voiding Method Toilet # Voids Void 2 Weight 95.4 kg Patient Weight 07/29/18 23:59 Weight 95.4 kg - Exam Breasts: Present: normal Cardiovascular: Present: Regular rate, Normal S1 Lungs: Present: Clear to auscultation, Normal air movement Abdomen: Present: normal appearance, soft, normal bowel sounds. Absent: distention, tenderness, guarding Uterus: Present: normal, firm. Absent: bogginess, tenderness Extremities: Present: normal Deep Tendon Reflex Grade: Normal +2 - Labs Labs: Abnormal lab results 07/29/18 Range/Units 04:47 WBC 19.9 H (4.5-11.0) K/mm3 RBC 2.49 L (3.65-5.03) M/mm3 Hgb 7.6 L (10.1-14.3) gm/dl Hct 23.4 L (30.3-42.9) % RDW 15.4 H (13.2-15.2) % Plt Count 664 H (140-440) K/mm3 Seg Neuts % (Manual) 81.0 H (40.0-70.0) % Lymphocytes % (Manual) 10.0 L (13.4-35.0) % Nucleated RBC % 2.0 H (0.0-0.9) % Seg Neutrophils # Man 16.1 H (1.8-7.7) K/mm3 Monocytes # (Manual) 1.4 H (0.0-0.8) K/mm3
[2018-07-29 13:15] VITALS: BP 139/85
--- NOTE | 2018-07-29 18:15 | Discharge Summary ---
Providers - Providers Date of Admission: 07/22/18 11:03 Date of discharge: 07/29/18 Attending physician: JT BILL 07/25/18 10:04 Consult to Physician [CONS] Stat Comment: Consulting Provider: VIRIDIANA LOGAN Physician Instructions: Reason For Exam: s/p UFE with leukocytosis 07/26/18 09:07 Consult to Physician [CONS] Stat Comment: Consulting Provider: RASHEED LAN Physician Instructions: Reason For Exam: Pulmonary embolism, s/p UFE, Renal transplant pt 07/26/18 11:37 Consult to Physician [CONS] Routine Comment: Consulting Provider: YOLANDA MITCHELL Physician Instructions: Reason For Exam: Pulmonary embolisim in patient with renal transpla 07/26/18 14:57 Consult to Physician [CONS] Routine Comment: Consulting Provider: NINA RODARTE Physician Instructions: Reason For Exam: renal transplant patient with PE - need CTA chest 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 The patient was triaged in the clinic and found to be hypotensive. She reported heavy vaginal bleeding with the passage of clots. Most recent ultrasound demonstrated a leiomyoma measuring 3.4cm. The patient complains of being lightheaded and weak. IR was contacted for a UFE which stopped bleeding. Upon discharge on Day 3 patient c/o SOB. She had a VQ scan as she has hx of donor kidney. Results showed a PE and commenced to start heparin and consults from IM and IR. Nephrology contacted and requested CT chest which was neg. Patient currently stable. Bleeding minimal. She will follow up with [facility] to continue to follow. She will also need a hematology consult to assess in assistance in treating anemia. patient discharged home with f/u in 1 week with IM, neprhology and OB Condition at discharge: Good Disposition: DC-01 TO HOME OR SELFCARE Plan - Discharge Medications Prescriptions: Ferrous Sulfate [Feosol 325 MG tab] 325 mg PO BID #60 tablet oxyCODONE /ACETAMINOPHEN [Percocet 5/325] 1 tab PO Q6HR PRN #30 tablet PRN Reason: Pain - Provider Discharge Summary Activity: routine, no sex for 6 weeks, no strenuous exercise Diet: routine Instructions: routine Additional instructions: [] Smoking cessation referral if applicable(refer to patient education folder for contact #) [] Refer to [facility] Booklet Call your doctor immediately for: * Fever > 100.5 * Heavy vaginal bleeding ( >1 pad per hour) * Severe persistent headache * Shortness of breath * Reddened, hot, painful area to leg or breast * Drainage or odor from incision. * Keep incision clean and dry at all times and follow doctor's instructions regarding bathing/showering - Follow up plan Follow up: PRIMARY CARE, [Primary Care Provider] - 7 Days Forms: [facility] Discharge Summary
[2018-07-29] MEDS: MUCOMYST ORAL PO SCH (19:17)
== END 2018-07-29 19:15 | disposition home or self-care (01) | DRG 749 ==
LOC: 3A 10:19 → UNDOADMIN 10:19 → OB 11:03 → 3A 07-26 11:34
PROVIDERS: ADMIT Obstetrics & Gynecology; ATTEND Obstetrics & Gynecology
PROC: 04LF3DU Occlusion of Left Uterine Artery with Intraluminal Device, Percutaneous Approach (ICD-10-PCS; principal; 2018-07-22)
PROC: 04LE3DT Occlusion of Right Uterine Artery with Intraluminal Device, Percutaneous Approach (ICD-10-PCS; 2018-07-22)
PROC: B41D1ZZ Fluoroscopy of Aorta and Bilateral Lower Extremity Arteries using Low Osmolar Contrast (ICD-10-PCS; 2018-07-22)
PROC: B41J1ZZ Fluoroscopy of Other Lower Arteries using Low Osmolar Contrast (ICD-10-PCS; 2018-07-22)
DX: D25.9 Leiomyoma of uterus, unspecified (principal); J96.00 Acute respiratory failure, unspecified whether with hypoxia or hypercapnia; N39.0 Urinary tract infection, site not specified; R65.10 Systemic inflammatory response syndrome (SIRS) of non-infectious origin without acute organ dysfunction; Z94.0 Kidney transplant status; N93.8 Other specified abnormal uterine and vaginal bleeding; D50.0 Iron deficiency anemia secondary to blood loss (chronic); I10 Essential (primary) hypertension; Z88.8 Allergy status to other drugs, medicaments and biological substances; Z68.32 Body mass index [BMI] 32.0-32.9, adult
CPT/HCPCS: 36415; 37243; 71046; 71275; 76770; 78582; 80048; 80053; 81001; 81015; 82607; 82728; 82747; 83550; 83735; 84100; 85007; 85014; 85018; 85025; 85027; 85049; 85520; 85610; 85730; 86850; 86900; 86901; 87086; 93970; 96374; 96376; G0378; A4649; A9540; A9558; C1769; C1887; C1894; J0690; J0696; J1170; J1644; J1885; J1956; J2250; J2405; J2916; J3010; J3420; J7040; J7120; J7507; J7512; J7517; Q0162; Q9967